=== PATIENT | female | born 1975 | race African-American/Black ===

== ENCOUNTER 2018-04-28 11:49 | Emergency (ER) | payer OTHER ==
[~2018-04-28] VITALS: Ht 172.7 cm; Wt 136.1 kg
--- OUTSIDE RECORDS SUMMARY | 2018-04-28 11:59 | XMS REPORT ---
Author Author Estuardo Waldrop [facility] eClinicalWorks Address Unknown Phone Unavailable Care Team Providers Care Head Automatic Sawyer Name Role Phone Estuardo Waldrop Unavailable Allergies No Known Allergies Problems Problem Type Condition ICD-9 Code Onset Dates Condition Status Problem Wheezing 786.07 Active Problem Hyperlipidemia NOS 272.4 Active Problem Diabetes mellitus 250.00 Active Problem Depression with anxiety 300.4 Active Medications Medication Code System Code Instructions Start Date End Date Status Dosage One Touch Test Strips NDC 0 test daily December 30, 2014 as directed OneTouch Glucometer NDC 0 for Diabetes test daily December 30, 2014 as directed Results No Known Results Summary Purpose eClinicalWorks Submission
--- OUTSIDE RECORDS SUMMARY | 2018-04-28 11:59 | XMS REPORT ---
Author Author Estuardo Waldrop [facility] eClinicalWorks Address Unknown Phone Unavailable Care Team Providers Care Cold Rolling Supervisor Name Role Phone Estuardo Waldrop Unavailable Allergies No Known Allergies Problems Problem Type Condition Code Onset Dates Condition Status Problem Depression with anxiety 300.4 Active Problem Wheezing 786.07 Active Problem Hyperlipidemia NOS 272.4 Active Problem Hyperlipidemia E78.5 Active Problem BMI 50.0-59.9, adult Z68.43 Active Problem Diabetes mellitus E11.9 Active Problem Osteoarthritis of both knees M17.0 Active Problem Diabetes mellitus 250.00 Active Problem Depression with anxiety F41.8 Active Problem Surgical menopause N95.8 Active Medications Medication Code System Code Instructions Start Date End Date Status Dosage [facility] 59246 325 mg-7.5 mg orally every 6 hours prn March 10, 2015 1 tab(s) Results No Known Results Summary Purpose eClinicalWorks Submission
--- OUTSIDE RECORDS SUMMARY | 2018-04-28 11:59 | XMS REPORT ---
Author Author Estuardo Waldrop [facility] Spec Address [address] [place] [address] Care Team Providers Care Computer Operations Manager Name Role Phone Estuardo Waldrop Unavailable PROBLEMS Type Condition ICD9-CM Code [id number] Code Onset Dates Condition Status SNOMED Code Problem Osteoarthritis of both knees M17.0 Active 432910195 Problem Depression with anxiety F41.8 Active 560984585 Problem Surgical menopause N95.8 Active 674204614 Problem Depression with anxiety 300.4 Active 548271826 Problem Hyperlipidemia NOS 272.4 Active 70617685 Problem Wheezing 786.07 Active 66079909 Problem Diabetes mellitus 250.00 Active 15601642 Problem Anxiety F41.9 Active 85618215 Problem Essential hypertension I10 Active 58349075 Problem Hyperlipidemia LDL goal <70 E78.5 Active 29993601 Problem BMI 50.0-59.9, adult Z68.43 Active 394542361 Problem Severe single current episode of major depressive disorder, without 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 Warner 09/18 Surgical History REGINALD/BSO--[place] 11/2001 Surgical History Bladder repair x 2 Surgical History Left knee meniscus repair Surgical History Laparoscopy Surgical History C/S x 3 Surgical History Ventral hernia repair
--- OUTSIDE RECORDS SUMMARY | 2018-04-28 11:59 | XMS REPORT | Referral Summary ---
Author Author [facility] Organization [facility] Address Unknown Phone Unavailable Care Team Providers Care Diesel Mechanic Apprentice Name Role Phone Estuardo Hope PCP Encounter VC Date(s): 02/14/18 - 02/15/18 [facility] [address] [place] [address]- Encounter Diagnosis Chest pain (Discharge Diagnosis) - 02/14/18 Diabetes (Discharge Diagnosis) - 02/14/18 Chest wall pain (Discharge Diagnosis) - 02/15/18 Hypertension (Discharge Diagnosis) - 02/15/18 Dyslipidemia (Discharge Diagnosis) - 02/15/18 Discharge Disposition: 01-Home or Self Care Attending Physician: Young Armendariz MD Admitting Physician: Logan Conde DO Vital Signs Most recent to 1 oldest [Reference Range]: Temperature Oral 36.7 degC [35.8-37.3 degC] (02/15/18 8:00 AM) Peripheral Pulse 67 bpm Rate [60-100 bpm] (02/14/18 9:29 PM) Heart Rate Monitored 77 bpm [60-100 bpm] (02/15/18 8:00 AM) Respiratory Rate 20 br/min [14-20 br/min] (02/15/18 8:00 AM) Blood Pressure 155/72 mmHg [90-140/60-90 mmHg] *HI* (02/15/18 8:00 AM) Mean Arterial 114 mmHg Pressure, Cuff (02/14/18 8:31 PM) SpO2 95 % (02/15/18 8:00 AM) Remote Telemetry Ongoing (02/15/18 8:00 AM) Problem List Condition Effective Dates Status Health Status Informant Acute Active pain(Confirmed) Cardiac Active disorder(Confirmed)1 Diabetes Active patient mellitus(Confirmed) No Chronic Problems Active 1Problem added automatically by system based on initiation of Cardiac Output/ Ineffective Cardiac Perfusion Plan of Care Allergies, Adverse Reactions, Alerts Substance Reaction Severity Status penicillin Adverse Reaction Active aspirin Adverse Reaction Active morphine Active nabumetone Adverse Reaction Active Compazine Active Reglan Active acetaminophen-HYDROcodone Adverse Reaction Active Medications atorvastatin 40 mg oral tablet 40 mg 1 tabs, Oral, Daily, # 30 tabs, 0 Refill(s) Start Date: 02/15/18 Status: Ordered Centrum Silver Ultra Women's 1 tabs, Oral, Bedtime (once a day), 0 Refill(s) Start Date: 02/14/18 Status: Ordered cyclobenzaprine 5 mg oral tablet 5 mg 1 tabs, Oral, TID, Muscle Spasm, X 5 days, # 10 tabs, 0 Refill(s) Start Date: 02/15/18 Stop Date: 02/20/18 Status: Ordered lisinopril 5 mg oral tablet 5 mg 1 tabs, Oral, Daily, # 30 tabs, 0 Refill(s) Start Date: 02/15/18 Stop Date: 03/17/18 Status: Ordered traZODone 50 mg oral tablet 50 mg 1 tabs, Oral, Daily, Anxiety, 0 Refill(s) Start Date: 02/14/18 Status: Ordered traZODone 50 mg oral tablet 100 mg 2 tabs, Oral, Bedtime (once a day), Sleep, 0 Refill(s) Start Date: 02/14/18 Status: Ordered Ventolin HFA 90 mcg/inh inhalation aerosol 2 puffs, Inhalation, QID, as needed for wheezing, 0 Refill(s) Start Date: 02/14/18 Status: Ordered Results Hematology Most recent to 1 oldest [Reference Range]: WBC [4.8-10.8 6.3 10*3/uL 10*3/uL] (02/15/18 4:28 AM) RBC [4.00-5.20] 4.11 (02/15/18 4:28 AM) Hgb [12.0-16.0 11.6 gm/dL gm/dL] *LOW* (02/15/18 4:28 AM) Hct [37.0-47.0 %] 37.2 % (02/15/18 4:28 AM) MCV [82.0-99.0 fL] 90.5 fL (02/15/18 4:28 AM) MCH [27.0-32.0 pg] 28.2 pg (02/15/18 4:28 AM) MCHC [32.0-36.0 31.2 gm/dL gm/dL] *LOW* (02/15/18 4:28 AM) RDW [11.5-14.5 %] 13.6 % (02/15/18 4:28 AM) Platelet [150-400 254 10*3/uL 10*3/uL] (02/15/18 4:28 AM) MPV [9.4-12.4 fL] 9.8 fL (02/15/18 4:28 AM) Immature 0.1 % Granulocytes (02/14/18 4:03 PM) [0.0-1.0 %] Neutrophils [51-75 56 % %] (02/14/18 4:03 PM) Lymphocytes [20-46 39 % %] (02/14/18 4:03 PM) Monocytes [4-11 %] 4 % (02/14/18 4:03 PM) Eosinophils [0-4 %] 1 % (02/14/18 4:03 PM) Basophils [0-2 %] 0 % (02/14/18 4:03 PM) Neutro Absolute 3.81 [1.90-7.00] (02/14/18 4:03 PM) Lymph Absolute 2.68 [0.80-3.30] (02/14/18 4:03 PM) [place] Absolute 0.27 [0.30-1.00] *LOW* (02/14/18 4:03 PM) Eos Absolute 0.08 [0.00-0.50] (02/14/18 4:03 PM) Baso Absolute 0.01 [0.00-0.20] (02/14/18 4:03 PM) Nucleated RBC 0.0 /100 WBC Automated [0 /100 (02/14/18 4:03 PM) WBC] Chemistry Most recent to 1 oldest [Reference Range]: Sodium Lvl [136-144 141 mEq/L mEq/L] (02/15/18 4:28 AM) Potassium Lvl 3.3 mEq/L [3.6-5.1 mEq/L] *LOW* (02/15/18 4:28 AM) Chloride [99-109 106 mEq/L mEq/L] (02/15/18 4:28 AM) CO2 [22-32 mEq/L] 27 mEq/L (02/15/18 4:28 AM) AGAP [3-20 mEq/L] 8 mEq/L (02/15/18 4:28 AM) BUN [4-20 mg/dL] 9 mg/dL (02/15/18 4:28 AM) Glucose Lvl [70-100 121 mg/dL mg/dL] *HI* (02/15/18 4:28 AM) Creatinine Lvl 0.68 mg/dL [0.44-1.03 mg/dL] (02/15/18 4:28 AM) eGFR [>60 mL/min] >60 mL/min 1 (02/15/18 4:28 AM) Calcium Lvl 9.0 mg/dL [8.6-10.0 mg/dL] (02/15/18 4:28 AM) Albumin Lvl [3.5-4.8 3.7 gm/dL gm/dL] (02/15/18 4:28 AM) Total Protein 7.6 gm/dL [6.1-7.9 gm/dL] (02/14/18 4:03 PM) Globulin [1.9-4.3 3.6 gm/dL gm/dL] (02/14/18 4:03 PM) ALT [14-54 U/L] 14 U/L (02/14/18 4:03 PM) AST [15-41 U/L] 16 U/L (02/14/18 4:03 PM) Alk Phos [26-104 83 U/L U/L] (02/14/18 4:03 PM) Bili Total [0.2-1.2 0.8 mg/dL 2 mg/dL] (02/14/18 4:03 PM) Phosphorus [2.4-4.7 5.5 mg/dL 3 mg/dL] *HI* (02/15/18 4:28 AM) Troponin [<0.06 <0.05 ng/mL ng/mL] (02/15/18 1:46 AM) Chol [0-199 mg/dL] 292 mg/dL *HI* (02/14/18 4:03 PM) Trig [0-149 mg/dL] 275 mg/dL *HI* (02/14/18 4:03 PM) HDL [40-84 mg/dL] 38 mg/dL *LOW* (02/14/18 4:03 PM) LDL [0-130 mg/dL] 199 mg/dL *HI* (02/14/18 4:03 PM) VLDL Cholesterol 55 mg/dL [0-28 mg/dL] *HI* (02/14/18 4:03 PM) Cardiac Risk 7.7 [0.0-5.0] *HI* (02/14/18 4:03 PM) TSH [0.35-5.50 1.30 mcIU/mL mcIU/mL] (02/14/18 4:03 PM) Hgb A1c [4.1-5.6 %] 6.6 % *HI* (02/14/18 4:03 PM) eAvg Glucose 142.7 mg/dL (02/14/18 4:03 PM) 1Result Comment: Multiply eGFR results by 1.21 for race. 2Result Comment: Naproxen, specifically the metabolite O-desmethylnaproxen, may cause spurious elevation in Total Bilirubin levels. 3Result Comment: High dosages of liposomal Amphotericin B (AmBisome) therapy or other drug preparations that use a liposomal envelope to facilitate drug delivery may cause falsely elevated results for phosphorus. Immunizations No data available for this section Procedures Procedure Date Related Diagnosis Body Site Status Hysterectomy Completed Social History Social History Type Response Smoking Status 10 or more cigarettes (1/2 pack or more)/day in last 30 days ; Type: Cigarettes; Tobacco use per day: 1/2 pack or more entered on: 02/14/18 Assessment and Plan No data available for this section
--- OUTSIDE RECORDS SUMMARY | 2018-04-28 11:59 | XMS REPORT ---
Author Author Estuardo Waldrop [facility] eClinicalWorks Address Unknown Phone Unavailable Care Team Providers Care School Cafeteria Cook Head Name Role Phone Estuardo Waldrop CP Unavailable Allergies No Known Allergies Problems Problem Type Condition Code Onset Dates Condition Status Problem Depression with anxiety 300.4 Active Problem Wheezing 786.07 Active Problem Hyperlipidemia NOS 272.4 Active Problem Hyperlipidemia LDL goal <70 E78.5 Active Problem BMI 50.0-59.9, adult Z68.43 Active Problem Type 2 diabetes mellitus without complications E11.9 Active Problem Osteoarthritis of both knees M17.0 Active Problem Diabetes mellitus 250.00 Active Problem Depression with anxiety F41.8 Active Problem Surgical menopause N95.8 Active Medications Medication Code System Code Instructions Start Date End Date Status Dosage [facility] 69697 325 mg-7.5 mg orally every 6 hours prn March 30, 2016 1 tab(s) Results No Known Results Summary Purpose eClinicalWorks Submission
--- OUTSIDE RECORDS SUMMARY | 2018-04-28 11:59 | XMS REPORT ---
Author Author Estuardo Waldrop [facility] eClinicalWorks Address Unknown Phone Unavailable Care Team Providers Care Coil Shaper Name Role Phone Estuardo Waldrop CP Unavailable [...] End Date Status Dosage [facility] 45352 325 mg-7.5 mg orally every 6 hours prn January 27, 2016 1 tab(s) Results No Known Results Summary Purpose eClinicalWorks Submission
--- OUTSIDE RECORDS SUMMARY | 2018-04-28 11:59 | XMS REPORT ---
Author Author Estuardo Waldrop Organization [facility] Spec Address [address] [place] [address] Care Team Providers Care Customer Care Associate Name Role Phone Estuardo Waldrop Unavailable PROBLEMS Type Condition ICD9-CM Code [id number] Code Onset Dates Condition Status SNOMED Code Problem Osteoarthritis of both knees M17.0 Active 261428503 Problem Depression with anxiety F41.8 Active 156944751 Problem Surgical menopause N95.8 Active 428377851 Problem Depression with anxiety 300.4 Active 278917580 Problem Hyperlipidemia NOS 272.4 Active 61900748 Problem Wheezing 786.07 Active 66824368 Problem Diabetes mellitus 250.00 Active 47306166 Problem Anxiety F41.9 Active 22076602 Problem Essential hypertension I10 Active 24664443 Problem Hyperlipidemia LDL goal <70 E78.5 Active 51662057 Problem BMI 50.0-59.9, adult Z68.43 Active 096686239 Problem Severe single current episode of major depressive disorder, 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
--- OUTSIDE RECORDS SUMMARY | 2018-04-28 11:59 | XMS REPORT ---
Author Author Estuardo Waldrop [facility] eClinicalWorks Address Unknown Phone Unavailable Care Team Providers Care Tanning Solution Maker Name Role Phone Estuardo Waldrop Unavailable Allergies No Known Allergies Problems Problem Type Condition ICD-9 Code Onset Dates Condition Status Problem Wheezing 786.07 Active Problem Hyperlipidemia NOS 272.4 Active Problem Diabetes mellitus 250.00 Active Problem Depression with anxiety 300.4 Active Medications No Known Medications Results No Known Results Summary Purpose eClinicalWorks Submission
--- OUTSIDE RECORDS SUMMARY | 2018-04-28 11:59 | XMS REPORT ---
Author Author Estuardo Waldrop Organization eClinicalWorks Address Unknown Phone Unavailable Care Team Providers Care Aquatic Physiotherapist Name Role Phone Estuardo Waldrop Unavailable Allergies No Known Allergies Problems Problem Type Condition ICD-9 Code Onset Dates Condition Status Problem Wheezing 786.07 Active Problem Hyperlipidemia NOS 272.4 Active Problem Diabetes mellitus 250.00 Active Problem Depression with anxiety 300.4 Active Medications Medication Code System Code Instructions Start Date End Date Status Dosage [facility] 85283 325 mg-7.5 mg orally every 6 hours December 23, 2014 1 tab(s) Results No Known Results Summary Purpose eClinicalWorks Submission
--- OUTSIDE RECORDS SUMMARY | 2018-04-28 11:59 | XMS REPORT | Referral Summary ---
Author Author [facility] Organization [facility] Address Unknown Phone Unavailable Care Team Providers Care Summer Associate Name Role Phone No PCP, Pt States PCP Encounter VC Date(s): 07/18/16 - 07/18/[address] [facility] [address] [place] [address]- Discharge Diagnosis: Muscle strain Discharge Disposition: 01-Home or Self Care Attending Physician: Wagner Bowen MD Admitting Physician: Wagner Bowen MD Vital Signs Most recent to 1 oldest [Reference Range]: Temperature Temporal 36 degC Artery [36.3-37.8 *LOW* degC] (07/18/16 3:37 PM) Peripheral Pulse 79 bpm Rate [60-100 bpm] (07/18/16 5:15 PM) Respiratory Rate 14 br/min [14-20 br/min] (07/18/16 5:15 PM) Blood Pressure 124/88 mmHg [90-140/60-90 mmHg] (07/18/16 5:15 PM) SpO2 100 % (07/18/16 5:15 PM) Problem List No Known Problems Allergies, Adverse Reactions, Alerts Substance Reaction Severity Status acetaminophen-HYDROcodone Adverse Reaction Active aspirin Adverse Reaction Active Compazine Active morphine Active nabumetone Adverse Reaction Active penicillin Adverse Reaction Active Reglan Active Medications atorvastatin Oral, Daily, 0 Refill(s) Start Date: 07/18/16 Status: Ordered cyclobenzaprine 10 mg oral tablet 10 mg 1 tabs, Oral, TID, as needed for spasm, X 5 days, # 15 tabs, 0 Refill(s) Start Date: 07/18/16 Stop Date: 07/23/16 Status: Ordered ibuprofen 800 mg oral tablet 800 mg 1 tabs, Oral, q8hr, as needed for pain, X 7 days, # 21 tabs, 0 Refill(s) Start Date: 07/18/16 Stop Date: 07/25/16 Status: Ordered [place] 5 mg-325 mg oral tablet 1 tabs, Oral, q6hr, as needed for pain, X 5 days, # 12 tabs, 0 Refill(s) Start Date: 07/18/16 Stop Date: 07/23/16 Status: Ordered Premarin Oral, Daily, 0 Refill(s) Start Date: 07/18/16 Status: Ordered Results No data available for this section Immunizations No data available for this section Procedures Procedure Date Related Diagnosis Body Site Hysterectomy Social History Social History Type Response Smoking Status Current every day smoker; Tobacco use per day: Between 1/4 pack and 1/2 pack Assessment and Plan No data available for this section
--- OUTSIDE RECORDS SUMMARY | 2018-04-28 11:59 | XMS REPORT ---
Author Author Estuardo Waldrop Organization [facility] Spec Address [address] [place] [address] Care Team Providers Care Broadloom Weaver Name Role Phone Estuardo Waldrop Unavailable PROBLEMS Type Condition ICD9-CM Code [id number] Code Onset Dates Condition Status SNOMED Code Problem Osteoarthritis of both knees M17.0 Active 125937385 Problem Depression with anxiety F41.8 Active 843699013 Problem Surgical menopause N95.8 Active 509589374 Problem Depression with anxiety 300.4 Active 723853725 Problem Hyperlipidemia NOS 272.4 Active 47366931 Problem Wheezing 786.07 Active 77015696 Problem Diabetes mellitus 250.00 Active 31592817 Problem Anxiety F41.9 Active 53557555 Problem Essential hypertension I10 Active 12830875 Problem Hyperlipidemia LDL goal <70 E78.5 Active 02128640 Problem BMI 50.0-59.9, adult Z68.43 Active 432965211 Problem Severe single current episode of major depressive disorder, 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 Non Drug Allergy Mar, Active ASA hives Non Drug Allergy Mar, Active Compazine anxiety Non Drug Allergy Mar, Active PCN hives Non Drug Allergy Mar, Active SOCIAL HISTORY No smoking Hx information available PLAN OF CARE Activity Details Follow Up prn, 4 Months Reason:null VITAL SIGNS Temperature 98.3 degrees Fahrenheit 2017-03-09 Weight 363.4 lbs 2017-03-09 Height 68 in 2017-03-09 BMI 55.25 kg/m2 2017-03-09 Oximetry 96 2017-03-09 Blood pressure systolic 132 mm Hg 2017-03-09 Blood pressure diastolic 90 mm Hg 2017-03-09 MEDICATIONS Medication Instructions Dosage Frequency Start Date End Date Duration Status Invokamet 150 mg-1000 mg orally 2 times a day (with meals) 1 tab(s) 09 Feb, 2017 Active Ventolin HFA CFC free 90 mcg/inh inhaled 4 times a day 2 puff(s) 6h Oct 30 day(s) Active BuPROPion Hydrochloride XL 150 mg/24 hours orally every 24 hours 1 tab(s) Nov, 30 day(s) Active One Touch Test Strips as directed February, Active atorvastatin 40 mg orally once a day (at bedtime) 1 tab(s) Nov, Active lisinopril/hctz 20 mg/12.5 orally once a day 1 tab(s) 24h Dec, Active OneTouch Glucometer for Diabetes as directed Dec, Active one touch lancets as directed 12h February, Active RESULTS No Results PROCEDURES Procedure Date Ordered Related Diagnosis Body Site Urine Culture/[place] Count March 09, 2017 Prev Visit, Est - Age 40-64 March 09, 2017 Comprehensive Metabolic Panel March 09, 2017 Glycated Hemoglobin Test March 09, 2017 Boostrix March 09, 2017 Urinalysis, Auto, w/o Scope March 09, 2017 VENIPUNCT, ROUTINE* March 09, 2017 Automated Hemogram-CBC w/Diff March 09, 2017 Lipid Panel March 09, 2017 Microalbumin, Quantitative March 09, 2017 Assay of Creatinine Urine March 09, 2017 IMMUNIZATIONS Vaccine Route Administration Date Status Boostrix IM Intramuscular March 09, 2017 Administered
--- OUTSIDE RECORDS SUMMARY | 2018-04-28 11:59 | XMS REPORT ---
Author Author Estuardo Waldrop [facility] eClinicalWorks Address Unknown Phone Unavailable Care Team Providers Care Leather Roller Name Role Phone Estuardo Waldrop Unavailable Allergies [...] Start Date End Date Status Dosage [facility] 11193 325 mg-7.5 mg orally every 6 hours prn March 10, 2015 1 tab(s) Results No Known Results Summary Purpose eClinicalWorks Submission
--- OUTSIDE RECORDS SUMMARY | 2018-04-28 12:00 | XMS REPORT ---
Author Author Estuardo Waldrop [facility] eClinicalWorks Address Unknown Phone Unavailable Care Team Providers Care Credit Risk Review Officer Name Role Phone Estuardo Waldrop Unavailable Allergies [...] Instructions Start Date End Date Status Dosage [facility] [address] 325 mg-7.5 mg orally every 6 hours prn March 10, 2015 1 tab(s) Results No Known Results Summary Purpose eClinicalWorks Submission
--- OUTSIDE RECORDS SUMMARY | 2018-04-28 12:00 | XMS REPORT ---
Author Author Estuardo Waldrop [facility] eClinicalWorks Address Unknown Phone Unavailable Care Team Providers Care Dry Chain Offbearer Name Role Phone Estuardo Waldrop CP Unavailable [...] Instructions Start Date End Date Status Dosage Acetaminophen-Hydrocodone Bitartrate [facility] 677 325 mg-7.5 mg orally every 6 hours Jun 09, 2016 1 tab(s) Results No Known Results Summary Purpose eClinicalWorks Submission
--- OUTSIDE RECORDS SUMMARY | 2018-04-28 12:00 | XMS REPORT ---
Author Author Estuardo Waldrop Organization eClinicalWorks Address Unknown Phone Unavailable Care Team Providers Care Washer Machine Name Role Phone Estuardo Waldrop Unavailable Allergies No Known Allergies Problems Problem Type Condition Code Onset Dates Condition Status Problem Wheezing 786.07 Active Problem Hyperlipidemia NOS 272.4 Active Problem Diabetes mellitus 250.00 Active Problem Depression with anxiety 300.4 Active Medications Medication Code System Code Instructions Start Date End Date Status Dosage [facility] 29894 325 mg-7.5 mg orally every 6 hours March 10, 2015 1 tab(s) Results No Known Results Summary Purpose eClinicalWorks Submission
--- OUTSIDE RECORDS SUMMARY | 2018-04-28 12:00 | XMS REPORT ---
Author Author Estuardo Waldrop [facility] eClinicalWorks Address Unknown Phone Unavailable Care Team Providers Care Home Health Care Physician Name Role Phone Estuardo Waldrop Unavailable Allergies [...] F41.8 Active Problem Surgical menopause N95.8 Active Assessment Encounter for long-term current use of medication Z79.899 Active Assessment Diabetes mellitus E11.9 Active Assessment Hyperlipidemia E78.5 Active Medications Medication Code System Code Instructions Start Date End Date Status Dosage atorvastatin NDC 42117 40 mg orally once a day (at bedtime) Aug 10, 2015 1 tab(s) estradiol NDC 94087 0.5 mg orally once a day Aug 11, 2015 1 tab(s) Results No Known Results Summary Purpose eClinicalWorks Submission
--- OUTSIDE RECORDS SUMMARY | 2018-04-28 12:00 | XMS REPORT ---
Author Author Estuardo Waldrop [facility] eClinicalWorks Address Unknown Phone Unavailable Care Team Providers Care Test Lead Application Testing Name Role Phone Estuardo Waldrop CP Unavailable [...] Date End Date Status Dosage Acetaminophen-Hydrocodone Bitartrate [facility] 677 325 mg-7.5 mg orally every 6 hours Jun 09, 2016 1 tab(s) Results No Known Results Summary Purpose eClinicalWorks Submission
--- OUTSIDE RECORDS SUMMARY | 2018-04-28 12:00 | XMS REPORT ---
Author Author Estuardo Waldrop Organization [facility] Spec Address [address] [place] [address] Care Team Providers Care Cellophane Wrapping Examiner Name Role Phone Estuardo Waldrop Unavailable PROBLEMS Type Condition ICD9-CM Code [id number] Code Onset Dates Condition Status SNOMED Code Problem Osteoarthritis of both knees M17.0 Active 096186783 Problem Depression with anxiety F41.8 Active 050224284 Problem Surgical menopause N95.8 Active 243978027 Problem Anxiety F41.9 Active 91548144 Problem Essential hypertension I10 Active 34294733 Problem Hyperlipidemia LDL goal <70 E78.5 Active 92950525 Problem BMI 50.0-59.9, adult Z68.43 Active 827802554 Problem Severe single current episode of major depressive disorder, 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 Non Drug Allergy Nov, Active ASA hives Non Drug Allergy Nov, Active Compazine anxiety Non Drug Allergy Nov, Active PCN hives Non Drug Allergy Nov, Active SOCIAL HISTORY No smoking Hx information available PLAN OF CARE VITAL SIGNS Temperature 98.9 degrees Fahrenheit 2016-11-17 Weight 374.8 lbs 2016-11-17 Height 68 in 2016-11-17 BMI 56.98 kg/m2 2016-11-17 Oximetry 98 2016-11-17 Blood pressure systolic 142 mm Hg 2016-11-17 Blood pressure diastolic 90 mm Hg 2016-11-17 MEDICATIONS Medication Instructions Dosage Frequency Start Date End Date Duration Status one touch lancets as directed 12h February, Active lisinopril/hctz 20 mg/12.5 orally once a day 1 tab(s) 24h Dec, 30 days Active atorvastatin 40 mg orally once a day (at bedtime) 1 tab(s) Nov, 30 day(s) Active One Touch Test Strips as directed February, Active BuPROPion Hydrochloride XL 150 mg/24 hours orally every 24 hours 1 tab(s) Nov, 30 day(s) Active Invokamet 150 mg-1000 mg orally 2 times a day (with meals) 1 tab(s) Nov, 0 Active OneTouch Glucometer for Diabetes as directed Dec, Active Ventolin HFA CFC free 90 mcg/inh inhaled 4 times a day 2 puff(s) 6h Oct 30 day(s) Active RESULTS Name Result Date Reference Range Hemoglobin A1c 2016-11-17 HBA1C 7.7 4.5-6.2 Lipid Panel 2016-11-17 CHOLESTEROL 275 0-200 TRIGLYCERIDES 176 30-150 HDL CHOLESTEROL 41 32-96 LDL (CALCULATED) 199 0-99 HDL RISK FACTOR 6.7 0.0-4.0 BMP - Basic Metabolic Panel (8) 2016-11-17 SODIUM 142 136-145 POTASSIUM 4.4 3.5-5.1 CHLORIDE 104 98-107 CARBON DIOXIDE 32 21-32 GLUCOSE 132 74-108 BUN 8 7-18 CREATININE 0.62 0.60-1.30 BUN/CREAT RATIO 12.9 12.0-20.0 CALCIUM 8.6 8.5-10.1 PROCEDURES Procedure Date Ordered Related Diagnosis Body Site Glycated Hemoglobin Test Nov 17, 2016 Lipid Panel Nov 17, 2016 HYSTERECTOMY/BLADDER REPAIR Nov 17, 2016 Basic Metabolic Panel Nov 17, 2016 Office/Outpatient Visit-Est Nov 17, 2016 VENIPUNCT, ROUTINE* Nov 17, 2016 IMMUNIZATIONS No Known Immunizations
--- OUTSIDE RECORDS SUMMARY | 2018-04-28 12:00 | XMS REPORT ---
Author Author Estuardo Waldrop [facility] eClinicalWorks Address Unknown Phone Unavailable Care Team Providers Care Stockholder Name Role Phone Estuardo Waldrop Unavailable Allergies No Known Allergies Problems Problem Type Condition Code Onset Dates Condition Status Problem Wheezing 786.07 Active Problem Hyperlipidemia NOS 272.4 Active Problem Diabetes mellitus 250.00 Active Problem Depression with anxiety 300.4 Active Medications Medication Code System Code Instructions Start Date End Date Status Dosage [facility] 11235 325 mg-7.5 mg orally every 6 hours January 19, 2015 1 tab(s) Results No Known Results Summary Purpose eClinicalWorks Submission
--- OUTSIDE RECORDS SUMMARY | 2018-04-28 12:00 | XMS REPORT ---
Author Author Estuardo Waldrop Organization eClinicalWorks Address Unknown Phone Unavailable Care Team Providers Care Pharmacy Customer Care Specialist Name Role Phone Estuardo Waldrop Unavailable Allergies No Known Allergies Problems Problem Type Condition Code Onset Dates Condition Status Problem Wheezing 786.07 Active Problem Hyperlipidemia NOS 272.4 Active Problem Diabetes mellitus 250.00 Active Problem Depression with anxiety 300.4 Active Medications Medication Code System Code Instructions Start Date End Date Status Dosage alprazolam NDC 62260 1 mg orally 3 times a day February 09, 2015 1/2 to 1 tab(s) [place] NDC 19644 325 mg-7.5 mg orally every 6 hours February 09, 2015 1 tab(s) one touch lancets NDC 0 BID February 09, 2015 as directed One Touch Test Strips NDC 0 test daily February 09, 2015 as directed Results No Known Results Summary Purpose eClinicalWorks Submission
--- OUTSIDE RECORDS SUMMARY | 2018-04-28 12:00 | XMS REPORT ---
Author Author Estuardo Waldrop [facility] eClinicalWorks Address Unknown Phone Unavailable Care Team Providers Care Drive Tester Name Role Phone Estuardo Waldrop Unavailable Allergies [...] Instructions Start Date End Date Status Dosage [facility] 92875 325 mg-7.5 mg orally every 6 hours prn March 10, 2015 1 tab(s) Results No Known Results Summary Purpose eClinicalWorks Submission
--- OUTSIDE RECORDS SUMMARY | 2018-04-28 12:00 | XMS REPORT ---
Author Author Estuardo Waldrop eClinicalWorks Address Unknown Phone Unavailable Care Team Providers Care Mathematical Statistician Name Role Phone Estuardo Waldrop CP Unavailable Allergies, Adverse Reactions, Alerts Substance Reaction Event Type Metformin diarrhea. Non Drug Allergy ASA hives Non Drug Allergy Compazine anxiety Non Drug Allergy PCN hives Non Drug Allergy Problems Problem Type Condition Code Onset Dates [...] Active Problem Surgical menopause N95.8 Active Assessment Pedal edema R60.0 Active Assessment Essential (primary) hypertension I10 Active Assessment Type 2 diabetes mellitus without complications E11.9 Active Assessment BMI 50.0-59.9, adult Z68.43 Active Assessment Depression with anxiety F41.8 Active Assessment Bilateral primary osteoarthritis of knee M17.0 Active Assessment Hyperlipidemia LDL goal <70 E78.5 Active Assessment Chronic, continuous use of opioids F11.90 Active Medications Medication Code System Code Instructions Start Date End Date Status Dosage lisinopril/hctz NDC 07503 20 mg/12.5 orally once a day December 29, 2015 1 tab(s) atorvastatin NDC 96916 40 mg orally once a day (at bedtime) Aug 10, 2015 1 tab(s) Ventolin HFA NDC 37478 CFC free 90 mcg/inh inhaled 4 times a day Oct 23, 2013 2 puff(s) one touch lancets NDC 0 BID February 09, 2015 as directed [place] NDC 04555 325 mg-7.5 mg orally every 6 hours prn March 10, 2015 1 tab(s) lorazepam NDC 39935 1 mg orally 3 times a day 1 tab(s) glyburide NDC 05534 5 mg orally twice daily December 29, 2014 1 tab(s) OneTouch Glucometer NDC 0 for Diabetes test daily December 30, 2014 as directed One Touch Test Strips NDC 0 test daily February 09, 2015 as directed Procedures Procedure Coding System Code Date Office/Outpatient Visit-Est CPT-4 85630 December 29, 2015 Vital Signs Date/Time: December 29, 2015 Temperature 98.4 F Blood Pressure Diastolic 80 mm Hg Blood Pressure Systolic 130 mm Hg BMI 58.50 Index Height 68 in Weight 384.8 lbs Pulse 94 /min Results No Known Results Summary Purpose eClinicalWorks Submission
--- OUTSIDE RECORDS SUMMARY | 2018-04-28 12:00 | XMS REPORT ---
Author Author Estuardo Waldrop [facility] eClinicalWorks Address Unknown Phone Unavailable Care Team Providers Care Forest Pathology Teacher Name Role Phone Estuardo Waldrop Unavailable Allergies No Known Allergies Problems Problem Type Condition ICD-9 Code Onset Dates Condition Status Problem Wheezing 786.07 Active Problem Hyperlipidemia NOS 272.4 Active Problem Diabetes mellitus 250.00 Active Problem Depression with anxiety 300.4 Active Medications Medication Code System Code Instructions Start Date End Date Status Dosage [facility] 09900 325 mg-7.5 mg orally every 6 hours March 10, 2015 1 tab(s) Results No Known Results Summary Purpose eClinicalWorks Submission
--- OUTSIDE RECORDS SUMMARY | 2018-04-28 12:00 | XMS REPORT ---
Author Author Estuardo Waldrop [facility] eClinicalWorks Address Unknown Phone Unavailable Care Team Providers Care Security Sme Name Role Phone Estuardo Waldrop CP Unavailable [...] Date End Date Status Dosage Acetaminophen-Hydrocodone Bitartrate [facility] 677 325 mg-7.5 mg orally every 6 hours May 03, 2016 1 tab(s) Results No Known Results Summary Purpose eClinicalWorks Submission
--- OUTSIDE RECORDS SUMMARY | 2018-04-28 12:00 | XMS REPORT ---
Author Author Estuardo Waldrop [facility] eClinicalWorks Address Unknown Phone Unavailable Care Team Providers Care Basin Cleaner Name Role Phone Estuardo Waldrop Unavailable Allergies No Known Allergies Problems Problem Type Condition ICD-9 Code Onset Dates Condition Status Problem Wheezing 786.07 Active Problem Hyperlipidemia NOS 272.4 Active Problem Diabetes mellitus 250.00 Active Assessment Hyperlipidemia NOS 272.4 Active Problem Depression with anxiety 300.4 Active Assessment Diabetes mellitus 250.00 Active Medications Medication Code System Code Instructions Start Date End Date Status Dosage glyburide [facility] 83047 5 mg orally once a day December 29, 2014 1 tab(s) Results No Known Results Summary Purpose eClinicalWorks Submission
--- OUTSIDE RECORDS SUMMARY | 2018-04-28 12:00 | XMS REPORT ---
Author Author Estuardo Waldrop Organization eClinicalWorks Address Unknown Phone Unavailable Care Team Providers Care Carpet Installer Name Role Phone Estuardo Waldrop Unavailable Allergies No Known Allergies Problems Problem Type Condition ICD-9 Code Onset Dates Condition Status Problem Wheezing 786.07 Active Problem Hyperlipidemia NOS 272.4 Active Problem Diabetes mellitus 250.00 Active Problem Depression with anxiety 300.4 Active Medications Medication Code System Code Instructions Start Date End Date Status Dosage glyburide NDC 63028 5 mg orally once a day December 29, 2014 1 tab(s) [place] NDC 01887 325 mg-7.5 mg orally every 6 hours March 10, 2015 1 tab(s) Results No Known Results Summary Purpose eClinicalWorks Submission
--- OUTSIDE RECORDS SUMMARY | 2018-04-28 12:01 | XMS REPORT ---
Author Author Estuardo Waldrop [facility] eClinicalWorks Address Unknown Phone Unavailable Care Team Providers Care Paint And Table Edger Name Role Phone Estuardo Waldrop Unavailable Allergies [...] Start Date End Date Status Dosage [facility] 66291 325 mg-7.5 mg orally every 6 hours prn March 10, 2015 1 tab(s) Results No Known Results Summary Purpose eClinicalWorks Submission
--- OUTSIDE RECORDS SUMMARY | 2018-04-28 12:01 | XMS REPORT ---
Author Author Estuardo Waldrop [facility] eClinicalWorks Address Unknown Phone Unavailable Care Team Providers Care Manager Employee Benefits Name Role Phone Estuardo Waldrop CP Unavailable [...] Active Problem Surgical menopause N95.8 Active Assessment Depression with anxiety F41.8 Active Assessment BMI 50.0-59.9, adult Z68.43 Active Assessment Hyperlipidemia E78.5 Active Assessment Osteoarthritis of both knees M17.0 Active Assessment Diabetes mellitus E11.9 Active Medications Medication Code System Code Instructions Start Date End Date Status Dosage one touch lancets NDC 0 BID February 09, 2015 as directed [place] NDC 16104 325 mg-7.5 mg orally every 6 hours prn March 10, 2015 1 tab(s) glyburide NDC 34088 5 mg orally once a day December 29, 2014 1 tab(s) Ventolin HFA NDC 26968 CFC free 90 mcg/inh inhaled 4 times a day Oct 23, 2013 2 puff(s) OneTouch Glucometer NDC 0 for Diabetes test daily December 30, 2014 as directed One Touch Test Strips NDC 0 test daily February 09, 2015 as directed Procedures Procedure Coding System Code Date Basic Metabolic Panel CPT-4 69471 Jul 15, 2015 Lipid Panel CPT-4 88222 Jul 15, 2015 Glycated Hemoglobin Test CPT-4 44611 Jul 15, 2015 Office/Outpatient Visit-Est CPT-4 77843 Jul 15, 2015 VENIPUNCT, ROUTINE* CPT-4 99450 Jul 15, 2015 Vital Signs Date/Time: Jul 15, 2015 Temperature 98.9 F Blood Pressure Diastolic 80 mm Hg Blood Pressure Systolic 120 mm Hg BMI 57.68 Index Height 68 in Weight 379.4 lbs Pulse 96 /min Results Name Result Date Reference Range Unit Abnormality Flag Hemoglobin A1c Summary Purpose eClinicalWorks Submission
--- OUTSIDE RECORDS SUMMARY | 2018-04-28 12:01 | XMS REPORT ---
Author Author Estuardo Waldrop [facility] eClinicalWorks Address Unknown Phone Unavailable Care Team Providers Care Dry Pan Feeder Name Role Phone Estuardo Waldrop Unavailable Allergies [...] Start Date End Date Status Dosage [facility] 98522 325 mg-7.5 mg orally every 6 hours prn March 10, 2015 1 tab(s) Results No Known Results Summary Purpose eClinicalWorks Submission
--- OUTSIDE RECORDS SUMMARY | 2018-04-28 12:01 | XMS REPORT ---
Author Author Estuardo Waldrop [facility] eClinicalWorks Address Unknown Phone Unavailable Care Team Providers Care Sewing Machine Operator Semiautomatic Name Role Phone Estuardo Waldrop Unavailable Allergies No Known Allergies Problems Problem Type Condition ICD-9 Code Onset Dates Condition Status Problem Wheezing 786.07 Active Problem Hyperlipidemia NOS 272.4 Active Problem Diabetes mellitus 250.00 Active Problem Depression with anxiety 300.4 Active Assessment Wheezing 786.07 Active Medications Medication Code System Code Instructions Start Date End Date Status Dosage [place] NDC 10520 325 mg-7.5 mg orally every 6 hours March 10, 2015 1 tab(s) Ventolin HFA NDC 70689 CFC free 90 mcg/inh inhaled 4 times a day Oct 23, 2013 2 puff(s) Results No Known Results Summary Purpose eClinicalWorks Submission
--- OUTSIDE RECORDS SUMMARY | 2018-04-28 12:02 | XMS REPORT ---
Author Author Estuardo Waldrop [facility] eClinicalWorks Address Unknown Phone Unavailable Care Team Providers Care Environmental Maintenance Worker Name Role Phone Estuardo Waldrop CP Unavailable Allergies, Adverse Reactions, Alerts Substance Reaction Event Type Metformin diarrhea. Non Drug Allergy ASA hives Non Drug Allergy Compazine anxiety Non Drug Allergy PCN hives Non Drug Allergy Problems Problem Type Condition ICD-9 Code Onset Dates Condition Status Problem Wheezing 786.07 Active Problem Hyperlipidemia NOS 272.4 Active Problem Diabetes mellitus 250.00 Active Assessment Diarrhea 787.91 Active Problem Depression with anxiety 300.4 Active Assessment Abdominal pain, acute, right lower quadrant 789.03 Active Medications Medication Code System Code Instructions Start Date End Date Status Dosage Januvia MULTUM 51915 100 mg orally once a day Oct 23, 2013 Active 1 tab(s) [place] MULTUM 38703 325 mg-5 mg orally every 6 hours January 24, 2014 Active 1 tab(s) Ventolin HFA MULTUM 21504 CFC free 90 mcg/inh inhaled 4 times a day Oct Active 2 puff(s) Cymbalta MULTUM 17577 30 mg orally 2 times a day Oct 23, 2013 Active 1 cap(s) Diflucan MULTUM 3884 150 mg orally once January 24, 2014 Active 1 tab(s) Cipro MULTUM 112 500 mg orally every 12 hours January 24, 2014 Active 1 tab(s) Procedures Procedure Coding System Code Date Office/Outpatient Visit-Est CPT-4 18703 January 24, 2014 Vital Signs Date/Time: January 24, 2014 Temperature 98.1 F Blood Pressure Diastolic 86 mm Hg Blood Pressure Systolic 140 mm Hg Height 68 in Weight 376 lbs Results No Known Results Summary Purpose eClinicalWorks Submission
--- OUTSIDE RECORDS SUMMARY | 2018-04-28 12:02 | XMS REPORT ---
Author Author Estuardo Waldrop [facility] eClinicalWorks Address Unknown Phone Unavailable Care Team Providers Care Client Delivery Specialist Name Role Phone Estuardo Waldrop Unavailable Allergies No Known Allergies Problems Problem Type Condition Code Onset Dates Condition Status Problem Wheezing 786.07 Active Problem Hyperlipidemia NOS 272.4 Active Problem Diabetes mellitus 250.00 Active Problem Depression with anxiety 300.4 Active Medications Medication Code System Code Instructions Start Date End Date Status Dosage [facility] 37043 325 mg-7.5 mg orally every 6 hours prn March 10, 2015 1 tab(s) Results No Known Results Summary Purpose eClinicalWorks Submission
--- OUTSIDE RECORDS SUMMARY | 2018-04-28 12:02 | XMS REPORT ---
Author Author Estuardo Waldrop Organization [facility] Spec Address [address] [place] [address] Care Team Providers Care Cnp Name Role Phone Estuardo Waldrop Unavailable PROBLEMS Type Condition ICD9-CM Code [id number] Code Onset Dates Condition Status SNOMED Code Problem Osteoarthritis of both knees M17.0 Active 555842904 Problem Depression with anxiety F41.8 Active 009915616 Problem Surgical menopause N95.8 Active 071509980 Problem Depression with anxiety 300.4 Active 711070046 Problem Hyperlipidemia NOS 272.4 Active 69798556 Problem Wheezing 786.07 Active 26258406 Problem Diabetes mellitus 250.00 Active 54645755 Problem Anxiety F41.9 Active 37735369 Problem Essential hypertension I10 Active 35541295 Problem Hyperlipidemia LDL goal <70 E78.5 Active 41984964 Problem BMI 50.0-59.9, adult Z68.43 Active 484834734 Problem Severe single current episode of major depressive disorder, 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
--- OUTSIDE RECORDS SUMMARY | 2018-04-28 12:02 | XMS REPORT ---
Author Author Estuardo Waldrop Organization eClinicalWorks Address Unknown Phone Unavailable Care Team Providers Care Math Coach Name Role Phone Estuardo Waldrop CP Unavailable Allergies, Adverse Reactions, Alerts Substance Reaction Event Type Metformin diarrhea. Non Drug Allergy ASA hives Non Drug Allergy Compazine anxiety Non Drug Allergy PCN hives Non Drug Allergy Problems Problem Type Condition ICD-9 Code Onset Dates Condition Status Problem Wheezing 786.07 Active Problem Hyperlipidemia NOS 272.4 Active Problem Diabetes mellitus 250.00 Active Assessment Parotid swelling 784.2 Active Assessment Discomfort of parotid gland 527.9 Active Problem Depression with anxiety 300.4 Active Assessment Pharyngitis 462 Active Medications Medication Code System Code Instructions Start Date End Date Status Dosage Tamsulosin Hydrochloride NDC 867016 0.4 mg orally once a day Jun 13, 2014 Active 1 cap(s) [place] NDC 36724 325 mg-7.5 mg orally every 6 hours January 24, 2014 Active 1 tab(s) Ventolin HFA NDC 05118 CFC free 90 mcg/inh inhaled 4 times a day Oct 23, 2013 Active 2 puff(s) Keflex NDC 1271 500 mg orally 4 times a day Aug 03, 2014 Active 1 cap( s) Procedures Procedure Coding System Code Date Office/Outpatient Visit-Est CPT-4 99438 Jul 11, 2014 Vital Signs Date/Time: Jul 11, 2014 Temperature 98.1 F Blood Pressure Diastolic 80 mm Hg Blood Pressure Systolic 134 mm Hg BMI 57.73 Index Height 68 in Weight 379.7 lbs Pulse 84 /min Results No Known Results Summary Purpose eClinicalWorks Submission
--- OUTSIDE RECORDS SUMMARY | 2018-04-28 12:02 | XMS REPORT ---
Author Author Estuardo Waldrop Organization eClinicalWorks Address Unknown Phone Unavailable Care Team Providers Care Neon Glass Bender Name Role Phone Estuardo Waldrop CP Unavailable Allergies, Adverse Reactions, Alerts Substance Reaction Event Type Meforin diarrhea. Non Drug Allergy ASA hives Non Drug Allergy Compazine anxiety Non Drug Allergy PCN hives Non Drug Allergy Problems Problem Type Condition ICD-9 Code Onset Dates Condition Status Assessment Wheezing 786.07 Active Assessment Hyperlipidemia NOS 272.4 Active Assessment Depression with anxiety 300.4 Active Problem Diabetes mellitus 250.00 Active Problem Wheezing 786.07 Active Assessment Exam, General Adult Medical V70.0 Active Assessment Diabetes mellitus 250.00 Active Problem Hyperlipidemia NOS 272.4 Active Problem Depression with anxiety 300.4 Active Medications Medication Code System Code Instructions Start Date End Date Status Dosage Ventolin HFA MULTUM 13623 CFC free 90 mcg/inh inhaled 4 times a day Oct Active 2 puff(s) Januvia MULTUM 08746 100 mg orally once a day Oct 23, 2013 Active 1 tab(s) Cymbalta MULTUM 24768 30 mg orally 2 times a day Oct 23, 2013 Active 1 cap(s) Procedures Procedure Coding System Code Date Office/Outpatient Visit-New CPT-4 11154 Oct 23, 2013 Glycated Hemoglobin Test CPT-4 37917 Oct 23, 2013 Prev Visit, New - Age 18-39 CPT-4 46973 Oct 23, 2013 Automated Hemogram-CBC w/Diff CPT-4 72659 Oct 23, 2013 Comprehensive Metabolic Panel CPT-4 01233 Oct 23, 2013 Drawing Blood CPT-4 76795 Oct 23, 2013 Urinalysis, Auto, w/o Scope CPT-4 03060 Oct 23, 2013 Vital Signs Date/Time: Oct 23, 2013 Temperature 98.3 F Blood Pressure Diastolic 90 mm Hg Blood Pressure Systolic 132 mm Hg Height 68 inches Weight 371.9 lbs Cardiac Monitoring Heart Rate 88 Beats per Minute Results No Known Results Summary Purpose eClinicalWorks Submission
--- OUTSIDE RECORDS SUMMARY | 2018-04-28 12:02 | XMS REPORT ---
Author Author Estuardo Waldrop [facility] eClinicalWorks Address Unknown Phone Unavailable Care Team Providers Care Agriculture Scientist Name Role Phone Estaurdo Waldrop Unavailable Allergies No Known Allergies Problems Problem Type Condition ICD-9 Code Onset Dates Condition Status Problem Wheezing 786.07 Active Problem Hyperlipidemia NOS 272.4 Active Problem Diabetes mellitus 250.00 Active Problem Depression with anxiety 300.4 Active Medications No Known Medications Results No Known Results Summary Purpose eClinicalWorks Submission
--- OUTSIDE RECORDS SUMMARY | 2018-04-28 12:02 | XMS REPORT ---
Author Author Estuardo Waldrop [facility] Spec Address [address] [place] [address] Care Team Providers Care Cargo Supervisor Name Role Phone Estuardo Waldrop Unavailable PROBLEMS Type Condition ICD9-CM Code [id number] Code Onset Dates Condition Status SNOMED Code Problem Osteoarthritis of both knees M17.0 Active 190712585 Problem Depression with anxiety F41.8 Active 463951715 Problem Surgical menopause N95.8 Active 767153725 Problem Depression with anxiety 300.4 Active 295965083 Problem Hyperlipidemia NOS 272.4 Active 88431018 Problem Wheezing 786.07 Active 95433237 Problem Diabetes mellitus 250.00 Active 36149551 Problem Anxiety F41.9 Active 93175887 Problem Essential hypertension I10 Active 30439872 Problem Hyperlipidemia LDL goal <70 E78.5 Active 28395837 Problem BMI 50.0-59.9, adult Z68.43 Active 787504637 Problem Severe single current episode of major depressive disorder, 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
--- OUTSIDE RECORDS SUMMARY | 2018-04-28 12:02 | XMS REPORT ---
Author Author Estuardo Waldrop [facility] Spec Address [address] [place] [address] Care Team Providers Care Chief Operating Engineer Name Role Phone Estuardo Waldrop Unavailable PROBLEMS Type Condition ICD9-CM Code [id number] Code Onset Dates Condition Status SNOMED Code Problem Osteoarthritis of both knees M17.0 Active 813295028 Problem Depression with anxiety F41.8 Active 237699195 Problem Surgical menopause N95.8 Active 099428851 Problem Depression with anxiety 300.4 Active 512849297 Problem Hyperlipidemia NOS 272.4 Active 41783879 Problem Wheezing 786.07 Active 89112748 Problem Diabetes mellitus 250.00 Active 22760662 Problem Anxiety F41.9 Active 96393924 Problem Essential hypertension I10 Active 74054374 Problem Hyperlipidemia LDL goal <70 E78.5 Active 98807924 Problem BMI 50.0-59.9, adult Z68.43 Active 398642889 Problem Severe single current episode of major depressive disorder, without psychotic features F32.2 Active 54351260 Problem Type 2 diabetes mellitus without complications E11.9 Active 20132014 ALLERGIES No Information SOCIAL HISTORY Never Assessed [...]
--- OUTSIDE RECORDS SUMMARY | 2018-04-28 12:02 | XMS REPORT ---
Author Author Estuardo Waldrop Organization [facility] Spec Address [address] [place] [address] Care Team Providers Care Bottom Pounder [employer] Name Role Phone Estuardo Waldrop Unavailable PROBLEMS Type Condition ICD9-CM Code ATU81-UY Code Onset Dates Condition Status SNOMED Code Problem Osteoarthritis of both knees M17.0 Active 968041057 Problem Depression with anxiety F41.8 Active 709249969 Problem Surgical menopause N95.8 Active 576153334 Problem Depression with anxiety 300.4 Active 331862321 Problem Hyperlipidemia NOS 272.4 Active 44132848 Problem Wheezing 786.07 Active 74053972 Problem Diabetes mellitus 250.00 Active 28787872 Problem Anxiety F41.9 Active 53464404 Problem Essential hypertension I10 Active 20216287 Problem Hyperlipidemia LDL goal <70 E78.5 Active 97862091 Problem BMI 50.0-59.9, adult Z68.43 Active 363301799 Problem Severe single current episode of major depressive disorder, 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
--- OUTSIDE RECORDS SUMMARY | 2018-04-28 12:03 | XMS REPORT | Continuity of Care Document ---
Author Author [facility] Organization [facility] Address Unknown Phone Unavailable Allergies Active Description Code Type Severity Reaction Onset Reported/Identified Relationship to Patient Clinical Status Yes aspirin aspirin Drug Allergy Unknown SOB HIVES 09/04/2010 Yes morphine morphine Drug Allergy Unknown SOB, HIVES 09/04/2010 Yes Penicillins Penicillins Drug Allergy Unknown N/A 09/04/2010 Yes aspirin aspirin Drug Allergy Unknown SOB HIVES 09/04/2010 Yes morphine morphine Drug Allergy Unknown SOB, HIVES 09/04/2010 Yes Penicillins Penicillins Drug Allergy Unknown N/A 09/04/2010 Yes Aspirin Drug Allergy N/A Adverse Reaction 02/24/2011 Yes Compazine Drug Allergy N/A Adverse Reaction 02/24/2011 Yes Lortab Drug Allergy N/A Adverse Reaction 02/24/2011 Yes Penicillins Drug Allergy N/A Adverse Reaction 02/24/2011 Yes prochlorperazine edisylate prochlorperazine edisylate Drug Allergy Unknown ANXIOUS 09/09/2012 Yes prochlorperazine maleate prochlorperazine maleate Drug Allergy Unknown ANXIOUS 09/09/2012 Yes prochlorperazine edisylate prochlorperazine edisylate Drug Allergy Unknown ANXIOUS 09/09/2012 Yes prochlorperazine maleate prochlorperazine maleate Drug Allergy Unknown ANXIOUS 09/09/2012 Yes acetaminophen-HYDROcodone NKMA N/A Adverse Reaction 02/05/2014 Yes aspirin NKMA N/A Adverse Reaction 02/05/2014 Yes nabumetone NKMA N/A Adverse Reaction 02/05/2014 Yes penicillin NKMA N/A Adverse Reaction 02/05/2014 Yes Compazine NKMA N/A N/A 07/18/2016 Yes morphine NKMA N/A N/A 07/18/2016 Yes Reglan NKMA N/A N/ A 07/18/2016 Medications Medication Packaging Start Date Stop Date Route Dosage Sig HYDROcodone-acetaminophen([place] 5 mg-325 mg oral tablet) 1 tabs 07/18/2016 07/23/2016 Oral 1 tabs, Oral, q6hr, for 5 days, PRN: as needed for pain, 12 tabs, 0 Refill(s) cyclobenzaprine(cyclobenzaprine 10 mg oral tablet) 1 tabs 07/18/2016 07/23/2016 Oral 10 mg 10 mg=1 tabs, Oral, TID, for 5 days, PRN: as needed for spasm, 15 tabs, 0 Refill(s) ibuprofen(ibuprofen 800 mg oral tablet) 1 tabs 07/18/2016 07/25/2016 Oral 800 mg 800 mg=1 tabs, Oral, q8hr, for 7 days, PRN: as needed for pain, 21 tabs, 0 Refill(s) ketorolac(Toradol) 1 mL 02/14/2018 02/14/2018 IV Push 30 mg 30 mg=1 mL, IV Push, Once HYDROmorphone(Dilaudid) 1 mL 201702/14/2018 IV Push 1 mg 1 mg=1 mL, IV Push, Once albuterol(Ventolin HFA 90 mcg/inh inhalation aerosol) 2 puffs 02/14/2018 Inhalation 2 puffs, Inhalation, QID, PRN: as needed for wheezing, 0 Refill(s) traZODone(traZODone 50 mg oral tablet) 1 tabs 02/14/2018 Oral 50 mg 50 mg=1 tabs, Oral, Daily, PRN: Anxiety, 0 Refill(s) ondansetron(Zofran) 2 mL 201702/15/2018 IV Push 4 mg 4 mg=2 mL, IV Push, q6hr, PRN: Nausea Al hydroxide/Mg hydroxide/simethicone(Maalox Advanced Maximum Strength oral suspension) 30 mL 02/14/2018 02/15/2018 Oral 30 mL, Oral, q6hr, PRN: GERD/Heartburn calcium carbonate(Tums) 1 tabs 06/201802/15/2018 Oral 500 mg 500 mg=1 tabs, Oral, q4hr, PRN: GERD/Heartburn nicotine(Habitrol 14 mg/24 hr transdermal film, extended release) 1 patches 02/14/2018 02/15/2018 TransDermal 1 patches, TransDermal, Daily diphenhydrAMINE(Benadryl) 1 tabs 02/15/2018 Oral 25 mg 25 mg=1 tabs, Oral, q6hr, PRN: Pruritus/Itching acetaminophen(acetaminophen) 2 tabs 02/14/2018 02/15/2018 Oral 650 mg 650 mg=2 tabs, Oral, q4hr, PRN: Other (See Comment) nitroglycerin(nitroglycerin) 1 tabs 02/14/2018 02/15/2018 SubLingual 0.4 mg 0.4 mg=1 tabs, SubLingual, q5min, PRN: Angina/Chest Pain cyclobenzaprine(cyclobenzaprine) 1 tabs 02/14/2018 02/15/2018 Oral 5 mg 5 mg=1 tabs, Oral, TID acetaminophen(acetaminophen) 2 tabs 02/14/2018 02/15/2018 Oral 1,000 mg 1,000 mg=2 tabs, Oral, q6hr, PRN: Pain Mild (1-3) lisinopril(lisinopril) 1 tabs 02/1402/15/2018 Oral 5 mg 5 mg=1 tabs, Oral, Daily potassium chloride(potassium chloride 20 mEq oral tablet, extended release) 2 tabs 02/15/20182017 Oral 40 mEq 40 mEq=2 tabs, Oral, Once cyclobenzaprine(cyclobenzaprine 5 mg oral tablet) 1 tabs 02/15/2018 02/20/2018 Oral 5 mg 5 mg=1 tabs, Oral, TID, for 5 days, PRN: Muscle Spasm, 10 tabs, 0 Refill(s) lisinopril(lisinopril 5 mg oral tablet) 1 tabs 02/15/2018 03/17/2018 Oral 5 mg 5 mg=1 tabs, Oral, Daily, for 30 days, 30 tabs, 0 Refill(s) atorvastatin(atorvastatin 40 mg oral tablet) 1 tabs 02/15/2018 Oral 40 mg 40 mg=1 tabs, Oral, Daily, 30 tabs, 0 Refill(s) Problems Date Dx Coded Attending Type Code Diagnosis Diagnosed By 02/16/2013 Angela SAEED, Duran Final 250.00 DM2/NOS UNCOMP NSU 02/16/2013 Duran Miller MD Final 278.00 OBESITY NOS 02/16/2013 Duran Miller MD Final 305.1 TOBACCO USE DISORDER 02/16/2013 Duran Miller MD Final 518.89 OTHER LUNG DISEASE NEC 02/16/2013 Duran Miller MD 780.79 MALAISE FATIGUE NEC 02/16/2013 Duran Miller MD Admitting 786.05 SHORTNESS OF BREATH 02/16/2013 Duran Miller MD Final 786.09 RESP ABNORMALITY NEC 06/04/2013 Duran Miller MD Final 719.46 JOINT PAIN-LOWER LEG 06/04/2013 Duran Miller MD Admitting 959.7 LOWER LEG INJURY NEC 06/04/2013 Duran Miller MD External E888.8 FALL NEC 06/04/2013 Duran Miller MD Final V43.65 KNEE REPLACEMENT STATUS 07/20/2016 Wagner Bowen Final F17.200 Nicotine dependence, unspecified, uncomplicated 07/20/2016 Wagner Bowen Reason M54.5 Low back pain 07/20/2016 Wagner Bowen Final S39.012A Strain of muscle, fascia and tendon of lower back, initial encounter 07/20/2016 Wagner Bowen Final W01.190A Fall on same level from slipping, tripping and stumbling with subsequent st 07/20/2016 Wagner Bowen Final Y92.[address] in unspecified non-institutional (private) residence as t 04/29/2017 W E11.9 Type 2 diabetes mellitus without complications 04/29/2017 W H52.13 Myopia, bilateral 04/29/2017 W H52.223 Regular astigmatism, bilateral 04/29/2017 W H52.4 Presbyopia 05/08/2017 W E11.9 Type 2 diabetes mellitus without complications 05/08/2017 W H52.13 Myopia, bilateral 05/08/2017 W H52.223 Regular astigmatism, bilateral 05/08/2017 W H52.4 Presbyopia 05/09/2017 W E11.9 Type 2 diabetes mellitus without complications 05/09/2017 W H52.13 Myopia, bilateral 05/09/2017 W H52.223 Regular astigmatism, bilateral 05/09/2017 W H52.4 Presbyopia 02/20/2018 Young Armendariz Final E11.9 Type 2 diabetes mellitus without complications 02/20/2018 Young Armendariz Adrien Final E78.5 Hyperlipidemia, unspecified 02/20/2018 Young Armendariz Adrien Final E87.6 Hypokalemia 02/20/2018 Armendariz Young Jurado Final I10 Essential (primary) hypertension 02/20/2018 Young Armendariz Adrien Final R07.89 Other chest pain 02/20/2018 Young Armendariz Adrien Final Z87.891 Personal history of nicotine dependence Procedures Code Description Performed By Performed On Void Charge Void 04/29/2017 89726 EYE EXAM, NEW PATIENT 04/29/2017 06021 REFRACTION 04/29/2017 V2020 Vision svcs frames purchases 04/29/2017 V2100 Lens spher single plano 4.00 04/29/2017 V2103 Spherocylindr 4.00d/12- 2.00d 04/29/2017 V2750 Anti-reflective coating 04/29/2017 V2782 Lens, 1.54-1.65 p/1.60- 1.79g 04/29/2017 V0025 Protection Plan Level 2 03/15/2018 V2020 Vision svcs frames purchases 03/15/2018 V2100 Lens spher single plano 4.00 03/15/2018 V2103 Spherocylindr 4.00d/12- 2.00d 03/15/2018 V2782 Lens, 1.54-1.65 p/1.60- 1.79g 03/15/2018 <section xmlns="urn:hl7-org:v3" xmlns:xsi= "http://www.3.org/2001/XMLSchema-instance"> <templateId root= "[id number]" /> <templateId root= "[id number]" /> <code codeSystemName="LOINC" codeSystem= "[id number]" code="42195-5" displayName="Results" /> <title>Results< /title> <text> <table> <thead> <tr> <th>Test</th> <th>Result</th> <th>Range</th> </tr> </thead> < tbody> <tr> <th colspan="10">STREP THROAT SCREEN (GROUP A) - STREP THROAT CULTURE (GROUP A) - 09/09/12 15:55</th> </tr> <tr> <td>Uncategorized</td> <td> </td> <td /> </tr> <tr> <th colspan="10">TROPONIN I BEDSIDE - 05/25/13 02:55</th> </tr> <tr> <td>METHOD</td> <td>Bedside </td> <td /> </tr> <tr> <td>TROPONIN I</td> < td>< 0.04 ng/mL</td> <td>< 0.11</td> </tr> <tr> <th colspan="10">D-DIMER QUANT - 11/08/15 20:25</th> </tr> <tr> <td>D-DIMER QUANT</td> <td>< 150 ng/mL</td> < td>0-229</td> </tr> <tr> <th colspan="10">CBC W/DIFF - 20:25</th> </tr> <tr> <td>BASOPHIL #</td> <td>0.0 k/cumm</td> <td>0.0-0.2</td> </tr> <tr> <td>BASOPHIL %</td> <td>1 %</td> <td>0-1</td> </tr> <tr> <td>EOSINOPHIL #</td> <td>0.1 k/cumm</td > <td>0.1-0.5</td> </tr> <tr> <td>EOSINOPHIL &# 37;</td> <td>1 %</td> <td>2-4</td> </tr> <tr > <td>GRANULOCYTE #</td> <td>3.8 k/cumm</td> <td>2.0- 9.0</td> </tr> <tr> <td>GRANULOCYTE %</td> < td>50 %</td> <td>50-75</td> </tr> <tr> <td> LYMPHOCYTE #</td> <td>3.2 k/cumm</td> <td>1.0-4.0</td> </tr> <tr> <td>LYMPHOCYTE %</td> <td>43 %</td> <td>20-30</td> </tr> <tr> <td>MEAN CELL HGB</td > <td>28.3 pg</td> <td>27.0-33.0</td> </tr> <tr > <td>MEAN CELL HGB CONCENTRATION</td> <td>31.4 g/dL</td> <td>32.0-37.0</td> </tr> <tr> <td>MEAN CELL VOLUME< /td> <td>90.0 fl</td> <td>80.0-100.0</td> </tr> <tr> <td>MONOCYTE #</td> <td>0.4 k/cumm</td> <td>0.1- 1.0</td> </tr> <tr> <td>MONOCYTE %</td> <td> 5 %</td> <td>4-6</td> </tr> <tr> <td>RED BLOOD CELL</td> <td>4.42 m/cumm</td> <td>4.00-6.00</td> </tr> <tr> <td>RED CELL DISTRIBUTION WIDTH</td> <td> 13.1 %</td> <td>11.0-15.6</td> </tr> <tr> < td>WHITE BLOOD CELL</td> <td>7.6 k/cumm</td> <td>5.0-10.0</td > </tr> <tr> <td>HEMOGLOBIN</td> <td>12.5 gm/dL< /td> <td>12.0-16.0</td> </tr> <tr> <td> HEMATOCRIT</td> <td>39.8 %</td> <td>37.0-47.0</td> </tr> <tr> <td>PLATELET COUNT</td> <td>285 k/cumm</td> <td>150-450</td> </tr> <tr> <th colspan="10"> TROPONIN I BEDSIDE - 11/08/15 20:30</th> </tr> <tr> <td> METHOD</td> <td>Bedside </td> <td /> </tr> <tr> <td>TROPONIN I</td> <td>< 0.04 ng/mL</td> <td>&lt ; 0.11</td> </tr> <tr> <th colspan="10">CHEM/HEM PROFILE- BEDSIDE - 11/08/15 20:33</th> </tr> <tr> <td>POTASSIUM</ td> <td>3.7 mmol/L</td> <td>3.5-5.3</td> </tr> < tr> <td>METHOD</td> <td>Bedside </td> <td /> < /tr> <tr> <td>ANION GAP</td> <td>19 mmol/L</td> <td>10-20</td> </tr> <tr> <td>METHOD</td> <td >Bedside </td> <td /> </tr> <tr> <td>GLUCOSE</td > <td>204 mg/dL</td> <td>70-99</td> </tr> <tr> <td>BLOOD UREA NITROGEN</td> <td>9 mg/dL</td> <td>7- 20</td> </tr> <tr> <td>CREATININE</td> <td>0.7 mg/dL</td> <td>0.6-1.0</td> </tr> <tr> <td> HEMOGLOBIN</td> <td>13.6 gm/dL</td> <td>12.0-16.0</td> </tr> <tr> <td>HEMATOCRIT</td> <td>40.0 %</td> <td>37.0-47.0</td> </tr> <tr> <td>SODIUM</td> <td>142 mmol/L</td> <td>135-148</td> </tr> <tr> <td>CHLORIDE</td> <td>100 mmol/L</td> <td>98-110</td> </tr> <tr> <td>CARBON DIOXIDE</td> <td>28 mmol/L< /td> <td>21-32</td> </tr> <tr> <td>CALCIUM IONIZED</td> <td>4.7 mg/dL</td> <td>4.5-5.3</td> </tr> <tr> <th colspan="10">TROPONIN I BEDSIDE - 11/08/15 22:17</th> </tr> <tr> <td>METHOD</td> <td>Bedside </td> <td /> </tr> <tr> <td>TROPONIN I</td> < td>< 0.04 ng/mL</td> <td>< 0.11</td> </tr> <tr> <th colspan="10">STREP THROAT SCREEN (GROUP A) - STREP THROAT CULTURE ( GROUP A) - 09/09/17 16:55</th> </tr> <tr> <td> Microbiology</td> <td> </td> <td /> </tr> <tr> <th colspan="10">CBC With Platelet and Differential - 02/14/18 16:03</ th> </tr> <tr> <td>Absolute Basophils</td> <td> 0.01 10*3/uL</td> <td>0.00-0.20</td> </tr> <tr> <td>Absolute Eosinophils</td> <td>0.08 10*3/uL</td> <td>0.00- 0.50</td> </tr> <tr> <td>Absolute Lymphocytes</td> <td>2.68 10*3/uL</td> <td>0.80-3.30</td> </tr> <tr> <td>Absolute Monocytes</td> <td>0.27 10*3/uL</td> <td >0.30-1.00</td> </tr> <tr> <td>Absolute Neutrophils</td> <td>3.81 10*3/uL</td> <td>1.90-7.00</td> </tr> <tr> <td>Basophils</td> <td>0 %</td> <td>0-2</td > </tr> <tr> <td>Eosinophils</td> <td>1 %</ td> <td>0-4</td> </tr> <tr> <td>HCT</td> <td>38.3 %</td> <td>37.0-47.0</td> </tr> <tr> <td>HGB</td> <td>12.3 g/dL</td> <td>12.0-16.0</td> </tr> <tr> <td>Immature Granulocytes</td> <td>0.1 &# 37;</td> <td>0.0-1.0</td> </tr> <tr> <td> Lymphocytes</td> <td>39 %</td> <td>20-46</td> </tr > <tr> <td>MCH</td> <td>28.4 pg</td> <td>27.0- 32.0</td> </tr> <tr> <td>MCHC</td> <td>32.1 g/dL </td> <td>32.0-36.0</td> </tr> <tr> <td>MCV</td > <td>88.5 fL</td> <td>82.0-99.0</td> </tr> <tr > <td>Monocytes</td> <td>4 %</td> <td>4-11</td> </tr> <tr> <td>MPV</td> <td>9.7 fL</td> <td>9.4-12.4</td> </tr> <tr> <td>Neutrophils</td> <td>56 %</td> <td>51-75</td> </tr> <tr> <td>Nucleated RBC Automated</td> <td>0.0 /100 WBC</td> <td / > </tr> <tr> <td>Platelet Count</td> <td>272 K/ uL</td> <td>150-400</td> </tr> <tr> <td>RBC</td > <td>4.33 10*6/uL</td> <td>4.00-5.20</td> </tr> <tr> <td>RDW</td> <td>13.3 %</td> <td>11.5-14.5 </td> </tr> <tr> <td>WBC</td> <td>6.9 K/uL</td> <td>4.8-10.8</td> </tr> <tr> <th colspan="10"> Troponin - 02/14/18 16:03</th> </tr> <tr> <td>Troponin</ td> <td><0.05 ng/mL</td> <td><0.06</td> </tr> <tr> <th colspan="10">Comprehensive Metabolic Panel (CMP) - 16:03</th> </tr> <tr> <td>Albumin</td> <td> 4.0 g/dL</td> <td>3.5-4.8</td> </tr> <tr> <td> Alkaline Phosphatase</td> <td>83 U/L</td> <td>26-104</td> </tr> <tr> <td>ALT (SGPT)</td> <td>14 U/L</td> <td>14-54</td> </tr> <tr> <td>Anion Gap</td> <td>9 mEq/L</td> <td>3-20</td> </tr> <tr> < td>AST (SGOT)</td> <td>16 U/L</td> <td>15-41</td> </tr > <tr> <td>Bilirubin Total</td> <td>0.8 mg/dL</td> <td>0.2-1.2</td> </tr> <tr> <td>BUN</td> < td>5 mg/dL</td> <td>4-20</td> </tr> <tr> <td> Calcium</td> <td>9.3 mg/dL</td> <td>8.6-10.0</td> </tr > <tr> <td>Chloride</td> <td>103 mEq/L</td> < td>99-109</td> </tr> <tr> <td>CO2</td> <td>25 mEq/L</td> <td>22-32</td> </tr> <tr> <td> Creatinine</td> <td>0.54 mg/dL</td> <td>0.44-1.03</td> </tr> <tr> <td>Globulin</td> <td>3.6 g/dL</td> <td>1.9-4.3</td> </tr> <tr> <td>Glucose</td> < td>99 mg/dL</td> <td>70-100</td> </tr> <tr> <td> Potassium</td> <td>3.3 mEq/L</td> <td>3.6-5.1</td> </tr > <tr> <td>Protein</td> <td>7.6 g/dL</td> <td> 6.1-7.9</td> </tr> <tr> <td>Sodium</td> <td>137 mEq/L</td> <td>136-144</td> </tr> <tr> <th colspan="10">eGFR - 02/14/18 16:03</th> </tr> <tr> <td> eGFR</td> <td>>60 mL/min</td> <td>>60</td> </tr> <tr> <th colspan="10">TSH - 02/14/18 16:03</th> </tr> <tr> <td>TSH</td> <td>1.30 uIU/mL</td> <td>0.35 -5.50</td> </tr> <tr> <th colspan="10">Lipid Panel - 06/26 16:03</th> </tr> <tr> <td>Cardiac Risk</td> <td>7.7 </td> <td>0.0-5.0</td> </tr> <tr> <td >Cholesterol</td> <td>292 mg/dL</td> <td>0-199</td> </ tr> <tr> <td>HDL Cholesterol</td> <td>38 mg/dL</td> <td>40-84</td> </tr> <tr> <td>LDL Cholesterol</td > <td>199 mg/dL</td> <td>0-130</td> </tr> <tr> <td>Triglycerides</td> <td>275 mg/dL</td> <td>0-149</ td> </tr> <tr> <td>VLDL Cholesterol</td> <td>55 mg/dL</td> <td>0-28</td> </tr> <tr> <th colspan= "10">Hemoglobin A1C - 02/14/18 16:03</th> </tr> <tr> <td> Hemoglobin A1C</td> <td>6.6 %</td> <td>4.1-5.6</td> </tr> <tr> <th colspan="10">Estimated Average Glucose - 16:03</th> </tr> <tr> <td>Estimated Average Glucose</ td> <td>142.7 mg/dL</td> <td /> </tr> <tr> <th colspan="10">Troponin - 02/14/18 23:10</th> </tr> <tr> <td>Troponin</td> <td><0.05 ng/mL</td> <td><0.06 </td> </tr> <tr> <th colspan="10">Troponin - 02/15/18 01: 46</th> </tr> <tr> <td>Troponin</td> <td>< 0.05 ng/mL</td> <td><0.06</td> </tr> <tr> < th colspan="10">CBC With Platelet No Differential - 02/15/18 04:28</th> < /tr> <tr> <td>HCT</td> <td>37.2 %</td> <td >37.0-47.0</td> </tr> <tr> <td>HGB</td> <td> 11.6 g/dL</td> <td>12.0-16.0</td> </tr> <tr> <td >MCH</td> <td>28.2 pg</td> <td>27.0-32.0</td> </tr> <tr> <td>MCHC</td> <td>31.2 g/dL</td> <td>32.0- 36.0</td> </tr> <tr> <td>MCV</td> <td>90.5 fL</ td> <td>82.0-99.0</td> </tr> <tr> <td>MPV</td> <td>9.8 fL</td> <td>9.4-12.4</td> </tr> <tr> <td>Platelet Count</td> <td>254 K/uL</td> <td>150-400</ td> </tr> <tr> <td>RBC</td> <td>4.11 10*6/uL</td > <td>4.00-5.20</td> </tr> <tr> <td>RDW</td> <td>13.6 %</td> <td>11.5-14.5</td> </tr> <tr> <td>WBC</td> <td>6.3 K/uL</td> <td>4.8-10.8</td> </tr> <tr> < colspan="10">Renal Function Panel - 04:28</th> </tr> <tr> <td>Albumin</td> <td> 3.7 g/dL</td> <td>3.5-4.8</td> </tr> <tr> <td> Anion Gap</td> <td>8 mEq/L</td> <td>3-20</td> </tr> <tr> <td>BUN</td> <td>9 mg/dL</td> <td>4-20</td > </tr> <tr> <td>Calcium</td> <td>9.0 mg/dL</td > <td>8.6-10.0</td> </tr> <tr> <td>Chloride</td > <td>106 mEq/L</td> <td>99-109</td> </tr> <tr> <td>CO2</td> <td>27 mEq/L</td> <td>22-32</td> </tr> <tr> <td>Creatinine</td> <td>0.68 mg/dL</td> <td>0.44-1.03</td> </tr> <tr> <td>Glucose</td> <td>121 mg/dL</td> <td>70-100</td> </tr> <tr> <td>Phosphorus</td> <td>5.5 mg/dL</td> <td>2.4-4.7</td > </tr> <tr> <td>Potassium</td> <td>3.3 mEq/L</ td> <td>3.6-5.1</td> </tr> <tr> <td>Sodium</td> <td>141 mEq/L</td> <td>136-144</td> </tr> <tr> <th colspan="10">eGFR - 02/15/18 04:28</th> </tr> <tr> <td>eGFR</td> <td>>60 mL/min</td> <td>>60</td> </tr> </tbody> </table> </text> <entry> <organizer moodCode ="EVN" classCode="BATTERY"> <templateId root= "[id number]...4.1" /> <id nullFlavor="NA" /> <code codeSystem="local" code="STREPA" displayName="STREP THROAT SCREEN (GROUP A) - STREP THROAT CULTURE (GROUP A)" /> <statusCode code="completed" /> < component> <observation moodCode="EVN" classCode="OBS"> < templateId root="[id number]..22.4.2" /> <id nullFlavor="NA " /> <code codeSystem="local" code="UNC" displayName="Uncategorized" / > <statusCode code="completed" /> <effectiveTime value= "[id number]" /> <value xsi:type="ST" value="<pre><b>STREP THROAT SCREEN (GROUP A) - STREP THROAT CULTURE (GROUP A)</b> See BelowSTREP THROAT SCREEN (GROUP A)(F) Vero Date/Time: 09/09/2012 15:55 Cj Date/Time: 09/11/2012 13:10SOURCE: THROATSPEC DESC: [facility] [id number] [address] [address] BelowSTREP THROAT CULTURE (GROUP A)(F) Vero Date/Time: 09/09/2012 15: 55 Cj Date/Time: 09/11/2012 13:10SOURCE: THROATSPEC DESC: NO GROUP A STREPTOCOCCUS ISOLATEDOrganism #1 STREP AGALACTIAE ( GROUP B)QUANTITATION .[facility] - [phone] [place] [address]</pre>" /> <referenceRange> < observationRange> <text /> </observationRange> </referenceRange> </observation> </component> </organizer> </ entry> <entry> <organizer moodCode="EVN" classCode="BATTERY"> < templateId root="[id number]..22.4.1" /> <id nullFlavor="NA" /> <code codeSystem="local" code="iTROPI" displayName="TROPONIN I BEDSIDE" / > <statusCode code="completed" /> <component> <observation moodCode="EVN" classCode="OBS"> <templateId root= "[id number]..22.4.2" /> <id nullFlavor="NA" /> < code codeSystem="local" code="CMETHOD" displayName="METHOD" /> < statusCode code="completed" /> <effectiveTime value="[id number]" /> <value unit="" xsi:type="PQ" value="Bedside" /> < referenceRange> <observationRange> <text /> < /observationRange> </referenceRange> </observation> </ component> <component> <observation moodCode="EVN" classCode="OBS"> <templateId root="[id number].2" /> <id nullFlavor="NA" /> <code codeSystem="local" code="TROPI" displayName= "TROPONIN I" /> <statusCode code="completed" /> < effectiveTime value="[id number]" /> <value unit="ng/mL" xsi:type="PQ " value="< 0.04" /> <referenceRange> <observationRange> <text>< 0.11</text> </observationRange> </ referenceRange> </observation> </component> </organizer> </entry > <entry> <organizer moodCode="EVN" classCode="BATTERY"> <templateId root="16.840.1.593415.10..22.4.1" /> <id nullFlavor="NA" /> <code codeSystem="local" code="DIMER" displayName="D-DIMER QUANT" /> <statusCode code="completed" /> <component> <observation moodCode="EVN" classCode="OBS"> <templateId root="16.840.1.044987.10.20.22.4.2" /> <id nullFlavor="NA" /> <code codeSystem="local" code="DIMER" displayName="D-DIMER QUANT" /> <statusCode code="completed" /> <effectiveTime value="538383830515" /> <value unit="ng/mL" xsi:type= "PQ" value="< 150" /> <referenceRange> <observationRange > <text>0-229</text> </observationRange> </ referenceRange> </observation> </component> </organizer> </entry > <entry> <organizer moodCode="EVN" classCode="BATTERY"> <templateId root="216.840.1.580054.10...4.1" /> <id nullFlavor="NA" /> <code codeSystem="local" code="CBCD" displayName="CBC W/DIFF" /> <statusCode code ="completed" /> <component> <observation moodCode="EVN" classCode= "OBS"> <templateId root="2.16.840.1.105294...4.2" /> < id nullFlavor="NA" /> <code codeSystem="local" code="BA#" displayName= "BASOPHIL #" /> <statusCode code="completed" /> < effectiveTime value="[id number]" /> <value unit="k/cumm" xsi:type="PQ " value="0.0" /> <referenceRange> <observationRange> <text>0.0-0.2</text> </observationRange> </ referenceRange> </observation> </component> <component> <observation moodCode="EVN" classCode="OBS"> <templateId root= "216.840.1.110836...4.2" /> <id nullFlavor="NA" /> < code codeSystem="local" code="BA%" displayName="BASOPHIL %" /> <statusCode code="completed" /> <effectiveTime value="007567241439" /> <value unit="%" xsi:type="PQ" value="1" /> < referenceRange> <observationRange> <text>0-1</text> </observationRange> </referenceRange> </observation> </component> <component> <observation moodCode="EVN" classCode= "OBS"> <templateId root="11.24.840.1.023298.07.28.22.4.2" /> < id nullFlavor="NA" /> <code codeSystem="local" code="EO#" displayName= "EOSINOPHIL #" /> <statusCode code="completed" /> < effectiveTime value="426059015943" /> <value unit="k/cumm" xsi:type="PQ " value="0.1" /> <referenceRange> <observationRange> <text>0.1-0.5</text> </observationRange> </ referenceRange> </observation> </component> <component> <observation moodCode="EVN" classCode="OBS"> <templateId root= "11.24.840.1.879908.07.28.22.4.2" /> <id nullFlavor="NA" /> < code codeSystem="local" code="EO%" displayName="EOSINOPHIL %" /> <statusCode code="completed" /> <effectiveTime value="473420833065" /> <value unit="%" xsi:type="PQ" value="1" /> < interpretationCode codeSystem="local" code="*" /> <referenceRange> <observationRange> <text>2-4</text> </ observationRange> </referenceRange> </observation> </ component> <component> <observation moodCode="EVN" classCode="OBS"> <templateId root="11.24.840.1.714444.07.28.22.4.2" /> <id nullFlavor="NA" /> <code codeSystem="local" code="GR#" displayName= "GRANULOCYTE #" /> <statusCode code="completed" /> < effectiveTime value="487772194600" /> <value unit="k/cumm" xsi:type="PQ " value="3.8" /> <referenceRange> <observationRange> <text>2.0-9.0</text> </observationRange> </ referenceRange> </observation> </component> <component> <observation moodCode="EVN" classCode="OBS"> <templateId root= "216.840.1.484631.10..22.4.2" /> <id nullFlavor="NA" /> < code codeSystem="local" code="GR%" displayName="GRANULOCYTE %" /> <statusCode code="completed" /> <effectiveTime value="[id number] " /> <value unit="%" xsi:type="PQ" value="50" /> < referenceRange> <observationRange> <text>50-75</text> </observationRange> </referenceRange> </observation> </component> <component> <observation moodCode="EVN" classCode= "OBS"> <templateId root="11.24.840.1.848642.10...4.2" /> < id nullFlavor="NA" /> <code codeSystem="local" code="LY#" displayName= "LYMPHOCYTE #" /> <statusCode code="completed" /> < effectiveTime value="858650020004" /> <value unit="k/cumm" xsi:type="PQ " value="3.2" /> <referenceRange> <observationRange> <text>1.0-4.0</text> </observationRange> </ referenceRange> </observation> </component> <component> <observation moodCode="EVN" classCode="OBS"> <templateId root= "16.840.1.643657.10.20.22.4.2" /> <id nullFlavor="NA" /> < code codeSystem="local" code="LY%" displayName="LYMPHOCYTE %" /> <statusCode code="completed" /> <effectiveTime value="523110227858" /> <value unit="%" xsi:type="PQ" value="43" /> < interpretationCode codeSystem="local" code="*" /> <referenceRange> <observationRange> <text>20-30</text> </ observationRange> </referenceRange> </observation> </ component> <component> <observation moodCode="EVN" classCode="OBS"> <templateId root="2.16.840.1.628576.10..4.2" /> <id nullFlavor="NA" /> <code codeSystem="local" code="MCH" displayName= "MEAN CELL HGB" /> <statusCode code="completed" /> < effectiveTime value="[id number]" /> <value unit="pg" xsi:type="PQ" value="28.3" /> <referenceRange> <observationRange> <text>27.0-33.0</text> </observationRange> </ referenceRange> </observation> </component> <component> <observation moodCode="EVN" classCode="OBS"> <templateId root= "2.16.840.1.469311.07.28.22.4.2" /> <id nullFlavor="NA" /> < code codeSystem="local" code="MCHC" displayName="MEAN CELL HGB CONCENTRATION" / > <statusCode code="completed" /> <effectiveTime value= "399094240166" /> <value unit="g/dL" xsi:type="PQ" value="31.4" /> <interpretationCode codeSystem="local" code="*" /> < referenceRange> <observationRange> <text>32.0-37.0</text > </observationRange> </referenceRange> </observation > </component> <component> <observation moodCode="EVN" classCode="OBS"> <templateId root="216.840.1.616584.07.28.22.4.2" /> <id nullFlavor="NA" /> <code codeSystem="local" code="MCV" displayName="MEAN CELL VOLUME" /> <statusCode code="completed" /> <effectiveTime value="087549865267" /> <value unit="fl" xsi:type= "PQ" value="90.0" /> <referenceRange> <observationRange> <text>80.0-100.0</text> </observationRange> </ referenceRange> </observation> </component> <component> <observation moodCode="EVN" classCode="OBS"> <templateId root= "11.24.840.1.452698.07.28.22.4.2" /> <id nullFlavor="NA" /> < code codeSystem="local" code="MO#" displayName="MONOCYTE #" /> < statusCode code="completed" /> <effectiveTime value="503058385047" /> <value unit="k/cumm" xsi:type="PQ" value="0.4" /> < referenceRange> <observationRange> <text>0.1-1.0</text> </observationRange> </referenceRange> </observation > </component> <component> <observation moodCode="EVN" classCode="OBS"> <templateId root="11.24.840.1.478828.07.28.22.4.2" /> <id nullFlavor="NA" /> <code codeSystem="local" code="MO% " displayName="MONOCYTE %" /> <statusCode code="completed" /> <effectiveTime value="547624270665" /> <value unit="%" xsi: type="PQ" value="5" /> <referenceRange> <observationRange> <text>4-6</text> </observationRange> </ referenceRange> </observation> </component> <component> <observation moodCode="EVN" classCode="OBS"> <templateId root= "2.16.840.1.767508.10..22.4.2" /> <id nullFlavor="NA" /> < code codeSystem="local" code="RBC" displayName="RED BLOOD CELL" /> < statusCode code="completed" /> <effectiveTime value="200904761029" /> <value unit="m/cumm" xsi:type="PQ" value="4.42" /> < referenceRange> <observationRange> <text>4.00-6.00</text > </observationRange> </referenceRange> </observation > </component> <component> <observation moodCode="EVN" classCode="OBS"> <templateId root="216.840.1.647495.10...4.2" /> <id nullFlavor="NA" /> <code codeSystem="local" code="RDW" displayName="RED CELL DISTRIBUTION WIDTH" /> <statusCode code= "completed" /> <effectiveTime value="781896652422" /> <value unit="%" xsi:type="PQ" value="13.1" /> <referenceRange> <observationRange> <text>11.0-15.6</text> </ observationRange> </referenceRange> </observation> </ component> <component> <observation moodCode="EVN" classCode="OBS"> <templateId root="216.840.1.192544.10..22.4.2" /> <id nullFlavor="NA" /> <code codeSystem="local" code="WBC" displayName= "WHITE BLOOD CELL" /> <statusCode code="completed" /> < effectiveTime value="101006527645" /> <value unit="k/cumm" xsi:type="PQ " value="7.6" /> <referenceRange> <observationRange> <text>5.0-10.0</text> </observationRange> </ referenceRange> </observation> </component> <component> <observation moodCode="EVN" classCode="OBS"> <templateId root= "216.840.1.026777.10.20.22.4.2" /> <id nullFlavor="NA" /> < code codeSystem="local" code="HGBT" displayName="HEMOGLOBIN" /> < statusCode code="completed" /> <effectiveTime value="823734611711" /> <value unit="gm/dL" xsi:type="PQ" value="12.5" /> < referenceRange> <observationRange> <text>12.0-16.0</text > </observationRange> </referenceRange> </observation > </component> <component> <observation moodCode="EVN" classCode="OBS"> <templateId root="2.16.840.1.034797.10.20.22.4.2" /> <id nullFlavor="NA" /> <code codeSystem="local" code="HCTT" displayName="HEMATOCRIT" /> <statusCode code="completed" /> < effectiveTime value="694071065339" /> <value unit="%" xsi:type="PQ " value="39.8" /> <referenceRange> <observationRange> <text>37.0-47.0</text> </observationRange> </ referenceRange> </observation> </component> <component> <observation moodCode="EVN" classCode="OBS"> <templateId root= "16.840.1.120617.10...4.2" /> <id nullFlavor="NA" /> < code codeSystem="local" code="PLT" displayName="PLATELET COUNT" /> < statusCode code="completed" /> <effectiveTime value="878627990796" /> <value unit="k/cumm" xsi:type="PQ" value="285" /> < referenceRange> <observationRange> <text>150-450</text> </observationRange> </referenceRange> </observation > </component> </organizer> </entry> <entry> <organizer moodCode= "EVN" classCode="BATTERY"> <templateId root="16.840.1.135226.10..22.4.1 " /> <id nullFlavor="NA" /> <code codeSystem="local" code="iTROPI" displayName="TROPONIN I BEDSIDE" /> <statusCode code="completed" /> < component> <observation moodCode="EVN" classCode="OBS"> < templateId root="11.24.840.1.875955...4.2" /> <id nullFlavor="NA " /> <code codeSystem="local" code="CMETHOD" displayName="METHOD" /> <statusCode code="completed" /> <effectiveTime value= "399172903942" /> <value unit="" xsi:type="PQ" value="Bedside" /> <referenceRange> <observationRange> <text /> </observationRange> </referenceRange> </observation> </component> <component> <observation moodCode="EVN" classCode="OBS "> <templateId root="11.24.840.1.832316.10..22.4.2" /> <id nullFlavor="NA" /> <code codeSystem="local" code="TROPI" displayName= "TROPONIN I" /> <statusCode code="completed" /> < effectiveTime value="265042310376" /> <value unit="ng/mL" xsi:type="PQ " value="< 0.04" /> <referenceRange> <observationRange> <text>< 0.11</text> </observationRange> </ referenceRange> </observation> </component> </organizer> </entry > <entry> <organizer moodCode="EVN" classCode="BATTERY"> <templateId root="216.840.1.446373.10..22.4.1" /> <id nullFlavor="NA" /> <code codeSystem="local" code="iCHEM8" displayName="CHEM/HEM PROFILE-BEDSIDE" /> <statusCode code="completed" /> <component> <observation moodCode= "EVN" classCode="OBS"> <templateId root="216.840.1.736748.10..22.4.2 " /> <id nullFlavor="NA" /> <code codeSystem="local" code="K" displayName="POTASSIUM" /> <statusCode code="completed" /> < effectiveTime value="226023104617" /> <value unit="mmol/L" xsi:type="PQ " value="3.7" /> <referenceRange> <observationRange> <text>3.5-5.3</text> </observationRange> </ referenceRange> </observation> </component> <component> <observation moodCode="EVN" classCode="OBS"> <templateId root= "16.840.1.793589.10..22.4.2" /> <id nullFlavor="NA" /> < code codeSystem="local" code="CMETHOD" displayName="METHOD" /> < statusCode code="completed" /> <effectiveTime value="" /> <value unit="" xsi:type="PQ" value="Bedside" /> < referenceRange> <observationRange> <text /> < /observationRange> </referenceRange> </observation> </ component> <component> <observation moodCode="EVN" classCode="OBS"> <templateId root="16.840.1.923952.07.28.22.4.2" /> <id nullFlavor="NA" /> <code codeSystem="local" code="GAP" displayName= "ANION GAP" /> <statusCode code="completed" /> <effectiveTime value="" /> <value unit="mmol/L" xsi:type="PQ" value="19" / > <referenceRange> <observationRange> <text>10- 20</text> </observationRange> </referenceRange> </ observation> </component> <component> <observation moodCode= "EVN" classCode="OBS"> <templateId root="11.24.840.1.217180.07.28.22.4.2 " /> <id nullFlavor="NA" /> <code codeSystem="local" code= "HMETHOD" displayName="METHOD" /> <statusCode code="completed" /> <effectiveTime value="" /> <value unit="" xsi:type="PQ " value="Bedside" /> <referenceRange> <observationRange> <text /> </observationRange> </referenceRange> </observation> </component> <component> <observation moodCode="EVN" classCode="OBS"> <templateId root= "11.24.840.1.774737.22.4.2" /> <id nullFlavor="NA" /> < code codeSystem="local" code="GLU" displayName="GLUCOSE" /> < statusCode code="completed" /> <effectiveTime value="" /> <value unit="mg/dL" xsi:type="PQ" value="204" /> < interpretationCode codeSystem="local" code="*" /> <referenceRange> <observationRange> <text>70-99</text> </ observationRange> </referenceRange> </observation> </ component> <component> <observation moodCode="EVN" classCode="OBS"> <templateId root="216.840.1.633668.10..22.4.2" /> <id nullFlavor="NA" /> <code codeSystem="local" code="BUN" displayName= "BLOOD UREA NITROGEN" /> <statusCode code="completed" /> < effectiveTime value="922326352113" /> <value unit="mg/dL" xsi:type="PQ " value="9" /> <referenceRange> <observationRange> <text>7-20</text> </observationRange> </referenceRange > </observation> </component> <component> <observation moodCode="EVN" classCode="OBS"> <templateId root= "216.840.1.981815.10.20.22.4.2" /> <id nullFlavor="NA" /> < code codeSystem="local" code="CREAT" displayName="CREATININE" /> < statusCode code="completed" /> <effectiveTime value="626349556268" /> <value unit="mg/dL" xsi:type="PQ" value="0.7" /> < referenceRange> <observationRange> <text>0.6-1.0</text> </observationRange> </referenceRange> </observation > </component> <component> <observation moodCode="EVN" classCode="OBS"> <templateId root="216.840.1.584459.22.4.2" /> <id nullFlavor="NA" /> <code codeSystem="local" code="HGBT" displayName="HEMOGLOBIN" /> <statusCode code="completed" /> < effectiveTime value="545243531776" /> <value unit="gm/dL" xsi:type="PQ " value="13.6" /> <referenceRange> <observationRange> <text>12.0-16.0</text> </observationRange> </ referenceRange> </observation> </component> <component> <observation moodCode="EVN" classCode="OBS"> <templateId root= "2.16.840.1.828134.07.28.22.4.2" /> <id nullFlavor="NA" /> < code codeSystem="local" code="HCTT" displayName="HEMATOCRIT" /> < statusCode code="completed" /> <effectiveTime value="" /> <value unit="%" xsi:type="PQ" value="40.0" /> < referenceRange> <observationRange> <text>37.0-47.0</text > </observationRange> </referenceRange> </observation > </component> <component> <observation moodCode="EVN" classCode="OBS"> <templateId root="216.840.1.179743..22.4.2" /> <id nullFlavor="NA" /> <code codeSystem="local" code="NA" displayName="SODIUM" /> <statusCode code="completed" /> < effectiveTime value="233821614461" /> <value unit="mmol/L" xsi:type="PQ " value="142" /> <referenceRange> <observationRange> <text>135-148</text> </observationRange> </ referenceRange> </observation> </component> <component> <observation moodCode="EVN" classCode="OBS"> <templateId root= "216.840.1.729748.10..22.4.2" /> <id nullFlavor="NA" /> < code codeSystem="local" code="CL" displayName="CHLORIDE" /> < statusCode code="completed" /> <effectiveTime value="" /> <value unit="mmol/L" xsi:type="PQ" value="100" /> < referenceRange> <observationRange> <text>98-110</text> </observationRange> </referenceRange> </observation> </component> <component> <observation moodCode="EVN" classCode ="OBS"> <templateId root="16.840.1.211493.10...4.2" /> < id nullFlavor="NA" /> <code codeSystem="local" code="CO2" displayName= "CARBON DIOXIDE" /> <statusCode code="completed" /> < effectiveTime value="" /> <value unit="mmol/L" xsi:type="PQ " value="28" /> <referenceRange> <observationRange> <text>21-32</text> </observationRange> </ referenceRange> </observation> </component> <component> <observation moodCode="EVN" classCode="OBS"> <templateId root= "16.840.1.041219.10..22.4.2" /> <id nullFlavor="NA" /> < code codeSystem="local" code="CAION" displayName="CALCIUM IONIZED" /> < statusCode code="completed" /> <effectiveTime value="" /> <value unit="mg/dL" xsi:type="PQ" value="4.7" /> < referenceRange> <observationRange> <text>4.5-5.3</text> </observationRange> </referenceRange> </observation > </component> </organizer> </entry> <entry> <organizer moodCode= "EVN" classCode="BATTERY"> <templateId root="2.16.840.1.525535.10..22.4.1 " /> <id nullFlavor="NA" /> <code codeSystem="local" code="iTROPI" displayName="TROPONIN I BEDSIDE" /> <statusCode code="completed" /> < component> <observation moodCode="EVN" classCode="OBS"> < templateId root="2.16.840.1.310486.10...4.2" /> <id nullFlavor="NA " /> <code codeSystem="local" code="CMETHOD" displayName="METHOD" /> <statusCode code="completed" /> <effectiveTime value= "348564012119" /> <value unit="" xsi:type="PQ" value="Bedside" /> <referenceRange> <observationRange> <text /> </observationRange> </referenceRange> </observation> </component> <component> <observation moodCode="EVN" classCode="OBS "> <templateId root="2.16.840.1.697128.10..22.4.2" /> <id nullFlavor="NA" /> <code codeSystem="local" code="TROPI" displayName= "TROPONIN I" /> <statusCode code="completed" /> < effectiveTime value="633496910983" /> <value unit="ng/mL" xsi:type="PQ " value="< 0.04" /> <referenceRange> <observationRange> <text>< 0.11</text> </observationRange> </ referenceRange> </observation> </component> </organizer> </entry > <entry> <organizer moodCode="EVN" classCode="BATTERY"> <templateId root="2.16.840.1.152405.10..22.4.1" /> <id nullFlavor="NA" /> <code codeSystem="local" code="STREPA" displayName="STREP THROAT SCREEN (GROUP A) - STREP THROAT CULTURE (GROUP A)" /> <statusCode code="completed" /> < component> <observation moodCode="EVN" classCode="OBS"> < templateId root="2.16.840.1.243413.10..22.4.2" /> <id nullFlavor="NA " /> <code codeSystem="local" code="MB" displayName="Microbiology" /> <statusCode code="completed" /> <effectiveTime value= "569405459397" /> <value xsi:type="ST" value="<pre><b>STREP THROAT SCREEN (GROUP A) - STREP THROAT CULTURE (GROUP A)</b> See BelowSTREP THROAT SCREEN (GROUP A)(F) Vero Date/Time: 09/09/2017 16:55 Cj Date/Time: 09/12/2017 12:00SOURCE: THROATSPEC DESC: GROUP [facility]PNEGATIVEOR[facility] [place], [place] [address]See BelowSTREP THROAT CULTURE (GROUP A)(F) Vero Date/Time: 09/09/2017 16: 55 Cj Date/Time: 09/12/2017 12:00SOURCE: THROATSPEC DESC: NNO GROUP A STREPTOCOCCUS ISOLATEDTOWNER [facility] [place] [id number]</pre>" /> <referenceRange> < observationRange> <text /> </observationRange> </referenceRange> </observation> </component> </organizer> </ entry> <entry> <organizer moodCode="EVN" classCode="BATTERY"> < templateId root="2.16.840.1.382670...22.4.1" /> <id nullFlavor="NA" /> <code codeSystem="local" code="CBCWD" displayName="CBC With Platelet and Differential" /> <statusCode code="completed" /> <component> < observation moodCode="EVN" classCode="OBS"> <templateId root= "11.24.840.1.485955...4.2" /> <id nullFlavor="NA" /> < code codeSystem="local" code="ABASR" displayName="Absolute Basophils" /> <statusCode code="completed" /> <effectiveTime value="" /> <value unit="10*3/uL" xsi:type="PQ" value="0.01" /> < referenceRange> <observationRange> <text>0.00-0.20</text > </observationRange> </referenceRange> </observation > </component> <component> <observation moodCode="EVN" classCode="OBS"> <templateId root="840.1.648699.07.28.22.4.2" /> <id nullFlavor="NA" /> <code codeSystem="local" code="AEOSR" displayName="Absolute Eosinophils" /> <statusCode code="completed" /> <effectiveTime value="" /> <value unit="10*3/uL" xsi:type="PQ" value="0.08" /> <referenceRange> < observationRange> <text>0.00-0.50</text> </ observationRange> </referenceRange> </observation> </ component> <component> <observation moodCode="EVN" classCode="OBS"> <templateId root="11.24.840.1.578742...4.2" /> <id nullFlavor="NA" /> <code codeSystem="local" code="ALYMR" displayName= "Absolute Lymphocytes" /> <statusCode code="completed" /> < effectiveTime value="" /> <value unit="10*3/uL" xsi:type= "PQ" value="2.68" /> <referenceRange> <observationRange> <text>0.80-3.30</text> </observationRange> </ referenceRange> </observation> </component> <component> <observation moodCode="EVN" classCode="OBS"> <templateId root= "216.840.1.624920.10..22.4.2" /> <id nullFlavor="NA" /> < code codeSystem="local" code="AMONR" displayName="Absolute Monocytes" /> <statusCode code="completed" /> <effectiveTime value="" /> <value unit="10*3/uL" xsi:type="PQ" value="0.27" /> < interpretationCode codeSystem="local" code="*" /> <referenceRange> <observationRange> <text>0.30-1.00</text> </ observationRange> </referenceRange> </observation> </ component> <component> <observation moodCode="EVN" classCode="OBS"> <templateId root="16.840.1.246147.10.22.4.2" /> <id nullFlavor="NA" /> <code codeSystem="local" code="ASEGR" displayName= "Absolute Neutrophils" /> <statusCode code="completed" /> < effectiveTime value="" /> <value unit="10*3/uL" xsi:type= "PQ" value="3.81" /> <referenceRange> <observationRange> <text>1.90-7.00</text> </observationRange> </ referenceRange> </observation> </component> <component> <observation moodCode="EVN" classCode="OBS"> <templateId root= "216.840.1.275857.10.20.22.4.2" /> <id nullFlavor="NA" /> < code codeSystem="local" code="BASOR" displayName="Basophils" /> < statusCode code="completed" /> <effectiveTime value="" /> <value unit="%" xsi:type="PQ" value="0" /> <referenceRange > <observationRange> <text>0-2</text> </ observationRange> </referenceRange> </observation> </ component> <component> <observation moodCode="EVN" classCode="OBS"> <templateId root="216.840.1.571942.10.22.4.2" /> <id nullFlavor="NA" /> <code codeSystem="local" code="EOSR" displayName= "Eosinophils" /> <statusCode code="completed" /> < effectiveTime value="" /> <value unit="%" xsi:type="PQ " value="1" /> <referenceRange> <observationRange> <text>0-4</text> </observationRange> </referenceRange> </observation> </component> <component> <observation moodCode="EVN" classCode="OBS"> <templateId root= "16.840.1.281411.10.2022.4.2" /> <id nullFlavor="NA" /> < code codeSystem="local" code="HCT" displayName="HCT" /> <statusCode code="completed" /> <effectiveTime value="" /> < value unit="%" xsi:type="PQ" value="38.3" /> <referenceRange> <observationRange> <text>37.0-47.0</text> </ observationRange> </referenceRange> </observation> </ component> <component> <observation moodCode="EVN" classCode="OBS"> <templateId root="216.840.1.979871.10..4.2" /> <id nullFlavor="NA" /> <code codeSystem="local" code="HGB" displayName="HGB " /> <statusCode code="completed" /> <effectiveTime value= "051808521303" /> <value unit="g/dL" xsi:type="PQ" value="12.3" /> <referenceRange> <observationRange> <text>12.0- 16.0</text> </observationRange> </referenceRange> </ observation> </component> <component> <observation moodCode= "EVN" classCode="OBS"> <templateId root="11.24.840.1.465331.07.28.224.2 " /> <id nullFlavor="NA" /> <code codeSystem="local" code= "IMGA" displayName="Immature Granulocytes" /> <statusCode code= "completed" /> <effectiveTime value="062229557087" /> <value unit="%" xsi:type="PQ" value="0.1" /> <referenceRange> < observationRange> <text>0.0-1.0</text> </ observationRange> </referenceRange> </observation> </ component> <component> <observation moodCode="EVN" classCode="OBS"> <templateId root="11.24.840.1.820420...4.2" /> <id nullFlavor="NA" /> <code codeSystem="local" code="LYMPR" displayName= "Lymphocytes" /> <statusCode code="completed" /> < effectiveTime value="" /> <value unit="%" xsi:type="PQ " value="39" /> <referenceRange> <observationRange> <text>20-46</text> </observationRange> </ referenceRange> </observation> </component> <component> <observation moodCode="EVN" classCode="OBS"> <templateId root= "216.840.1.604846.10..22.4.2" /> <id nullFlavor="NA" /> < code codeSystem="local" code="MCH" displayName="MCH" /> <statusCode code="completed" /> <effectiveTime value="" /> < value unit="pg" xsi:type="PQ" value="28.4" /> <referenceRange> <observationRange> <text>27.0-32.0</text> </ observationRange> </referenceRange> </observation> </ component> <component> <observation moodCode="EVN" classCode="OBS"> <templateId root="216.840.1.347475...4.2" /> <id nullFlavor="NA" /> <code codeSystem="local" code="MCHC" displayName= "MCHC" /> <statusCode code="completed" /> <effectiveTime value ="" /> <value unit="g/dL" xsi:type="PQ" value="32.1" /> <referenceRange> <observationRange> <text>32.0- 36.0</text> </observationRange> </referenceRange> </ observation> </component> <component> <observation moodCode= "EVN" classCode="OBS"> <templateId root="216.840.1.815049.10.20.22.4.2 " /> <id nullFlavor="NA" /> <code codeSystem="local" code="MCV " displayName="MCV" /> <statusCode code="completed" /> < effectiveTime value="" /> <value unit="fL" xsi:type="PQ" value="88.5" /> <referenceRange> <observationRange> <text>82.0-99.0</text> </observationRange> </ referenceRange> </observation> </component> <component> <observation moodCode="EVN" classCode="OBS"> <templateId root= "11.24.840.1.761986.10.20.22.4.2" /> <id nullFlavor="NA" /> < code codeSystem="local" code="MONOR" displayName="Monocytes" /> < statusCode code="completed" /> <effectiveTime value="" /> <value unit="%" xsi:type="PQ" value="4" /> <referenceRange > <observationRange> <text>4-11</text> </ observationRange> </referenceRange> </observation> </ component> <component> <observation moodCode="EVN" classCode="OBS"> <templateId root="11.24.840.1.691926.10.20.22.4.2" /> <id nullFlavor="NA" /> <code codeSystem="local" code="MPV" displayName="MPV " /> <statusCode code="completed" /> <effectiveTime value= "626127384316" /> <value unit="fL" xsi:type="PQ" value="9.7" /> <referenceRange> <observationRange> <text>9.4-12.4</ text> </observationRange> </referenceRange> </ observation> </component> <component> <observation moodCode= "EVN" classCode="OBS"> <templateId root="11.24.840.1.980273.07.28.22.4.2 " /> <id nullFlavor="NA" /> <code codeSystem="local" code= "SEGR" displayName="Neutrophils" /> <statusCode code="completed" /> <effectiveTime value="" /> <value unit="%" xsi: type="PQ" value="56" /> <referenceRange> <observationRange> <text>51-75</text> </observationRange> </ referenceRange> </observation> </component> <component> <observation moodCode="EVN" classCode="OBS"> <templateId root= "216.840.1.471714.07.28.22.4.2" /> <id nullFlavor="NA" /> < code codeSystem="local" code="NRBCA" displayName="Nucleated RBC Automated" /> <statusCode code="completed" /> <effectiveTime value= "" /> <value unit="/100WBC" xsi:type="PQ" value="0.0" /> <referenceRange> <observationRange> <text /> </observationRange> </referenceRange> </observation> </component> <component> <observation moodCode="EVN" classCode= "OBS"> <templateId root="216.840.1.155155.07.28.22.4.2" /> < id nullFlavor="NA" /> <code codeSystem="local" code="PLT" displayName= "Platelet Count" /> <statusCode code="completed" /> < effectiveTime value="" /> <value unit="K/uL" xsi:type="PQ" value="272" /> <referenceRange> <observationRange> <text>150-400</text> </observationRange> </ referenceRange> </observation> </component> <component> <observation moodCode="EVN" classCode="OBS"> <templateId root= "16.840.1.580252.10..22.4.2" /> <id nullFlavor="NA" /> < code codeSystem="local" code="RBC" displayName="RBC" /> <statusCode code="completed" /> <effectiveTime value="" /> < value unit="10*6/uL" xsi:type="PQ" value="4.33" /> <referenceRange> <observationRange> <text>4.00-5.20</text> </ observationRange> </referenceRange> </observation> </ component> <component> <observation moodCode="EVN" classCode="OBS"> <templateId root="11.24.840.1.577971...22.4.2" /> <id nullFlavor="NA" /> <code codeSystem="local" code="RDW" displayName="RDW " /> <statusCode code="completed" /> <effectiveTime value= "" /> <value unit="%" xsi:type="PQ" value="13.3" /> <referenceRange> <observationRange> <text>11.5- 14.5</text> </observationRange> </referenceRange> </ observation> </component> <component> <observation moodCode= "EVN" classCode="OBS"> <templateId root="11.24.840.1.108514.10.20.22.4.2 " /> <id nullFlavor="NA" /> <code codeSystem="local" code= "WBCIR" displayName="WBC" /> <statusCode code="completed" /> < effectiveTime value="" /> <value unit="K/uL" xsi:type="PQ" value="6.9" /> <referenceRange> <observationRange> <text>4.8-10.8</text> </observationRange> </ referenceRange> </observation> </component> </organizer> </entry > <entry> <organizer moodCode="EVN" classCode="BATTERY"> <templateId root="11.24.840.1.668913.10..22.4.1" /> <id nullFlavor="NA" /> <code codeSystem="local" code="TROP" displayName="Troponin" /> <statusCode code= "completed" /> <component> <observation moodCode="EVN" classCode= "OBS"> <templateId root="840.1.474213.07.28.22.4.2" /> < id nullFlavor="NA" /> <code codeSystem="local" code="TROP" displayName= "Troponin" /> <statusCode code="completed" /> <effectiveTime value="867518085837" /> <value unit="ng/mL" xsi:type="PQ" value="< 0.05" /> <referenceRange> <observationRange> < text><0.06</text> </observationRange> </referenceRange> </observation> </component> </organizer> </entry> <entry> < organizer moodCode="EVN" classCode="BATTERY"> <templateId root= "11.24.840.1.052129.22.4.1" /> <id nullFlavor="NA" /> <code codeSystem="local" code="CMP" displayName="Comprehensive Metabolic Panel (CMP)" /> <statusCode code="completed" /> <component> <observation moodCode="EVN" classCode="OBS"> <templateId root= "11.24.840.1.721470.10..22.4.2" /> <id nullFlavor="NA" /> < code codeSystem="local" code="ALB" displayName="Albumin" /> < statusCode code="completed" /> <effectiveTime value="651214506342" /> <value unit="g/dL" xsi:type="PQ" value="4.0" /> < referenceRange> <observationRange> <text>3.5-4.8</text> </observationRange> </referenceRange> </observation > </component> <component> <observation moodCode="EVN" classCode="OBS"> <templateId root="11.24.840.1.676393.10.20.22.4.2" /> <id nullFlavor="NA" /> <code codeSystem="local" code="ALP" displayName="Alkaline Phosphatase" /> <statusCode code="completed" /> <effectiveTime value="872237022041" /> <value unit="U/L" xsi: type="PQ" value="83" /> <referenceRange> <observationRange> <text>26-104</text> </observationRange> </ referenceRange> </observation> </component> <component> <observation moodCode="EVN" classCode="OBS"> <templateId root= "11.24.840.1.089376.10.20.22.4.2" /> <id nullFlavor="NA" /> < code codeSystem="local" code="ALT" displayName="ALT (SGPT)" /> < statusCode code="completed" /> <effectiveTime value="288735056630" /> <value unit="U/L" xsi:type="PQ" value="14" /> <referenceRange > <observationRange> <text>14-54</text> </ observationRange> </referenceRange> </observation> </ component> <component> <observation moodCode="EVN" classCode="OBS"> <templateId root="840.1.060528.10.22.4.2" /> <id nullFlavor="NA" /> <code codeSystem="local" code="AGAP" displayName= "Anion Gap" /> <statusCode code="completed" /> <effectiveTime value="143795529368" /> <value unit="mEq/L" xsi:type="PQ" value="9" /> <referenceRange> <observationRange> <text>3-20 </text> </observationRange> </referenceRange> </ observation> </component> <component> <observation moodCode= "EVN" classCode="OBS"> <templateId root="216.840.1.356270.07.28.22.4.2 " /> <id nullFlavor="NA" /> <code codeSystem="local" code="AST " displayName="AST (SGOT)" /> <statusCode code="completed" /> <effectiveTime value="467132269428" /> <value unit="U/L" xsi:type="PQ" value="16" /> <referenceRange> <observationRange> <text>15-41</text> </observationRange> </referenceRange > </observation> </component> <component> <observation moodCode="EVN" classCode="OBS"> <templateId root= "216.840.1.431326.22.4.2" /> <id nullFlavor="NA" /> < code codeSystem="local" code="BILIT" displayName="Bilirubin Total" /> < statusCode code="completed" /> <effectiveTime value="401750213974" /> <value unit="mg/dL" xsi:type="PQ" value="0.8" /> < referenceRange> <observationRange> <text>0.2-1.2</text> </observationRange> </referenceRange> </observation > </component> <component> <observation moodCode="EVN" classCode="OBS"> <templateId root="216.840.1.566522..22.4.2" /> <id nullFlavor="NA" /> <code codeSystem="local" code="BUN" displayName="BUN" /> <statusCode code="completed" /> < effectiveTime value="339394904630" /> <value unit="mg/dL" xsi:type="PQ " value="5" /> <referenceRange> <observationRange> <text>4-20</text> </observationRange> </referenceRange > </observation> </component> <component> <observation moodCode="EVN" classCode="OBS"> <templateId root= "16.840.1.774556.07.28.22.4.2" /> <id nullFlavor="NA" /> < code codeSystem="local" code="CA" displayName="Calcium" /> <statusCode code="completed" /> <effectiveTime value="959708170622" /> < value unit="mg/dL" xsi:type="PQ" value="9.3" /> <referenceRange> <observationRange> <text>8.6-10.0</text> </ observationRange> </referenceRange> </observation> </ component> <component> <observation moodCode="EVN" classCode="OBS"> <templateId root="11.24.840.1.181622.10.22.4.2" /> <id nullFlavor="NA" /> <code codeSystem="local" code="CL" displayName= "Chloride" /> <statusCode code="completed" /> <effectiveTime value="239189965117" /> <value unit="mEq/L" xsi:type="PQ" value="103" / > <referenceRange> <observationRange> <text>99- 109</text> </observationRange> </referenceRange> </ observation> </component> <component> <observation moodCode= "EVN" classCode="OBS"> <templateId root="16.840.1.330750.10.4.2 " /> <id nullFlavor="NA" /> <code codeSystem="local" code="CO2 " displayName="CO2" /> <statusCode code="completed" /> < effectiveTime value="335353291578" /> <value unit="mEq/L" xsi:type="PQ " value="25" /> <referenceRange> <observationRange> <text>22-32</text> </observationRange> </ referenceRange> </observation> </component> <component> <observation moodCode="EVN" classCode="OBS"> <templateId root= "11.24.840.1.285183.07.28.22.4.2" /> <id nullFlavor="NA" /> < code codeSystem="local" code="CREAT" displayName="Creatinine" /> < statusCode code="completed" /> <effectiveTime value="289689064830" /> <value unit="mg/dL" xsi:type="PQ" value="0.54" /> < referenceRange> <observationRange> <text>0.44-1.03</text > </observationRange> </referenceRange> </observation > </component> <component> <observation moodCode="EVN" classCode="OBS"> <templateId root="11.24.840.1.618115...4.2" /> <id nullFlavor="NA" /> <code codeSystem="local" code="GLOB" displayName="Globulin" /> <statusCode code="completed" /> < effectiveTime value="553477616500" /> <value unit="g/dL" xsi:type="PQ" value="3.6" /> <referenceRange> <observationRange> <text>1.9-4.3</text> </observationRange> </ referenceRange> </observation> </component> <component> <observation moodCode="EVN" classCode="OBS"> <templateId root= "11.24.840.1.877994.10..22.4.2" /> <id nullFlavor="NA" /> < code codeSystem="local" code="GLU" displayName="Glucose" /> < statusCode code="completed" /> <effectiveTime value="768347183027" /> <value unit="mg/dL" xsi:type="PQ" value="99" /> < referenceRange> <observationRange> <text>70-100</text> </observationRange> </referenceRange> </observation> </component> <component> <observation moodCode="EVN" classCode ="OBS"> <templateId root="11.24.840.1.812737.10...4.2" /> < id nullFlavor="NA" /> <code codeSystem="local" code="K" displayName= "Potassium" /> <statusCode code="completed" /> <effectiveTime value="077254082358" /> <value unit="mEq/L" xsi:type="PQ" value="3.3" / > <interpretationCode codeSystem="local" code="*" /> < referenceRange> <observationRange> <text>3.6-5.1</text> </observationRange> </referenceRange> </observation > </component> <component> <observation moodCode="EVN" classCode="OBS"> <templateId root="11.24.840.1.291184.10..22.4.2" /> <id nullFlavor="NA" /> <code codeSystem="local" code="TP" displayName="Protein" /> <statusCode code="completed" /> < effectiveTime value="068868903036" /> <value unit="g/dL" xsi:type="PQ" value="7.6" /> <referenceRange> <observationRange> <text>6.1-7.9</text> </observationRange> </ referenceRange> </observation> </component> <component> <observation moodCode="EVN" classCode="OBS"> <templateId root= "11.24.840.1.926933.07.28.224.2" /> <id nullFlavor="NA" /> < code codeSystem="local" code="NA" displayName="Sodium" /> <statusCode code="completed" /> <effectiveTime value="478627760244" /> < value unit="mEq/L" xsi:type="PQ" value="137" /> <referenceRange> <observationRange> <text>136-144</text> </ observationRange> </referenceRange> </observation> </ component> </organizer> </entry> <entry> <organizer moodCode="EVN" classCode="BATTERY"> <templateId root="11.24.840.1.033243.07.28.22.4.1" /> <id nullFlavor="NA" /> <code codeSystem="local" code="GFR" displayName ="eGFR" /> <statusCode code="completed" /> <component> < observation moodCode="EVN" classCode="OBS"> <templateId root= "11.24.840.1.826324.07.28.22.4.2" /> <id nullFlavor="NA" /> < code codeSystem="local" code="GFR" displayName="eGFR" /> <statusCode code="completed" /> <effectiveTime value="043498734659" /> < value unit="mL/min" xsi:type="PQ" value=">60" /> <referenceRange> <observationRange> <text>>60</text> </ observationRange> </referenceRange> </observation> </ component> </organizer> </entry> <entry> <organizer moodCode="EVN" classCode="BATTERY"> <templateId root="11.24.840.1.956579.10.4.1" /> <id nullFlavor="NA" /> <code codeSystem="local" code="TSH" displayName ="TSH" /> <statusCode code="completed" /> <component> < observation moodCode="EVN" classCode="OBS"> <templateId root= "11.24.840.1.374558.10...4.2" /> <id nullFlavor="NA" /> < code codeSystem="local" code="TSH" displayName="TSH" /> <statusCode code="completed" /> <effectiveTime value="096883892478" /> < value unit="uIU/mL" xsi:type="PQ" value="1.30" /> <referenceRange> <observationRange> <text>0.35-5.50</text> </ observationRange> </referenceRange> </observation> </ component> </organizer> </entry> <entry> <organizer moodCode="EVN" classCode="BATTERY"> <templateId root="11.24.840.1.196561.10..4.1" /> <id nullFlavor="NA" /> <code codeSystem="local" code="LIPID" displayName="Lipid Panel" /> <statusCode code="completed" /> < component> <observation moodCode="EVN" classCode="OBS"> < templateId root="840.1.421402.10.20.22.4.2" /> <id nullFlavor="NA " /> <code codeSystem="local" code="CHR" displayName="Cardiac Risk" /> <statusCode code="completed" /> <effectiveTime value= "189822844177" /> <value unit="" xsi:type="PQ" value="7.7" /> <interpretationCode codeSystem="local" code="*" /> <referenceRange> <observationRange> <text>0.0-5.0</text> </ observationRange> </referenceRange> </observation> </ component> <component> <observation moodCode="EVN" classCode="OBS"> <templateId root="11.24.840.1.666484.10..22.4.2" /> <id nullFlavor="NA" /> <code codeSystem="local" code="CHOL" displayName= "Cholesterol" /> <statusCode code="completed" /> < effectiveTime value="664353376820" /> <value unit="mg/dL" xsi:type="PQ " value="292" /> <interpretationCode codeSystem="local" code="*" /> <referenceRange> <observationRange> <text>0-199</ text> </observationRange> </referenceRange> </ observation> </component> <component> <observation moodCode= "EVN" classCode="OBS"> <templateId root="11.24.840.1.456081.10..22.4.2 " /> <id nullFlavor="NA" /> <code codeSystem="local" code="HDL " displayName="HDL Cholesterol" /> <statusCode code="completed" /> <effectiveTime value="857188408243" /> <value unit="mg/dL" xsi: type="PQ" value="38" /> <interpretationCode codeSystem="local" code="* " /> <referenceRange> <observationRange> <text> 40-84</text> </observationRange> </referenceRange> </ observation> </component> <component> <observation moodCode= "EVN" classCode="OBS"> <templateId root="11.24.840.1.195930.10.20.22.4.2 " /> <id nullFlavor="NA" /> <code codeSystem="local" code="LDL " displayName="LDL Cholesterol" /> <statusCode code="completed" /> <effectiveTime value="540356236243" /> <value unit="mg/dL" xsi: type="PQ" value="199" /> <interpretationCode codeSystem="local" code="* " /> <referenceRange> <observationRange> <text> 0-130</text> </observationRange> </referenceRange> </ observation> </component> <component> <observation moodCode= "EVN" classCode="OBS"> <templateId root="11.24.840.1.703852.10..4.2 " /> <id nullFlavor="NA" /> <code codeSystem="local" code= "TRIG" displayName="Triglycerides" /> <statusCode code="completed" /> <effectiveTime value="656444775654" /> <value unit="mg/dL" xsi :type="PQ" value="275" /> <interpretationCode codeSystem="local" code= "*" /> <referenceRange> <observationRange> < text>0-149</text> </observationRange> </referenceRange> </observation> </component> <component> <observation moodCode="EVN" classCode="OBS"> <templateId root= "11.24.840.1.125771.10.20.22.4.2" /> <id nullFlavor="NA" /> < code codeSystem="local" code="VLDL" displayName="VLDL Cholesterol" /> < statusCode code="completed" /> <effectiveTime value="678061519292" /> <value unit="mg/dL" xsi:type="PQ" value="55" /> < interpretationCode codeSystem="local" code="*" /> <referenceRange> <observationRange> <text>0-28</text> </ observationRange> </referenceRange> </observation> </ component> </organizer> </entry> <entry> <organizer moodCode="EVN" classCode="BATTERY"> <templateId root="16.840.1.867478.10.22.4.1" /> <id nullFlavor="NA" /> <code codeSystem="local" code="HA1C" displayName="Hemoglobin A1C" /> <statusCode code="completed" /> < component> <observation moodCode="EVN" classCode="OBS"> < templateId root="16.840.1.561706.10..22.4.2" /> <id nullFlavor="NA " /> <code codeSystem="local" code="HA1C" displayName="Hemoglobin A1C" /> <statusCode code="completed" /> <effectiveTime value= "994944182960" /> <value unit="%" xsi:type="PQ" value="6.6" /> <interpretationCode codeSystem="local" code="*" /> < referenceRange> <observationRange> <text>4.1-5.6</text> </observationRange> </referenceRange> </observation > </component> </organizer> </entry> <entry> <organizer moodCode= "EVN" classCode="BATTERY"> <templateId root="16.840.1.832535..2022.4.1 " /> <id nullFlavor="NA" /> <code codeSystem="local" code="EAG" displayName="Estimated Average Glucose" /> <statusCode code="completed" /> <component> <observation moodCode="EVN" classCode="OBS"> < templateId root="2.16.840.1.185589.10..22.4.2" /> <id nullFlavor="NA " /> <code codeSystem="local" code="EAG" displayName="Estimated Average Glucose" /> <statusCode code="completed" /> < effectiveTime value="466828094222" /> <value unit="mg/dL" xsi:type="PQ " value="142.7" /> <referenceRange> <observationRange> <text /> </observationRange> </referenceRange> </observation> </component> </organizer> </entry> <entry> < organizer moodCode="EVN" classCode="BATTERY"> <templateId root= "216.840.1.901362.10..22.4.1" /> <id nullFlavor="NA" /> <code codeSystem="local" code="TROP" displayName="Troponin" /> <statusCode code= "completed" /> <component> <observation moodCode="EVN" classCode= "OBS"> <templateId root="216.840.1.251596.10..22.4.2" /> < id nullFlavor="NA" /> <code codeSystem="local" code="TROP" displayName= "Troponin" /> <statusCode code="completed" /> <effectiveTime value="069485567849" /> <value unit="ng/mL" xsi:type="PQ" value="< 0.05" /> <referenceRange> <observationRange> < text><0.06</text> </observationRange> </referenceRange> </observation> </component> </organizer> </entry> <entry> < organizer moodCode="EVN" classCode="BATTERY"> <templateId root= "840.1.827436.07.28.22.4.1" /> <id nullFlavor="NA" /> <code codeSystem="local" code="TROP" displayName="Troponin" /> <statusCode code= "completed" /> <component> <observation moodCode="EVN" classCode= "OBS"> <templateId root="840.1.761810.07.28.224.2" /> < id nullFlavor="NA" /> <code codeSystem="local" code="TROP" displayName= "Troponin" /> <statusCode code="completed" /> <effectiveTime value="358604573065" /> <value unit="ng/mL" xsi:type="PQ" value="< 0.05" /> <referenceRange> <observationRange> < text><0.06</text> </observationRange> </referenceRange> </observation> </component> </organizer> </entry> <entry> < organizer moodCode="EVN" classCode="BATTERY"> <templateId root= "840.1.109634.07.28.22.4.1" /> <id nullFlavor="NA" /> <code codeSystem="local" code="CBCND" displayName="CBC With Platelet No Differential" /> <statusCode code="completed" /> <component> <observation moodCode="EVN" classCode="OBS"> <templateId root= "840.1.907333.07.28.22.4.2" /> <id nullFlavor="NA" /> < code codeSystem="local" code="HCT" displayName="HCT" /> <statusCode code="completed" /> <effectiveTime value="" /> < value unit="%" xsi:type="PQ" value="37.2" /> <referenceRange> <observationRange> <text>37.0-47.0</text> </ observationRange> </referenceRange> </observation> </ component> <component> <observation moodCode="EVN" classCode="OBS"> <templateId root="11.24.840.1.269980.10.22.4.2" /> <id nullFlavor="NA" /> <code codeSystem="local" code="HGB" displayName="HGB " /> <statusCode code="completed" /> <effectiveTime value= "" /> <value unit="g/dL" xsi:type="PQ" value="11.6" /> <interpretationCode codeSystem="local" code="*" /> < referenceRange> <observationRange> <text>12.0-16.0</text > </observationRange> </referenceRange> </observation > </component> <component> <observation moodCode="EVN" classCode="OBS"> <templateId root="11.24.840.1.891139.07.28.22.4.2" /> <id nullFlavor="NA" /> <code codeSystem="local" code="MCH" displayName="MCH" /> <statusCode code="completed" /> < effectiveTime value="" /> <value unit="pg" xsi:type="PQ" value="28.2" /> <referenceRange> <observationRange> <text>27.0-32.0</text> </observationRange> </ referenceRange> </observation> </component> <component> <observation moodCode="EVN" classCode="OBS"> <templateId root= "11.24.840.1.636071.07.28.22.4.2" /> <id nullFlavor="NA" /> < code codeSystem="local" code="MCHC" displayName="MCHC" /> <statusCode code="completed" /> <effectiveTime value="" /> < value unit="g/dL" xsi:type="PQ" value="31.2" /> <interpretationCode codeSystem="local" code="*" /> <referenceRange> < observationRange> <text>32.0-36.0</text> </ observationRange> </referenceRange> </observation> </ component> <component> <observation moodCode="EVN" classCode="OBS"> <templateId root="216.840.1.495425.07.28.224.2" /> <id nullFlavor="NA" /> <code codeSystem="local" code="MCV" displayName="MCV " /> <statusCode code="completed" /> <effectiveTime value= "" /> <value unit="fL" xsi:type="PQ" value="90.5" /> <referenceRange> <observationRange> <text>82.0-99.0< /text> </observationRange> </referenceRange> </ observation> </component> <component> <observation moodCode= "EVN" classCode="OBS"> <templateId root="216.840.1.423706.10.4.2 " /> <id nullFlavor="NA" /> <code codeSystem="local" code="MPV " displayName="MPV" /> <statusCode code="completed" /> < effectiveTime value="" /> <value unit="fL" xsi:type="PQ" value="9.8" /> <referenceRange> <observationRange> <text>9.4-12.4</text> </observationRange> </ referenceRange> </observation> </component> <component> <observation moodCode="EVN" classCode="OBS"> <templateId root= "11.24.840.1.259488.10.2022.4.2" /> <id nullFlavor="NA" /> < code codeSystem="local" code="PLT" displayName="Platelet Count" /> < statusCode code="completed" /> <effectiveTime value="" /> <value unit="K/uL" xsi:type="PQ" value="254" /> < referenceRange> <observationRange> <text>150-400</text> </observationRange> </referenceRange> </observation > </component> <component> <observation moodCode="EVN" classCode="OBS"> <templateId root="16.840.1.819114.22.4.2" /> <id nullFlavor="NA" /> <code codeSystem="local" code="RBC" displayName="RBC" /> <statusCode code="completed" /> < effectiveTime value="" /> <value unit="10*6/uL" xsi:type= "PQ" value="4.11" /> <referenceRange> <observationRange> <text>4.00-5.20</text> </observationRange> </ referenceRange> </observation> </component> <component> <observation moodCode="EVN" classCode="OBS"> <templateId root= "11.24.840.1.808908.10.20.22.4.2" /> <id nullFlavor="NA" /> < code codeSystem="local" code="RDW" displayName="RDW" /> <statusCode code="completed" /> <effectiveTime value="" /> < value unit="%" xsi:type="PQ" value="13.6" /> <referenceRange> <observationRange> <text>11.5-14.5</text> </ observationRange> </referenceRange> </observation> </ component> <component> <observation moodCode="EVN" classCode="OBS"> <templateId root="11.24.840.1.031225.10.20.22.4.2" /> <id nullFlavor="NA" /> <code codeSystem="local" code="WBCIR" displayName= "WBC" /> <statusCode code="completed" /> <effectiveTime value= "011702402868" /> <value unit="K/uL" xsi:type="PQ" value="6.3" /> <referenceRange> <observationRange> <text>4.8-10.8< /text> </observationRange> </referenceRange> </ observation> </component> </organizer> </entry> <entry> <organizer moodCode="EVN" classCode="BATTERY"> <templateId root= "11.24.840.1.184314.10..22.4.1" /> <id nullFlavor="NA" /> <code codeSystem="local" code="RENAL" displayName="Renal Function Panel" /> < statusCode code="completed" /> <component> <observation moodCode= "EVN" classCode="OBS"> <templateId root="11.24.840.1.983411.10.20.22.4.2 " /> <id nullFlavor="NA" /> <code codeSystem="local" code="ALB " displayName="Albumin" /> <statusCode code="completed" /> < effectiveTime value="632451505438" /> <value unit="g/dL" xsi:type="PQ" value="3.7" /> <referenceRange> <observationRange> <text>3.5-4.8</text> </observationRange> </ referenceRange> </observation> </component> <component> <observation moodCode="EVN" classCode="OBS"> <templateId root= "11.24.840.1.178151.22.4.2" /> <id nullFlavor="NA" /> < code codeSystem="local" code="AGAP" displayName="Anion Gap" /> < statusCode code="completed" /> <effectiveTime value="" /> <value unit="mEq/L" xsi:type="PQ" value="8" /> <referenceRange > <observationRange> <text>3-20</text> </ observationRange> </referenceRange> </observation> </ component> <component> <observation moodCode="EVN" classCode="OBS"> <templateId root="11.24.840.1.853376.07.28.22.4.2" /> <id nullFlavor="NA" /> <code codeSystem="local" code="BUN" displayName="BUN " /> <statusCode code="completed" /> <effectiveTime value= "" /> <value unit="mg/dL" xsi:type="PQ" value="9" /> <referenceRange> <observationRange> <text>4-20</text > </observationRange> </referenceRange> </observation > </component> <component> <observation moodCode="EVN" classCode="OBS"> <templateId root="11.24.840.1.909196.1022.4.2" /> <id nullFlavor="NA" /> <code codeSystem="local" code="CA" displayName="Calcium" /> <statusCode code="completed" /> < effectiveTime value="" /> <value unit="mg/dL" xsi:type="PQ " value="9.0" /> <referenceRange> <observationRange> <text>8.6-10.0</text> </observationRange> </ referenceRange> </observation> </component> <component> <observation moodCode="EVN" classCode="OBS"> <templateId root= "216.840.1.535618.10..4.2" /> <id nullFlavor="NA" /> < code codeSystem="local" code="CL" displayName="Chloride" /> < statusCode code="completed" /> <effectiveTime value="" /> <value unit="mEq/L" xsi:type="PQ" value="106" /> < referenceRange> <observationRange> <text>99-109</text> </observationRange> </referenceRange> </observation> </component> <component> <observation moodCode="EVN" classCode ="OBS"> <templateId root="11.24.840.1.833972.10.4.2" /> < id nullFlavor="NA" /> <code codeSystem="local" code="CO2" displayName= "CO2" /> <statusCode code="completed" /> <effectiveTime value= "" /> <value unit="mEq/L" xsi:type="PQ" value="27" /> <referenceRange> <observationRange> <text>22-32</ text> </observationRange> </referenceRange> </ observation> </component> <component> <observation moodCode= "EVN" classCode="OBS"> <templateId root="11.24.840.1.218827.10..4.2 " /> <id nullFlavor="NA" /> <code codeSystem="local" code= "CREAT" displayName="Creatinine" /> <statusCode code="completed" /> <effectiveTime value="" /> <value unit="mg/dL" xsi: type="PQ" value="0.68" /> <referenceRange> <observationRange > <text>0.44-1.03</text> </observationRange> </ referenceRange> </observation> </component> <component> <observation moodCode="EVN" classCode="OBS"> <templateId root= "16.840.1.378189.22.4.2" /> <id nullFlavor="NA" /> < code codeSystem="local" code="GLU" displayName="Glucose" /> < statusCode code="completed" /> <effectiveTime value="" /> <value unit="mg/dL" xsi:type="PQ" value="121" /> < interpretationCode codeSystem="local" code="*" /> <referenceRange> <observationRange> <text>70-100</text> </ observationRange> </referenceRange> </observation> </ component> <component> <observation moodCode="EVN" classCode="OBS"> <templateId root="16.840.1.839150.07.28.22.4.2" /> <id nullFlavor="NA" /> <code codeSystem="local" code="PHOS" displayName= "Phosphorus" /> <statusCode code="completed" /> < effectiveTime value="" /> <value unit="mg/dL" xsi:type="PQ " value="5.5" /> <interpretationCode codeSystem="local" code="*" /> <referenceRange> <observationRange> <text>2.4-4.7 </text> </observationRange> </referenceRange> </ observation> </component> <component> <observation moodCode= "EVN" classCode="OBS"> <templateId root="[id number] " /> <id nullFlavor="NA" /> <code codeSystem="local" code="K" displayName="Potassium" /> <statusCode code="completed" /> < effectiveTime value="[id number]" /> <value unit="mEq/L" xsi:type="PQ " value="3.3" /> <interpretationCode codeSystem="local" code="*" /> <referenceRange> <observationRange> <text>3.6-5.1 </text> </observationRange> </referenceRange> </ observation> </component> <component> <observation moodCode= "EVN" classCode="OBS"> <templateId root="[id number] " /> <id nullFlavor="NA" /> <code codeSystem="local" code="NA " displayName="Sodium" /> <statusCode code="completed" /> < effectiveTime value="" /> <value unit="mEq/L" xsi:type="PQ " value="141" /> <referenceRange> <observationRange> <text>136-144</text> </observationRange> </ referenceRange> </observation> </component> </organizer> </entry > <entry> <organizer moodCode="EVN" classCode="BATTERY"> <templateId root="[id number]" /> <id nullFlavor="NA" /> <code codeSystem="local" code="GFR" displayName="eGFR" /> <statusCode code= "completed" /> <component> <observation moodCode="EVN" classCode= "OBS"> <templateId root="840.1.145343.22.4.2" /> < id nullFlavor="NA" /> <code codeSystem="local" code="GFR" displayName= "eGFR" /> <statusCode code="completed" /> <effectiveTime value ="[id number]" /> <value unit="mL/min" xsi:type="PQ" value=">60" / > <referenceRange> <observationRange> <text>&gt ;60</text> </observationRange> </referenceRange> </ observation> </component> </organizer> </entry></section> Encounters ACCT No. Visit Date/Time Discharge Status Pt. Type Provider Facility Loc./Unit Complaint [id number] 06/04/2013 12:29:00 06/04/2013 13:48:00 DIS Emergency Angela SAEED, [facility] [id number] 02/16/2013 08:50:00 02/16/2013 12:38:00 DIS Emergency Angela SAEED, [facility] [id number] 02/14/2018 14:47:00 02/15/2018 13:29:00 DIS Outpatient Young Armendariz [facility] on [facility] J5E CHest Pain/SOB/DM [id number] 07/18/2016 15:34:00 07/18/2016 17:15:00 DIS Emergency Wagner Bowen [facility] ED Back Pain [id number] 02/16/2018 05:18:02 Document Registration [id number] 02/15/2018 05:18:27 Document Registration [id number] 02/15/2018 05:18:26 Document Registration [id number] 07/19/2016 05:18:47 Document Registration [id number] 09/09/2017 16:20:00 09/09/2017 17:27:00 DIS Emergency Kvng Tavares DO [facility] W.EDW [id number] 08/24/2013 20:39:00 08/24/2013 22:02:00 DIS Emergency Ortega SAEED, Andi Rivas [facility] W.EDW [id number] 05/25/2013 02:29:00 05/25/2013 03:37:00 DIS Emergency Fabian SAEED, [facility] W.EDW [id number] 09/09/2012 14:57:00 09/09/2012 17:05:00 DIS Emergency [facility] [id number] 05/23/2012 11:27:00 05/23/2012 13:44:00 DIS Emergency [facility] [id number] 03/15/2018 00:00:00 Document Registration [id number] 04/29/2017 08:45:00 Document Registration [id number] 04/29/2017 08:45:00 Document Registration [id number] 04/29/2017 00:00:00 Document Registration [id number] 11/08/2015 20:11:00 11/08/2015 22:35:00 DIS Emergency Ethan SAEED, [facility] E.ED
[2018-04-28] MEDS ORDERED: METF500T5 PO (12:22)
--- NOTE | 2018-04-28 13:19 | ED Upper Extremity ---
General Chief Complaint: Upper Extremity Stated Complaint: L ARM PAIN/SWELLING Nursing Triage Note: ARRIVED VIA AMB TO ROOM 10. COMPLAINS OF LEFT ARM PAIN AND SWELLING STARTING YESTERDAY. DENIES INJURY. STATES SHE HAS BEEN USING ICY HOT WHICH HAS NOT HELPED. Nursing Sepsis Screen: No Definite Risk History of Present Illness Date Seen by Provider: Apr 28, 2018 Time Seen by Provider: 13:14 Initial Comments The patient is a 43-year-old black female who presents with a chief complaint of left elbow pain. There is no injury. She has had no past history of difficulties with the elbow. Her work requires typing which she did yesterday. She does not rest her elbows on the desk. She had thought this might be bursitis. Onset: yesterday Pain/Injury Location: left elbow Method of Injury: unknown Allergies and Home Medications Allergies Coded Allergies: Penicillins (Verified Allergy, Unknown, 04/28/18) aspirin (Verified Allergy, Unknown, 04/28/18) Home Medications Metformin HCl 500 Mg Tablet, 500 MG PO DAILY, (Reported) Patient Home Medication List Home Medication List Reviewed: Yes Constitutional: see HPI EENTM: no symptoms reported Respiratory: no symptoms reported Cardiovascular: no symptoms reported Gastrointestinal: no symptoms reported Genitourinary: no symptoms reported Musculoskeletal: see HPI, joint pain, joint swelling Skin: no symptoms reported Psychiatric/Neurological: No Symptoms Reported Past Gmyqcan-Eyizap-Vjogjy Hx Patient Social History Alcohol Use: Denies Use Recreational Drug Use: No Smoking Status: Current Everyday Smoker Recent Foreign Travel: No Contact w/Someone Who Travel: No Recent Infectious Disease Expo: No Recent Hopitalizations: No Past Medical History Surgeries: Yes Section, Hysterectomy, Orthopedic Respiratory: No Cardiac: Yes High Cholesterol Neurological: No Genitourinary: No Gastrointestinal: No Musculoskeletal: No Endocrine: Yes Diabetes, Non-Insulin dep Cancer: No Physical Exam Vital Signs Vital Signs - First Documented 04/28/18 12:11 Temp 98.0 Pulse 78 Resp 16 B/P (MAP) 134/72 (92) Pulse Ox 97 O2 Delivery Room Air Capillary Refill : Less Than 3 Seconds Height, Weight, BMI Height: 5'8.00" Weight: 300lbs. oz. 136.464113ph; BMI Method:Estimated General Appearance: mild distress HEENT: normal ENT inspection Neck: non-tender, full range of motion, supple, normal inspection Cardiovascular: normal peripheral pulses, regular rate, rhythm, no edema, no gallop, no JVD, no murmur Respiratory: chest non-tender There is no warmth to palpation of the elbow. There is no fluid in the olecranon bursa. There is pain to palpation and rotation in the epicondylar region. Progress/Results/Core Measures Results/Orders My Orders Orders - SETH MEYER MD Elbow, Left, 3 Views (04/28/18 13:12) Vital Signs/I&O 04/28/18 12:11 Temp 98.0 Pulse 78 Resp 16 B/P (MAP) 134/72 (92) Pulse Ox 97 O2 Delivery Room Air Blood Pressure Mean: 92 Departure Impression Primary Impression: Epicondylitis, lateral Disposition: 01 HOME, SELF-CARE Condition: Stable/Unchanged Departure-Patient Inst. Decision time for Depature: 13:58 Referrals: NO,LOCAL PHYSICIAN (PCP) Primary Care Physician Patient Instructions: How to Use a Shoulder Sling Add. Discharge Instructions: All discharge instructions reviewed with patient and/or family. Voiced understanding. Use the sling while up and about. Use ibuprofen 600 mg 3 times daily or naproxen 440 mg twice daily SETH MEYER MD Apr 28, 2018 13:19
--- NOTE | 2018-04-28 13:53 | Diagnostic Imaging Report ---
Left elbow. INDICATION: Elbow pain. 3 views were obtained. FINDINGS: The is no fracture, dislocation or acute bony abnormality evident. The posterior fat-pad is not elevated either. There are faint calcific densities in the soft tissues adjacent to both the medial and lateral upper epicondyle of the distal humerus. These may be a sequela of prior trauma. There is also a small bony excrescence along the posterior aspect of the olecranon process near the expected insertion of the triceps tendon. This too may be related to previous injury to the triceps tendon. The soft tissues are otherwise unremarkable. IMPRESSION: 1. There is no acute bony abnormality identified. 2. If there is clinical concern regarding a ligamentous or tendonous injury, then MRI would be recommended for additional study. Dictated by: Dictated on workstation # [id number]
[2018-04-28] MEDS ORDERED: IBUPROFEN 600 MG (MOTRIN) TAB PO ONE (14:15)
[2018-04-28 14:20] VITALS: BP 132/78
[2018-04-29] MEDS ORDERED: VENL-48 (03:53)
== END 2018-04-28 14:20 | disposition home or self-care (01) ==
LOC: ER 11:55
DX: M77.12 Lateral epicondylitis, left elbow (principal); F17.200 Nicotine dependence, unspecified, uncomplicated; E78.00 Pure hypercholesterolemia, unspecified; E11.9 Type 2 diabetes mellitus without complications; Z88.0 Allergy status to penicillin; Z88.6 Allergy status to analgesic agent; Z79.84 Long term (current) use of oral hypoglycemic drugs; Z90.710 Acquired absence of both cervix and uterus
CPT/HCPCS: 73080

== ENCOUNTER 2018-04-29 03:40 | Emergency (ER) | payer OTHER ==
[~2018-04-29] VITALS: Ht 172.7 cm; Wt 154.2 kg
[~2018-04-29 03:40] MED LIST: METF500T5 PO
--- OUTSIDE RECORDS SUMMARY | 2018-04-29 03:49 | XMS REPORT | Continuity of Care Document ---
Author Author [facility] Organization [facility] Address Unknown Phone Unavailable Allergies Active [...] Start Date Stop Date Route Dosage Sig HYDROcodone-acetaminophen([place] 5 mg-325 mg oral tablet) 1 tabs [...] By Performed On Void Charge Void 04/29/2017 19072 EYE EXAM, NEW PATIENT 04/29/2017 48832 REFRACTION 04/29/2017 V2020 Vision svcs frames purchases [...] 03/15/2018 <section xmlns="urn:hl7-org:v3" xmlns:xsi= "http://www.3.org/2001/XMLSchema-instance"> <templateId root= "2.16.840.1.961904.10.20.22.2.3" /> <templateId root= "2.16.840.1.505719.10.20.22.2.3.1" /> <code codeSystemName="LOINC" codeSystem= "2.16.840.1.017185.6.1" code="51207-6" displayName="Results" /> <title>Results< /title> <text> <table> <thead> [...] <entry> <organizer moodCode ="EVN" classCode="BATTERY"> <templateId root= "216.840.1.175263.10...4.1" /> <id nullFlavor="NA" /> <code codeSystem="local" code="STREPA" displayName="STREP THROAT SCREEN (GROUP A) - STREP THROAT CULTURE (GROUP A)" /> <statusCode code="completed" /> < component> <observation moodCode="EVN" classCode="OBS"> < templateId root="216.840.1.383181.10..22.4.2" /> <id nullFlavor="NA " /> <code codeSystem="local" code="UNC" displayName="Uncategorized" / > <statusCode code="completed" /> <effectiveTime value= "369364442468" /> <value xsi:type="ST" value="<pre><b>STREP THROAT SCREEN (GROUP A) - STREP THROAT CULTURE (GROUP A)</b> See BelowSTREP THROAT SCREEN (GROUP A)(F) Vero Date/Time: 09/09/2012 15:55 Cj Date/Time: 09/11/2012 13:10SOURCE: THROATSPEC DESC: [facility]IVEL[facility] - [id number] [address] [address]Mem BelowSTREP THROAT CULTURE (GROUP A)(F) Vero Date/Time: 09/09/2012 15: 55 Cj Date/Time: 09/11/2012 13:10SOURCE: THROATSPEC DESC: NO GROUP A STREPTOCOCCUS ISOLATEDOrganism #1 STREP AGALACTIAE ( GROUP B)QUANTITATION .[facility] - [id number] [place] [address]</pre>" /> <referenceRange> < observationRange> <text /> </observationRange> </referenceRange> </observation> </component> </organizer> </ entry> <entry> <organizer moodCode="EVN" classCode="BATTERY"> < templateId root="2.16.840.1.870909.10..22.4.1" /> <id nullFlavor="NA" /> <code codeSystem="local" code="iTROPI" displayName="TROPONIN I BEDSIDE" / > <statusCode code="completed" /> <component> <observation moodCode="EVN" classCode="OBS"> <templateId root= "2.16.840.1.313053.10..22.4.2" /> <id nullFlavor="NA" /> < code codeSystem="local" code="CMETHOD" displayName="METHOD" /> < statusCode code="completed" /> <effectiveTime value="218383600404" /> <value unit="" xsi:type="PQ" value="Bedside" /> < referenceRange> <observationRange> <text /> < /observationRange> </referenceRange> </observation> </ component> <component> <observation moodCode="EVN" classCode="OBS"> <templateId root="216.840.1.117311.10.20.22.4.2" /> <id nullFlavor="NA" /> <code codeSystem="local" code="TROPI" displayName= "TROPONIN I" /> <statusCode code="completed" /> < effectiveTime value="461456206402" /> <value unit="ng/mL" xsi:type="PQ " value="< 0.04" /> <referenceRange> <observationRange> <text>< 0.11</text> </observationRange> </ referenceRange> </observation> </component> </organizer> </entry > <entry> <organizer moodCode="EVN" classCode="BATTERY"> <templateId root="16.840.1.189694.10..22.4.1" /> <id nullFlavor="NA" /> <code codeSystem="local" code="DIMER" displayName="D-DIMER QUANT" /> <statusCode code="completed" /> <component> <observation moodCode="EVN" classCode="OBS"> <templateId root="16.840.1.919957.10.20.22.4.2" /> <id nullFlavor="NA" /> <code codeSystem="local" code="DIMER" displayName="D-DIMER QUANT" /> <statusCode code="completed" /> <effectiveTime value="690824098906" /> <value unit="ng/mL" xsi:type= "PQ" value="< 150" /> <referenceRange> <observationRange > <text>0-229</text> </observationRange> </ referenceRange> </observation> </component> </organizer> </entry > <entry> <organizer moodCode="EVN" classCode="BATTERY"> <templateId root="216.840.1.516726.10...4.1" /> <id nullFlavor="NA" /> <code codeSystem="local" code="CBCD" displayName="CBC W/DIFF" /> <statusCode code ="completed" /> <component> <observation moodCode="EVN" classCode= "OBS"> <templateId root="2.16.840.1.307615...4.2" /> < id nullFlavor="NA" /> <code codeSystem="local" code="BA#" displayName= "BASOPHIL #" /> <statusCode code="completed" /> < effectiveTime value="414931905924" /> <value unit="k/cumm" xsi:type="PQ " value="0.0" /> <referenceRange> <observationRange> <text>0.0-0.2</text> </observationRange> </ referenceRange> </observation> </component> <component> <observation moodCode="EVN" classCode="OBS"> <templateId root= "216.840.1.761270...4.2" /> <id nullFlavor="NA" /> < code codeSystem="local" code="BA%" displayName="BASOPHIL %" /> <statusCode code="completed" /> <effectiveTime value="874620935936" /> <value unit="%" xsi:type="PQ" value="1" /> < referenceRange> <observationRange> <text>0-1</text> </observationRange> </referenceRange> </observation> </component> <component> <observation moodCode="EVN" classCode= "OBS"> <templateId root="11.24.840.1.189961.07.28.22.4.2" /> < id nullFlavor="NA" /> <code codeSystem="local" code="EO#" displayName= "EOSINOPHIL #" /> <statusCode code="completed" /> < effectiveTime value="913144072084" /> <value unit="k/cumm" xsi:type="PQ " value="0.1" /> <referenceRange> <observationRange> <text>0.1-0.5</text> </observationRange> </ referenceRange> </observation> </component> <component> <observation moodCode="EVN" classCode="OBS"> <templateId root= "11.24.840.1.363203.07.28.22.4.2" /> <id nullFlavor="NA" /> < code codeSystem="local" code="EO%" displayName="EOSINOPHIL %" /> <statusCode code="completed" /> <effectiveTime value="188386815375" /> <value unit="%" xsi:type="PQ" value="1" /> < interpretationCode codeSystem="local" code="*" /> <referenceRange> <observationRange> <text>2-4</text> </ observationRange> </referenceRange> </observation> </ component> <component> <observation moodCode="EVN" classCode="OBS"> <templateId root="11.24.840.1.151868.07.28.22.4.2" /> <id nullFlavor="NA" /> <code codeSystem="local" code="GR#" displayName= "GRANULOCYTE #" /> <statusCode code="completed" /> < effectiveTime value="834867025102" /> <value unit="k/cumm" xsi:type="PQ " value="3.8" /> <referenceRange> <observationRange> <text>2.0-9.0</text> </observationRange> </ referenceRange> </observation> </component> <component> <observation moodCode="EVN" classCode="OBS"> <templateId root= "216.840.1.393686.10..22.4.2" /> <id nullFlavor="NA" /> < code codeSystem="local" code="GR%" displayName="GRANULOCYTE %" /> <statusCode code="completed" /> <effectiveTime value="219421175886 " /> <value unit="%" xsi:type="PQ" value="50" /> < referenceRange> <observationRange> <text>50-75</text> </observationRange> </referenceRange> </observation> </component> <component> <observation moodCode="EVN" classCode= "OBS"> <templateId root="11.24.840.1.026876.10...4.2" /> < id nullFlavor="NA" /> <code codeSystem="local" code="LY#" displayName= "LYMPHOCYTE #" /> <statusCode code="completed" /> < effectiveTime value="088587622131" /> <value unit="k/cumm" xsi:type="PQ " value="3.2" /> <referenceRange> <observationRange> <text>1.0-4.0</text> </observationRange> </ referenceRange> </observation> </component> <component> <observation moodCode="EVN" classCode="OBS"> <templateId root= "16.840.1.848874.10.20.22.4.2" /> <id nullFlavor="NA" /> < code codeSystem="local" code="LY%" displayName="LYMPHOCYTE %" /> <statusCode code="completed" /> <effectiveTime value="588983410427" /> <value unit="%" xsi:type="PQ" value="43" /> < interpretationCode codeSystem="local" code="*" /> <referenceRange> <observationRange> <text>20-30</text> </ observationRange> </referenceRange> </observation> </ component> <component> <observation moodCode="EVN" classCode="OBS"> <templateId root="2.16.840.1.615717.10..4.2" /> <id nullFlavor="NA" /> <code codeSystem="local" code="MCH" displayName= "MEAN CELL HGB" /> <statusCode code="completed" /> < effectiveTime value="356340550576" /> <value unit="pg" xsi:type="PQ" value="28.3" /> <referenceRange> <observationRange> <text>27.0-33.0</text> </observationRange> </ referenceRange> </observation> </component> <component> <observation moodCode="EVN" classCode="OBS"> <templateId root= "2.16.840.1.217405.07.28.22.4.2" /> <id nullFlavor="NA" /> < code codeSystem="local" code="MCHC" displayName="MEAN CELL HGB CONCENTRATION" / > <statusCode code="completed" /> <effectiveTime value= "460712674028" /> <value unit="g/dL" xsi:type="PQ" value="31.4" /> <interpretationCode codeSystem="local" code="*" /> < referenceRange> <observationRange> <text>32.0-37.0</text > </observationRange> </referenceRange> </observation > </component> <component> <observation moodCode="EVN" classCode="OBS"> <templateId root="216.840.1.086400.07.28.22.4.2" /> <id nullFlavor="NA" /> <code codeSystem="local" code="MCV" displayName="MEAN CELL VOLUME" /> <statusCode code="completed" /> <effectiveTime value="896884652452" /> <value unit="fl" xsi:type= "PQ" value="90.0" /> <referenceRange> <observationRange> <text>80.0-100.0</text> </observationRange> </ referenceRange> </observation> </component> <component> <observation moodCode="EVN" classCode="OBS"> <templateId root= "11.24.840.1.167192.07.28.22.4.2" /> <id nullFlavor="NA" /> < code codeSystem="local" code="MO#" displayName="MONOCYTE #" /> < statusCode code="completed" /> <effectiveTime value="963125265486" /> <value unit="k/cumm" xsi:type="PQ" value="0.4" /> < referenceRange> <observationRange> <text>0.1-1.0</text> </observationRange> </referenceRange> </observation > </component> <component> <observation moodCode="EVN" classCode="OBS"> <templateId root="11.24.840.1.191276.07.28.22.4.2" /> <id nullFlavor="NA" /> <code codeSystem="local" code="MO% " displayName="MONOCYTE %" /> <statusCode code="completed" /> <effectiveTime value="393567821703" /> <value unit="%" xsi: type="PQ" value="5" /> <referenceRange> <observationRange> <text>4-6</text> </observationRange> </ referenceRange> </observation> </component> <component> <observation moodCode="EVN" classCode="OBS"> <templateId root= "2.16.840.1.884346.10..22.4.2" /> <id nullFlavor="NA" /> < code codeSystem="local" code="RBC" displayName="RED BLOOD CELL" /> < statusCode code="completed" /> <effectiveTime value="745734793305" /> <value unit="m/cumm" xsi:type="PQ" value="4.42" /> < referenceRange> <observationRange> <text>4.00-6.00</text > </observationRange> </referenceRange> </observation > </component> <component> <observation moodCode="EVN" classCode="OBS"> <templateId root="216.840.1.273563.10...4.2" /> <id nullFlavor="NA" /> <code codeSystem="local" code="RDW" displayName="RED CELL DISTRIBUTION WIDTH" /> <statusCode code= "completed" /> <effectiveTime value="222125820782" /> <value unit="%" xsi:type="PQ" value="13.1" /> <referenceRange> <observationRange> <text>11.0-15.6</text> </ observationRange> </referenceRange> </observation> </ component> <component> <observation moodCode="EVN" classCode="OBS"> <templateId root="216.840.1.332499.10..22.4.2" /> <id nullFlavor="NA" /> <code codeSystem="local" code="WBC" displayName= "WHITE BLOOD CELL" /> <statusCode code="completed" /> < effectiveTime value="219972602495" /> <value unit="k/cumm" xsi:type="PQ " value="7.6" /> <referenceRange> <observationRange> <text>5.0-10.0</text> </observationRange> </ referenceRange> </observation> </component> <component> <observation moodCode="EVN" classCode="OBS"> <templateId root= "216.840.1.909518.10.20.22.4.2" /> <id nullFlavor="NA" /> < code codeSystem="local" code="HGBT" displayName="HEMOGLOBIN" /> < statusCode code="completed" /> <effectiveTime value="568675779414" /> <value unit="gm/dL" xsi:type="PQ" value="12.5" /> < referenceRange> <observationRange> <text>12.0-16.0</text > </observationRange> </referenceRange> </observation > </component> <component> <observation moodCode="EVN" classCode="OBS"> <templateId root="2.16.840.1.019907.10.20.22.4.2" /> <id nullFlavor="NA" /> <code codeSystem="local" code="HCTT" displayName="HEMATOCRIT" /> <statusCode code="completed" /> < effectiveTime value="321821670339" /> <value unit="%" xsi:type="PQ " value="39.8" /> <referenceRange> <observationRange> <text>37.0-47.0</text> </observationRange> </ referenceRange> </observation> </component> <component> <observation moodCode="EVN" classCode="OBS"> <templateId root= "16.840.1.594068.10...4.2" /> <id nullFlavor="NA" /> < code codeSystem="local" code="PLT" displayName="PLATELET COUNT" /> < statusCode code="completed" /> <effectiveTime value="137459466565" /> <value unit="k/cumm" xsi:type="PQ" value="285" /> < referenceRange> <observationRange> <text>150-450</text> </observationRange> </referenceRange> </observation > </component> </organizer> </entry> <entry> <organizer moodCode= "EVN" classCode="BATTERY"> <templateId root="16.840.1.447455.10..22.4.1 " /> <id nullFlavor="NA" /> <code codeSystem="local" code="iTROPI" displayName="TROPONIN I BEDSIDE" /> <statusCode code="completed" /> < component> <observation moodCode="EVN" classCode="OBS"> < templateId root="11.24.840.1.180682...4.2" /> <id nullFlavor="NA " /> <code codeSystem="local" code="CMETHOD" displayName="METHOD" /> <statusCode code="completed" /> <effectiveTime value= "295014821837" /> <value unit="" xsi:type="PQ" value="Bedside" /> <referenceRange> <observationRange> <text /> </observationRange> </referenceRange> </observation> </component> <component> <observation moodCode="EVN" classCode="OBS "> <templateId root="11.24.840.1.246436.10..22.4.2" /> <id nullFlavor="NA" /> <code codeSystem="local" code="TROPI" displayName= "TROPONIN I" /> <statusCode code="completed" /> < effectiveTime value="471975062963" /> <value unit="ng/mL" xsi:type="PQ " value="< 0.04" /> <referenceRange> <observationRange> <text>< 0.11</text> </observationRange> </ referenceRange> </observation> </component> </organizer> </entry > <entry> <organizer moodCode="EVN" classCode="BATTERY"> <templateId root="216.840.1.160137.10..22.4.1" /> <id nullFlavor="NA" /> <code codeSystem="local" code="iCHEM8" displayName="CHEM/HEM PROFILE-BEDSIDE" /> <statusCode code="completed" /> <component> <observation moodCode= "EVN" classCode="OBS"> <templateId root="216.840.1.647505.10..22.4.2 " /> <id nullFlavor="NA" /> <code codeSystem="local" code="K" displayName="POTASSIUM" /> <statusCode code="completed" /> < effectiveTime value="773765771370" /> <value unit="mmol/L" xsi:type="PQ " value="3.7" /> <referenceRange> <observationRange> <text>3.5-5.3</text> </observationRange> </ referenceRange> </observation> </component> <component> <observation moodCode="EVN" classCode="OBS"> <templateId root= "16.840.1.324495.10..22.4.2" /> <id nullFlavor="NA" /> < code codeSystem="local" code="CMETHOD" displayName="METHOD" /> < statusCode code="completed" /> <effectiveTime value="" /> <value unit="" xsi:type="PQ" value="Bedside" /> < referenceRange> <observationRange> <text /> < /observationRange> </referenceRange> </observation> </ component> <component> <observation moodCode="EVN" classCode="OBS"> <templateId root="16.840.1.054139.07.28.22.4.2" /> <id nullFlavor="NA" /> <code codeSystem="local" code="GAP" displayName= "ANION GAP" /> <statusCode code="completed" /> <effectiveTime value="" /> <value unit="mmol/L" xsi:type="PQ" value="19" / > <referenceRange> <observationRange> <text>10- 20</text> </observationRange> </referenceRange> </ observation> </component> <component> <observation moodCode= "EVN" classCode="OBS"> <templateId root="11.24.840.1.178194.07.28.22.4.2 " /> <id nullFlavor="NA" /> <code codeSystem="local" code= "HMETHOD" displayName="METHOD" /> <statusCode code="completed" /> <effectiveTime value="" /> <value unit="" xsi:type="PQ " value="Bedside" /> <referenceRange> <observationRange> <text /> </observationRange> </referenceRange> </observation> </component> <component> <observation moodCode="EVN" classCode="OBS"> <templateId root= "11.24.840.1.078653.22.4.2" /> <id nullFlavor="NA" /> < code codeSystem="local" code="GLU" displayName="GLUCOSE" /> < statusCode code="completed" /> <effectiveTime value="" /> <value unit="mg/dL" xsi:type="PQ" value="204" /> < interpretationCode codeSystem="local" code="*" /> <referenceRange> <observationRange> <text>70-99</text> </ observationRange> </referenceRange> </observation> </ component> <component> <observation moodCode="EVN" classCode="OBS"> <templateId root="216.840.1.862785.10..22.4.2" /> <id nullFlavor="NA" /> <code codeSystem="local" code="BUN" displayName= "BLOOD UREA NITROGEN" /> <statusCode code="completed" /> < effectiveTime value="244997716997" /> <value unit="mg/dL" xsi:type="PQ " value="9" /> <referenceRange> <observationRange> <text>7-20</text> </observationRange> </referenceRange > </observation> </component> <component> <observation moodCode="EVN" classCode="OBS"> <templateId root= "216.840.1.714605.10.20.22.4.2" /> <id nullFlavor="NA" /> < code codeSystem="local" code="CREAT" displayName="CREATININE" /> < statusCode code="completed" /> <effectiveTime value="675984729367" /> <value unit="mg/dL" xsi:type="PQ" value="0.7" /> < referenceRange> <observationRange> <text>0.6-1.0</text> </observationRange> </referenceRange> </observation > </component> <component> <observation moodCode="EVN" classCode="OBS"> <templateId root="216.840.1.684070.22.4.2" /> <id nullFlavor="NA" /> <code codeSystem="local" code="HGBT" displayName="HEMOGLOBIN" /> <statusCode code="completed" /> < effectiveTime value="615051923350" /> <value unit="gm/dL" xsi:type="PQ " value="13.6" /> <referenceRange> <observationRange> <text>12.0-16.0</text> </observationRange> </ referenceRange> </observation> </component> <component> <observation moodCode="EVN" classCode="OBS"> <templateId root= "2.16.840.1.297863.07.28.22.4.2" /> <id nullFlavor="NA" /> < code codeSystem="local" code="HCTT" displayName="HEMATOCRIT" /> < statusCode code="completed" /> <effectiveTime value="" /> <value unit="%" xsi:type="PQ" value="40.0" /> < referenceRange> <observationRange> <text>37.0-47.0</text > </observationRange> </referenceRange> </observation > </component> <component> <observation moodCode="EVN" classCode="OBS"> <templateId root="216.840.1.117534..22.4.2" /> <id nullFlavor="NA" /> <code codeSystem="local" code="NA" displayName="SODIUM" /> <statusCode code="completed" /> < effectiveTime value="539223041765" /> <value unit="mmol/L" xsi:type="PQ " value="142" /> <referenceRange> <observationRange> <text>135-148</text> </observationRange> </ referenceRange> </observation> </component> <component> <observation moodCode="EVN" classCode="OBS"> <templateId root= "216.840.1.650168.10..22.4.2" /> <id nullFlavor="NA" /> < code codeSystem="local" code="CL" displayName="CHLORIDE" /> < statusCode code="completed" /> <effectiveTime value="" /> <value unit="mmol/L" xsi:type="PQ" value="100" /> < referenceRange> <observationRange> <text>98-110</text> </observationRange> </referenceRange> </observation> </component> <component> <observation moodCode="EVN" classCode ="OBS"> <templateId root="16.840.1.145854.10...4.2" /> < id nullFlavor="NA" /> <code codeSystem="local" code="CO2" displayName= "CARBON DIOXIDE" /> <statusCode code="completed" /> < effectiveTime value="" /> <value unit="mmol/L" xsi:type="PQ " value="28" /> <referenceRange> <observationRange> <text>21-32</text> </observationRange> </ referenceRange> </observation> </component> <component> <observation moodCode="EVN" classCode="OBS"> <templateId root= "16.840.1.498748.10..22.4.2" /> <id nullFlavor="NA" /> < code codeSystem="local" code="CAION" displayName="CALCIUM IONIZED" /> < statusCode code="completed" /> <effectiveTime value="" /> <value unit="mg/dL" xsi:type="PQ" value="4.7" /> < referenceRange> <observationRange> <text>4.5-5.3</text> </observationRange> </referenceRange> </observation > </component> </organizer> </entry> <entry> <organizer moodCode= "EVN" classCode="BATTERY"> <templateId root="2.16.840.1.120381.10..22.4.1 " /> <id nullFlavor="NA" /> <code codeSystem="local" code="iTROPI" displayName="TROPONIN I BEDSIDE" /> <statusCode code="completed" /> < component> <observation moodCode="EVN" classCode="OBS"> < templateId root="2.16.840.1.883465.10...4.2" /> <id nullFlavor="NA " /> <code codeSystem="local" code="CMETHOD" displayName="METHOD" /> <statusCode code="completed" /> <effectiveTime value= "670590359551" /> <value unit="" xsi:type="PQ" value="Bedside" /> <referenceRange> <observationRange> <text /> </observationRange> </referenceRange> </observation> </component> <component> <observation moodCode="EVN" classCode="OBS "> <templateId root="2.16.840.1.058484.10..22.4.2" /> <id nullFlavor="NA" /> <code codeSystem="local" code="TROPI" displayName= "TROPONIN I" /> <statusCode code="completed" /> < effectiveTime value="763530888081" /> <value unit="ng/mL" xsi:type="PQ " value="< 0.04" /> <referenceRange> <observationRange> <text>< 0.11</text> </observationRange> </ referenceRange> </observation> </component> </organizer> </entry > <entry> <organizer moodCode="EVN" classCode="BATTERY"> <templateId root="2.16.840.1.000055.10..22.4.1" /> <id nullFlavor="NA" /> <code codeSystem="local" code="STREPA" displayName="STREP THROAT SCREEN (GROUP A) - STREP THROAT CULTURE (GROUP A)" /> <statusCode code="completed" /> < component> <observation moodCode="EVN" classCode="OBS"> < templateId root="2.16.840.1.670092.10..22.4.2" /> <id nullFlavor="NA " /> <code codeSystem="local" code="MB" displayName="Microbiology" /> <statusCode code="completed" /> <effectiveTime value= "383569969694" /> <value xsi:type="ST" value="<pre><b>STREP THROAT SCREEN (GROUP A) - STREP THROAT CULTURE (GROUP A)</b> See BelowSTREP THROAT SCREEN (GROUP A)(F) Vero Date/Time: 09/09/2017 16:55 Cj Date/Time: 09/12/2017 12:00SOURCE: THROATSPEC DESC: GROUP A STREPNEGATIVELOMA [facility] [place], [place] [address]See BelowSTREP THROAT CULTURE (GROUP A)(F) Vero Date/Time: 09/09/2017 16: 55 Cj Date/Time: 09/12/2017 12:00SOURCE: THROATSPEC DESC: NNO GROUP A STREPTOCOCCUS ISOLATEDSANFORD HILLSBOR[facility]ENTER[address] [place] [id number]</pre>" /> <referenceRange> < observationRange> <text /> </observationRange> </referenceRange> </observation> </component> </organizer> </ entry> <entry> <organizer moodCode="EVN" classCode="BATTERY"> < templateId root="2.16.840.1.013700...22.4.1" /> <id nullFlavor="NA" /> <code codeSystem="local" code="CBCWD" displayName="CBC With Platelet and Differential" /> <statusCode code="completed" /> <component> < observation moodCode="EVN" classCode="OBS"> <templateId root= "11.24.840.1.152205...4.2" /> <id nullFlavor="NA" /> < code codeSystem="local" code="ABASR" displayName="Absolute Basophils" /> <statusCode code="completed" /> <effectiveTime value="" /> <value unit="10*3/uL" xsi:type="PQ" value="0.01" /> < referenceRange> <observationRange> <text>0.00-0.20</text > </observationRange> </referenceRange> </observation > </component> <component> <observation moodCode="EVN" classCode="OBS"> <templateId root="840.1.838401.07.28.22.4.2" /> <id nullFlavor="NA" /> <code codeSystem="local" code="AEOSR" displayName="Absolute Eosinophils" /> <statusCode code="completed" /> <effectiveTime value="" /> <value unit="10*3/uL" xsi:type="PQ" value="0.08" /> <referenceRange> < observationRange> <text>0.00-0.50</text> </ observationRange> </referenceRange> </observation> </ component> <component> <observation moodCode="EVN" classCode="OBS"> <templateId root="[id number]" /> <id nullFlavor="NA" /> <code codeSystem="local" code="ALYMR" displayName= "Absolute Lymphocytes" /> <statusCode code="completed" /> < effectiveTime value="" /> <value unit="10*3/uL" xsi:type= "PQ" value="2.68" /> <referenceRange> <observationRange> <text>0.80-3.30</text> </observationRange> </ referenceRange> </observation> </component> <component> <observation moodCode="EVN" classCode="OBS"> <templateId root= "216.840.1.344897.10..22.4.2" /> <id nullFlavor="NA" /> < code codeSystem="local" code="AMONR" displayName="Absolute Monocytes" /> <statusCode code="completed" /> <effectiveTime value="" /> <value unit="10*3/uL" xsi:type="PQ" value="0.27" /> < interpretationCode codeSystem="local" code="*" /> <referenceRange> <observationRange> <text>0.30-1.00</text> </ observationRange> </referenceRange> </observation> </ component> <component> <observation moodCode="EVN" classCode="OBS"> <templateId root="16.840.1.091018.10.22.4.2" /> <id nullFlavor="NA" /> <code codeSystem="local" code="ASEGR" displayName= "Absolute Neutrophils" /> <statusCode code="completed" /> < effectiveTime value="" /> <value unit="10*3/uL" xsi:type= "PQ" value="3.81" /> <referenceRange> <observationRange> <text>1.90-7.00</text> </observationRange> </ referenceRange> </observation> </component> <component> <observation moodCode="EVN" classCode="OBS"> <templateId root= "216.840.1.677256.10.20.22.4.2" /> <id nullFlavor="NA" /> < code codeSystem="local" code="BASOR" displayName="Basophils" /> < statusCode code="completed" /> <effectiveTime value="" /> <value unit="%" xsi:type="PQ" value="0" /> <referenceRange > <observationRange> <text>0-2</text> </ observationRange> </referenceRange> </observation> </ component> <component> <observation moodCode="EVN" classCode="OBS"> <templateId root="216.840.1.869278.10.22.4.2" /> <id nullFlavor="NA" /> <code codeSystem="local" code="EOSR" displayName= "Eosinophils" /> <statusCode code="completed" /> < effectiveTime value="" /> <value unit="%" xsi:type="PQ " value="1" /> <referenceRange> <observationRange> <text>0-4</text> </observationRange> </referenceRange> </observation> </component> <component> <observation moodCode="EVN" classCode="OBS"> <templateId root= "16.840.1.477032.10.2022.4.2" /> <id nullFlavor="NA" /> < code codeSystem="local" code="HCT" displayName="HCT" /> <statusCode code="completed" /> <effectiveTime value="" /> < value unit="%" xsi:type="PQ" value="38.3" /> <referenceRange> <observationRange> <text>37.0-47.0</text> </ observationRange> </referenceRange> </observation> </ component> <component> <observation moodCode="EVN" classCode="OBS"> <templateId root="216.840.1.769495.10..4.2" /> <id nullFlavor="NA" /> <code codeSystem="local" code="HGB" displayName="HGB " /> <statusCode code="completed" /> <effectiveTime value= "[id number]" /> <value unit="g/dL" xsi:type="PQ" value="12.3" /> <referenceRange> <observationRange> <text>12.0- 16.0</text> </observationRange> </referenceRange> </ observation> </component> <component> <observation moodCode= "EVN" classCode="OBS"> <templateId root="11.24.840.1.781765.07.28.224.2 " /> <id nullFlavor="NA" /> <code codeSystem="local" code= "IMGA" displayName="Immature Granulocytes" /> <statusCode code= "completed" /> <effectiveTime value="[id number]" /> <value unit="%" xsi:type="PQ" value="0.1" /> <referenceRange> < observationRange> <text>0.0-1.0</text> </ observationRange> </referenceRange> </observation> </ component> <component> <observation moodCode="EVN" classCode="OBS"> <templateId root="11.24.840.1.509943...4.2" /> <id nullFlavor="NA" /> <code codeSystem="local" code="LYMPR" displayName= "Lymphocytes" /> <statusCode code="completed" /> < effectiveTime value="" /> <value unit="%" xsi:type="PQ " value="39" /> <referenceRange> <observationRange> <text>20-46</text> </observationRange> </ referenceRange> </observation> </component> <component> <observation moodCode="EVN" classCode="OBS"> <templateId root= "216.840.1.263503.10..22.4.2" /> <id nullFlavor="NA" /> < code codeSystem="local" code="MCH" displayName="MCH" /> <statusCode code="completed" /> <effectiveTime value="" /> < value unit="pg" xsi:type="PQ" value="28.4" /> <referenceRange> <observationRange> <text>27.0-32.0</text> </ observationRange> </referenceRange> </observation> </ component> <component> <observation moodCode="EVN" classCode="OBS"> <templateId root="216.840.1.354644...4.2" /> <id nullFlavor="NA" /> <code codeSystem="local" code="MCHC" displayName= "MCHC" /> <statusCode code="completed" /> <effectiveTime value ="" /> <value unit="g/dL" xsi:type="PQ" value="32.1" /> <referenceRange> <observationRange> <text>32.0- 36.0</text> </observationRange> </referenceRange> </ observation> </component> <component> <observation moodCode= "EVN" classCode="OBS"> <templateId root="216.840.1.111231.10.20.22.4.2 " /> <id nullFlavor="NA" /> <code codeSystem="local" code="MCV " displayName="MCV" /> <statusCode code="completed" /> < effectiveTime value="" /> <value unit="fL" xsi:type="PQ" value="88.5" /> <referenceRange> <observationRange> <text>82.0-99.0</text> </observationRange> </ referenceRange> </observation> </component> <component> <observation moodCode="EVN" classCode="OBS"> <templateId root= "11.24.840.1.844717.10.20.22.4.2" /> <id nullFlavor="NA" /> < code codeSystem="local" code="MONOR" displayName="Monocytes" /> < statusCode code="completed" /> <effectiveTime value="" /> <value unit="%" xsi:type="PQ" value="4" /> <referenceRange > <observationRange> <text>4-11</text> </ observationRange> </referenceRange> </observation> </ component> <component> <observation moodCode="EVN" classCode="OBS"> <templateId root="11.24.840.1.876356.10.20.22.4.2" /> <id nullFlavor="NA" /> <code codeSystem="local" code="MPV" displayName="MPV " /> <statusCode code="completed" /> <effectiveTime value= "[id number]" /> <value unit="fL" xsi:type="PQ" value="9.7" /> <referenceRange> <observationRange> <text>9.4-12.4</ text> </observationRange> </referenceRange> </ observation> </component> <component> <observation moodCode= "EVN" classCode="OBS"> <templateId root="11.24.840.1.364851.07.28.22.4.2 " /> <id nullFlavor="NA" /> <code codeSystem="local" code= "SEGR" displayName="Neutrophils" /> <statusCode code="completed" /> <effectiveTime value="" /> <value unit="%" xsi: type="PQ" value="56" /> <referenceRange> <observationRange> <text>51-75</text> </observationRange> </ referenceRange> </observation> </component> <component> <observation moodCode="EVN" classCode="OBS"> <templateId root= "216.840.1.250834.07.28.22.4.2" /> <id nullFlavor="NA" /> < code codeSystem="local" code="NRBCA" displayName="Nucleated RBC Automated" /> <statusCode code="completed" /> <effectiveTime value= "" /> <value unit="/100WBC" xsi:type="PQ" value="0.0" /> <referenceRange> <observationRange> <text /> </observationRange> </referenceRange> </observation> </component> <component> <observation moodCode="EVN" classCode= "OBS"> <templateId root="216.840.1.545885.07.28.22.4.2" /> < id nullFlavor="NA" /> <code codeSystem="local" code="PLT" displayName= "Platelet Count" /> <statusCode code="completed" /> < effectiveTime value="" /> <value unit="K/uL" xsi:type="PQ" value="272" /> <referenceRange> <observationRange> <text>150-400</text> </observationRange> </ referenceRange> </observation> </component> <component> <observation moodCode="EVN" classCode="OBS"> <templateId root= "16.840.1.144013.10..22.4.2" /> <id nullFlavor="NA" /> < code codeSystem="local" code="RBC" displayName="RBC" /> <statusCode code="completed" /> <effectiveTime value="" /> < value unit="10*6/uL" xsi:type="PQ" value="4.33" /> <referenceRange> <observationRange> <text>4.00-5.20</text> </ observationRange> </referenceRange> </observation> </ component> <component> <observation moodCode="EVN" classCode="OBS"> <templateId root="11.24.840.1.090287...22.4.2" /> <id nullFlavor="NA" /> <code codeSystem="local" code="RDW" displayName="RDW " /> <statusCode code="completed" /> <effectiveTime value= "" /> <value unit="%" xsi:type="PQ" value="13.3" /> <referenceRange> <observationRange> <text>11.5- 14.5</text> </observationRange> </referenceRange> </ observation> </component> <component> <observation moodCode= "EVN" classCode="OBS"> <templateId root="11.24.840.1.667527.10.20.22.4.2 " /> <id nullFlavor="NA" /> <code codeSystem="local" code= "WBCIR" displayName="WBC" /> <statusCode code="completed" /> < effectiveTime value="" /> <value unit="K/uL" xsi:type="PQ" value="6.9" /> <referenceRange> <observationRange> <text>4.8-10.8</text> </observationRange> </ referenceRange> </observation> </component> </organizer> </entry > <entry> <organizer moodCode="EVN" classCode="BATTERY"> <templateId root="11.24.840.1.774510.10..22.4.1" /> <id nullFlavor="NA" /> <code codeSystem="local" code="TROP" displayName="Troponin" /> <statusCode code= "completed" /> <component> <observation moodCode="EVN" classCode= "OBS"> <templateId root="840.1.237085.07.28.22.4.2" /> < id nullFlavor="NA" /> <code codeSystem="local" code="TROP" displayName= "Troponin" /> <statusCode code="completed" /> <effectiveTime value="369870793388" /> <value unit="ng/mL" xsi:type="PQ" value="< 0.05" /> <referenceRange> <observationRange> < text><0.06</text> </observationRange> </referenceRange> </observation> </component> </organizer> </entry> <entry> < organizer moodCode="EVN" classCode="BATTERY"> <templateId root= "11.24.840.1.677744.22.4.1" /> <id nullFlavor="NA" /> <code codeSystem="local" code="CMP" displayName="Comprehensive Metabolic Panel (CMP)" /> <statusCode code="completed" /> <component> <observation moodCode="EVN" classCode="OBS"> <templateId root= "11.24.840.1.411534.10..22.4.2" /> <id nullFlavor="NA" /> < code codeSystem="local" code="ALB" displayName="Albumin" /> < statusCode code="completed" /> <effectiveTime value="745731357902" /> <value unit="g/dL" xsi:type="PQ" value="4.0" /> < referenceRange> <observationRange> <text>3.5-4.8</text> </observationRange> </referenceRange> </observation > </component> <component> <observation moodCode="EVN" classCode="OBS"> <templateId root="11.24.840.1.578538.10.20.22.4.2" /> <id nullFlavor="NA" /> <code codeSystem="local" code="ALP" displayName="Alkaline Phosphatase" /> <statusCode code="completed" /> <effectiveTime value="017479105834" /> <value unit="U/L" xsi: type="PQ" value="83" /> <referenceRange> <observationRange> <text>26-104</text> </observationRange> </ referenceRange> </observation> </component> <component> <observation moodCode="EVN" classCode="OBS"> <templateId root= "11.24.840.1.210067.10.20.22.4.2" /> <id nullFlavor="NA" /> < code codeSystem="local" code="ALT" displayName="ALT (SGPT)" /> < statusCode code="completed" /> <effectiveTime value="466830611966" /> <value unit="U/L" xsi:type="PQ" value="14" /> <referenceRange > <observationRange> <text>14-54</text> </ observationRange> </referenceRange> </observation> </ component> <component> <observation moodCode="EVN" classCode="OBS"> <templateId root="840.1.621842.10.22.4.2" /> <id nullFlavor="NA" /> <code codeSystem="local" code="AGAP" displayName= "Anion Gap" /> <statusCode code="completed" /> <effectiveTime value="140466587190" /> <value unit="mEq/L" xsi:type="PQ" value="9" /> <referenceRange> <observationRange> <text>3-20 </text> </observationRange> </referenceRange> </ observation> </component> <component> <observation moodCode= "EVN" classCode="OBS"> <templateId root="216.840.1.496974.07.28.22.4.2 " /> <id nullFlavor="NA" /> <code codeSystem="local" code="AST " displayName="AST (SGOT)" /> <statusCode code="completed" /> <effectiveTime value="552757044458" /> <value unit="U/L" xsi:type="PQ" value="16" /> <referenceRange> <observationRange> <text>15-41</text> </observationRange> </referenceRange > </observation> </component> <component> <observation moodCode="EVN" classCode="OBS"> <templateId root= "216.840.1.747709.22.4.2" /> <id nullFlavor="NA" /> < code codeSystem="local" code="BILIT" displayName="Bilirubin Total" /> < statusCode code="completed" /> <effectiveTime value="464726211101" /> <value unit="mg/dL" xsi:type="PQ" value="0.8" /> < referenceRange> <observationRange> <text>0.2-1.2</text> </observationRange> </referenceRange> </observation > </component> <component> <observation moodCode="EVN" classCode="OBS"> <templateId root="216.840.1.280742..22.4.2" /> <id nullFlavor="NA" /> <code codeSystem="local" code="BUN" displayName="BUN" /> <statusCode code="completed" /> < effectiveTime value="858513189828" /> <value unit="mg/dL" xsi:type="PQ " value="5" /> <referenceRange> <observationRange> <text>4-20</text> </observationRange> </referenceRange > </observation> </component> <component> <observation moodCode="EVN" classCode="OBS"> <templateId root= "16.840.1.061411.07.28.22.4.2" /> <id nullFlavor="NA" /> < code codeSystem="local" code="CA" displayName="Calcium" /> <statusCode code="completed" /> <effectiveTime value="716594427561" /> < value unit="mg/dL" xsi:type="PQ" value="9.3" /> <referenceRange> <observationRange> <text>8.6-10.0</text> </ observationRange> </referenceRange> </observation> </ component> <component> <observation moodCode="EVN" classCode="OBS"> <templateId root="11.24.840.1.606081.10.22.4.2" /> <id nullFlavor="NA" /> <code codeSystem="local" code="CL" displayName= "Chloride" /> <statusCode code="completed" /> <effectiveTime value="341918783770" /> <value unit="mEq/L" xsi:type="PQ" value="103" / > <referenceRange> <observationRange> <text>99- 109</text> </observationRange> </referenceRange> </ observation> </component> <component> <observation moodCode= "EVN" classCode="OBS"> <templateId root="16.840.1.139726.10.4.2 " /> <id nullFlavor="NA" /> <code codeSystem="local" code="CO2 " displayName="CO2" /> <statusCode code="completed" /> < effectiveTime value="322404268330" /> <value unit="mEq/L" xsi:type="PQ " value="25" /> <referenceRange> <observationRange> <text>22-32</text> </observationRange> </ referenceRange> </observation> </component> <component> <observation moodCode="EVN" classCode="OBS"> <templateId root= "11.24.840.1.170888.07.28.22.4.2" /> <id nullFlavor="NA" /> < code codeSystem="local" code="CREAT" displayName="Creatinine" /> < statusCode code="completed" /> <effectiveTime value="160076072880" /> <value unit="mg/dL" xsi:type="PQ" value="0.54" /> < referenceRange> <observationRange> <text>0.44-1.03</text > </observationRange> </referenceRange> </observation > </component> <component> <observation moodCode="EVN" classCode="OBS"> <templateId root="11.24.840.1.490515...4.2" /> <id nullFlavor="NA" /> <code codeSystem="local" code="GLOB" displayName="Globulin" /> <statusCode code="completed" /> < effectiveTime value="103091676574" /> <value unit="g/dL" xsi:type="PQ" value="3.6" /> <referenceRange> <observationRange> <text>1.9-4.3</text> </observationRange> </ referenceRange> </observation> </component> <component> <observation moodCode="EVN" classCode="OBS"> <templateId root= "11.24.840.1.818158.10..22.4.2" /> <id nullFlavor="NA" /> < code codeSystem="local" code="GLU" displayName="Glucose" /> < statusCode code="completed" /> <effectiveTime value="838684348993" /> <value unit="mg/dL" xsi:type="PQ" value="99" /> < referenceRange> <observationRange> <text>70-100</text> </observationRange> </referenceRange> </observation> </component> <component> <observation moodCode="EVN" classCode ="OBS"> <templateId root="11.24.840.1.850864.10...4.2" /> < id nullFlavor="NA" /> <code codeSystem="local" code="K" displayName= "Potassium" /> <statusCode code="completed" /> <effectiveTime value="109828616782" /> <value unit="mEq/L" xsi:type="PQ" value="3.3" / > <interpretationCode codeSystem="local" code="*" /> < referenceRange> <observationRange> <text>3.6-5.1</text> </observationRange> </referenceRange> </observation > </component> <component> <observation moodCode="EVN" classCode="OBS"> <templateId root="11.24.840.1.057824.10..22.4.2" /> <id nullFlavor="NA" /> <code codeSystem="local" code="TP" displayName="Protein" /> <statusCode code="completed" /> < effectiveTime value="857787168577" /> <value unit="g/dL" xsi:type="PQ" value="7.6" /> <referenceRange> <observationRange> <text>6.1-7.9</text> </observationRange> </ referenceRange> </observation> </component> <component> <observation moodCode="EVN" classCode="OBS"> <templateId root= "11.24.840.1.220738.07.28.224.2" /> <id nullFlavor="NA" /> < code codeSystem="local" code="NA" displayName="Sodium" /> <statusCode code="completed" /> <effectiveTime value="990778047574" /> < value unit="mEq/L" xsi:type="PQ" value="137" /> <referenceRange> <observationRange> <text>136-144</text> </ observationRange> </referenceRange> </observation> </ component> </organizer> </entry> <entry> <organizer moodCode="EVN" classCode="BATTERY"> <templateId root="11.24.840.1.336779.07.28.22.4.1" /> <id nullFlavor="NA" /> <code codeSystem="local" code="GFR" displayName ="eGFR" /> <statusCode code="completed" /> <component> < observation moodCode="EVN" classCode="OBS"> <templateId root= "11.24.840.1.877960.07.28.22.4.2" /> <id nullFlavor="NA" /> < code codeSystem="local" code="GFR" displayName="eGFR" /> <statusCode code="completed" /> <effectiveTime value="941229141705" /> < value unit="mL/min" xsi:type="PQ" value=">60" /> <referenceRange> <observationRange> <text>>60</text> </ observationRange> </referenceRange> </observation> </ component> </organizer> </entry> <entry> <organizer moodCode="EVN" classCode="BATTERY"> <templateId root="11.24.840.1.066206.10.4.1" /> <id nullFlavor="NA" /> <code codeSystem="local" code="TSH" displayName ="TSH" /> <statusCode code="completed" /> <component> < observation moodCode="EVN" classCode="OBS"> <templateId root= "11.24.840.1.377584.10...4.2" /> <id nullFlavor="NA" /> < code codeSystem="local" code="TSH" displayName="TSH" /> <statusCode code="completed" /> <effectiveTime value="852420253881" /> < value unit="uIU/mL" xsi:type="PQ" value="1.30" /> <referenceRange> <observationRange> <text>0.35-5.50</text> </ observationRange> </referenceRange> </observation> </ component> </organizer> </entry> <entry> <organizer moodCode="EVN" classCode="BATTERY"> <templateId root="11.24.840.1.104870.10..4.1" /> <id nullFlavor="NA" /> <code codeSystem="local" code="LIPID" displayName="Lipid Panel" /> <statusCode code="completed" /> < component> <observation moodCode="EVN" classCode="OBS"> < templateId root="840.1.866779.10.20.22.4.2" /> <id nullFlavor="NA " /> <code codeSystem="local" code="CHR" displayName="Cardiac Risk" /> <statusCode code="completed" /> <effectiveTime value= "657457371729" /> <value unit="" xsi:type="PQ" value="7.7" /> <interpretationCode codeSystem="local" code="*" /> <referenceRange> <observationRange> <text>0.0-5.0</text> </ observationRange> </referenceRange> </observation> </ component> <component> <observation moodCode="EVN" classCode="OBS"> <templateId root="11.24.840.1.874191.10..22.4.2" /> <id nullFlavor="NA" /> <code codeSystem="local" code="CHOL" displayName= "Cholesterol" /> <statusCode code="completed" /> < effectiveTime value="539718321183" /> <value unit="mg/dL" xsi:type="PQ " value="292" /> <interpretationCode codeSystem="local" code="*" /> <referenceRange> <observationRange> <text>0-199</ text> </observationRange> </referenceRange> </ observation> </component> <component> <observation moodCode= "EVN" classCode="OBS"> <templateId root="11.24.840.1.166147.10..22.4.2 " /> <id nullFlavor="NA" /> <code codeSystem="local" code="HDL " displayName="HDL Cholesterol" /> <statusCode code="completed" /> <effectiveTime value="800556784068" /> <value unit="mg/dL" xsi: type="PQ" value="38" /> <interpretationCode codeSystem="local" code="* " /> <referenceRange> <observationRange> <text> 40-84</text> </observationRange> </referenceRange> </ observation> </component> <component> <observation moodCode= "EVN" classCode="OBS"> <templateId root="11.24.840.1.676571.10.20.22.4.2 " /> <id nullFlavor="NA" /> <code codeSystem="local" code="LDL " displayName="LDL Cholesterol" /> <statusCode code="completed" /> <effectiveTime value="396427067480" /> <value unit="mg/dL" xsi: type="PQ" value="199" /> <interpretationCode codeSystem="local" code="* " /> <referenceRange> <observationRange> <text> 0-130</text> </observationRange> </referenceRange> </ observation> </component> <component> <observation moodCode= "EVN" classCode="OBS"> <templateId root="11.24.840.1.360556.10..4.2 " /> <id nullFlavor="NA" /> <code codeSystem="local" code= "TRIG" displayName="Triglycerides" /> <statusCode code="completed" /> <effectiveTime value="194644655431" /> <value unit="mg/dL" xsi :type="PQ" value="275" /> <interpretationCode codeSystem="local" code= "*" /> <referenceRange> <observationRange> < text>0-149</text> </observationRange> </referenceRange> </observation> </component> <component> <observation moodCode="EVN" classCode="OBS"> <templateId root= "11.24.840.1.835903.10.20.22.4.2" /> <id nullFlavor="NA" /> < code codeSystem="local" code="VLDL" displayName="VLDL Cholesterol" /> < statusCode code="completed" /> <effectiveTime value="584009888377" /> <value unit="mg/dL" xsi:type="PQ" value="55" /> < interpretationCode codeSystem="local" code="*" /> <referenceRange> <observationRange> <text>0-28</text> </ observationRange> </referenceRange> </observation> </ component> </organizer> </entry> <entry> <organizer moodCode="EVN" classCode="BATTERY"> <templateId root="16.840.1.657564.10.22.4.1" /> <id nullFlavor="NA" /> <code codeSystem="local" code="HA1C" displayName="Hemoglobin A1C" /> <statusCode code="completed" /> < component> <observation moodCode="EVN" classCode="OBS"> < templateId root="16.840.1.937194.10..22.4.2" /> <id nullFlavor="NA " /> <code codeSystem="local" code="HA1C" displayName="Hemoglobin A1C" /> <statusCode code="completed" /> <effectiveTime value= "998108124257" /> <value unit="%" xsi:type="PQ" value="6.6" /> <interpretationCode codeSystem="local" code="*" /> < referenceRange> <observationRange> <text>4.1-5.6</text> </observationRange> </referenceRange> </observation > </component> </organizer> </entry> <entry> <organizer moodCode= "EVN" classCode="BATTERY"> <templateId root="16.840.1.778891..2022.4.1 " /> <id nullFlavor="NA" /> <code codeSystem="local" code="EAG" displayName="Estimated Average Glucose" /> <statusCode code="completed" /> <component> <observation moodCode="EVN" classCode="OBS"> < templateId root="2.16.840.1.819217.10..22.4.2" /> <id nullFlavor="NA " /> <code codeSystem="local" code="EAG" displayName="Estimated Average Glucose" /> <statusCode code="completed" /> < effectiveTime value="171856661031" /> <value unit="mg/dL" xsi:type="PQ " value="142.7" /> <referenceRange> <observationRange> <text /> </observationRange> </referenceRange> </observation> </component> </organizer> </entry> <entry> < organizer moodCode="EVN" classCode="BATTERY"> <templateId root= "216.840.1.350434.10..22.4.1" /> <id nullFlavor="NA" /> <code codeSystem="local" code="TROP" displayName="Troponin" /> <statusCode code= "completed" /> <component> <observation moodCode="EVN" classCode= "OBS"> <templateId root="216.840.1.751625.10..22.4.2" /> < id nullFlavor="NA" /> <code codeSystem="local" code="TROP" displayName= "Troponin" /> <statusCode code="completed" /> <effectiveTime value="424567306949" /> <value unit="ng/mL" xsi:type="PQ" value="< 0.05" /> <referenceRange> <observationRange> < text><0.06</text> </observationRange> </referenceRange> </observation> </component> </organizer> </entry> <entry> < organizer moodCode="EVN" classCode="BATTERY"> <templateId root= "840.1.557780.07.28.22.4.1" /> <id nullFlavor="NA" /> <code codeSystem="local" code="TROP" displayName="Troponin" /> <statusCode code= "completed" /> <component> <observation moodCode="EVN" classCode= "OBS"> <templateId root="840.1.577483.07.28.224.2" /> < id nullFlavor="NA" /> <code codeSystem="local" code="TROP" displayName= "Troponin" /> <statusCode code="completed" /> <effectiveTime value="730473193006" /> <value unit="ng/mL" xsi:type="PQ" value="< 0.05" /> <referenceRange> <observationRange> < text><0.06</text> </observationRange> </referenceRange> </observation> </component> </organizer> </entry> <entry> < organizer moodCode="EVN" classCode="BATTERY"> <templateId root= "840.1.879542.07.28.22.4.1" /> <id nullFlavor="NA" /> <code codeSystem="local" code="CBCND" displayName="CBC With Platelet No Differential" /> <statusCode code="completed" /> <component> <observation moodCode="EVN" classCode="OBS"> <templateId root= "840.1.535568.07.28.22.4.2" /> <id nullFlavor="NA" /> < code codeSystem="local" code="HCT" displayName="HCT" /> <statusCode code="completed" /> <effectiveTime value="" /> < value unit="%" xsi:type="PQ" value="37.2" /> <referenceRange> <observationRange> <text>37.0-47.0</text> </ observationRange> </referenceRange> </observation> </ component> <component> <observation moodCode="EVN" classCode="OBS"> <templateId root="11.24.840.1.287100.10.22.4.2" /> <id nullFlavor="NA" /> <code codeSystem="local" code="HGB" displayName="HGB " /> <statusCode code="completed" /> <effectiveTime value= "" /> <value unit="g/dL" xsi:type="PQ" value="11.6" /> <interpretationCode codeSystem="local" code="*" /> < referenceRange> <observationRange> <text>12.0-16.0</text > </observationRange> </referenceRange> </observation > </component> <component> <observation moodCode="EVN" classCode="OBS"> <templateId root="11.24.840.1.441294.07.28.22.4.2" /> <id nullFlavor="NA" /> <code codeSystem="local" code="MCH" displayName="MCH" /> <statusCode code="completed" /> < effectiveTime value="" /> <value unit="pg" xsi:type="PQ" value="28.2" /> <referenceRange> <observationRange> <text>27.0-32.0</text> </observationRange> </ referenceRange> </observation> </component> <component> <observation moodCode="EVN" classCode="OBS"> <templateId root= "11.24.840.1.093903.07.28.22.4.2" /> <id nullFlavor="NA" /> < code codeSystem="local" code="MCHC" displayName="MCHC" /> <statusCode code="completed" /> <effectiveTime value="" /> < value unit="g/dL" xsi:type="PQ" value="31.2" /> <interpretationCode codeSystem="local" code="*" /> <referenceRange> < observationRange> <text>32.0-36.0</text> </ observationRange> </referenceRange> </observation> </ component> <component> <observation moodCode="EVN" classCode="OBS"> <templateId root="216.840.1.454728.07.28.224.2" /> <id nullFlavor="NA" /> <code codeSystem="local" code="MCV" displayName="MCV " /> <statusCode code="completed" /> <effectiveTime value= "" /> <value unit="fL" xsi:type="PQ" value="90.5" /> <referenceRange> <observationRange> <text>82.0-99.0< /text> </observationRange> </referenceRange> </ observation> </component> <component> <observation moodCode= "EVN" classCode="OBS"> <templateId root="216.840.1.383305.10.4.2 " /> <id nullFlavor="NA" /> <code codeSystem="local" code="MPV " displayName="MPV" /> <statusCode code="completed" /> < effectiveTime value="" /> <value unit="fL" xsi:type="PQ" value="9.8" /> <referenceRange> <observationRange> <text>9.4-12.4</text> </observationRange> </ referenceRange> </observation> </component> <component> <observation moodCode="EVN" classCode="OBS"> <templateId root= "11.24.840.1.160513.10.2022.4.2" /> <id nullFlavor="NA" /> < code codeSystem="local" code="PLT" displayName="Platelet Count" /> < statusCode code="completed" /> <effectiveTime value="" /> <value unit="K/uL" xsi:type="PQ" value="254" /> < referenceRange> <observationRange> <text>150-400</text> </observationRange> </referenceRange> </observation > </component> <component> <observation moodCode="EVN" classCode="OBS"> <templateId root="16.840.1.563583.22.4.2" /> <id nullFlavor="NA" /> <code codeSystem="local" code="RBC" displayName="RBC" /> <statusCode code="completed" /> < effectiveTime value="" /> <value unit="10*6/uL" xsi:type= "PQ" value="4.11" /> <referenceRange> <observationRange> <text>4.00-5.20</text> </observationRange> </ referenceRange> </observation> </component> <component> <observation moodCode="EVN" classCode="OBS"> <templateId root= "11.24.840.1.266651.10.20.22.4.2" /> <id nullFlavor="NA" /> < code codeSystem="local" code="RDW" displayName="RDW" /> <statusCode code="completed" /> <effectiveTime value="" /> < value unit="%" xsi:type="PQ" value="13.6" /> <referenceRange> <observationRange> <text>11.5-14.5</text> </ observationRange> </referenceRange> </observation> </ component> <component> <observation moodCode="EVN" classCode="OBS"> <templateId root="11.24.840.1.031246.10.20.22.4.2" /> <id nullFlavor="NA" /> <code codeSystem="local" code="WBCIR" displayName= "WBC" /> <statusCode code="completed" /> <effectiveTime value= "[id number]" /> <value unit="K/uL" xsi:type="PQ" value="6.3" /> <referenceRange> <observationRange> <text>4.8-10.8< /text> </observationRange> </referenceRange> </ observation> </component> </organizer> </entry> <entry> <organizer moodCode="EVN" classCode="BATTERY"> <templateId root= "11.24.840.1.851018.10..22.4.1" /> <id nullFlavor="NA" /> <code codeSystem="local" code="RENAL" displayName="Renal Function Panel" /> < statusCode code="completed" /> <component> <observation moodCode= "EVN" classCode="OBS"> <templateId root="11.24.840.1.945301.10.20.22.4.2 " /> <id nullFlavor="NA" /> <code codeSystem="local" code="ALB " displayName="Albumin" /> <statusCode code="completed" /> < effectiveTime value="[id number]" /> <value unit="g/dL" xsi:type="PQ" value="3.7" /> <referenceRange> <observationRange> <text>3.5-4.8</text> </observationRange> </ referenceRange> </observation> </component> <component> <observation moodCode="EVN" classCode="OBS"> <templateId root= "11.24.840.1.676159.22.4.2" /> <id nullFlavor="NA" /> < code codeSystem="local" code="AGAP" displayName="Anion Gap" /> < statusCode code="completed" /> <effectiveTime value="" /> <value unit="mEq/L" xsi:type="PQ" value="8" /> <referenceRange > <observationRange> <text>3-20</text> </ observationRange> </referenceRange> </observation> </ component> <component> <observation moodCode="EVN" classCode="OBS"> <templateId root="11.24.840.1.802303.07.28.22.4.2" /> <id nullFlavor="NA" /> <code codeSystem="local" code="BUN" displayName="BUN " /> <statusCode code="completed" /> <effectiveTime value= "" /> <value unit="mg/dL" xsi:type="PQ" value="9" /> <referenceRange> <observationRange> <text>4-20</text > </observationRange> </referenceRange> </observation > </component> <component> <observation moodCode="EVN" classCode="OBS"> <templateId root="11.24.840.1.347606.1022.4.2" /> <id nullFlavor="NA" /> <code codeSystem="local" code="CA" displayName="Calcium" /> <statusCode code="completed" /> < effectiveTime value="" /> <value unit="mg/dL" xsi:type="PQ " value="9.0" /> <referenceRange> <observationRange> <text>8.6-10.0</text> </observationRange> </ referenceRange> </observation> </component> <component> <observation moodCode="EVN" classCode="OBS"> <templateId root= "216.840.1.423930.10..4.2" /> <id nullFlavor="NA" /> < code codeSystem="local" code="CL" displayName="Chloride" /> < statusCode code="completed" /> <effectiveTime value="" /> <value unit="mEq/L" xsi:type="PQ" value="106" /> < referenceRange> <observationRange> <text>99-109</text> </observationRange> </referenceRange> </observation> </component> <component> <observation moodCode="EVN" classCode ="OBS"> <templateId root="11.24.840.1.153378.10.4.2" /> < id nullFlavor="NA" /> <code codeSystem="local" code="CO2" displayName= "CO2" /> <statusCode code="completed" /> <effectiveTime value= "" /> <value unit="mEq/L" xsi:type="PQ" value="27" /> <referenceRange> <observationRange> <text>22-32</ text> </observationRange> </referenceRange> </ observation> </component> <component> <observation moodCode= "EVN" classCode="OBS"> <templateId root="11.24.840.1.386899.10..4.2 " /> <id nullFlavor="NA" /> <code codeSystem="local" code= "CREAT" displayName="Creatinine" /> <statusCode code="completed" /> <effectiveTime value="" /> <value unit="mg/dL" xsi: type="PQ" value="0.68" /> <referenceRange> <observationRange > <text>0.44-1.03</text> </observationRange> </ referenceRange> </observation> </component> <component> <observation moodCode="EVN" classCode="OBS"> <templateId root= "16.840.1.641426.22.4.2" /> <id nullFlavor="NA" /> < code codeSystem="local" code="GLU" displayName="Glucose" /> < statusCode code="completed" /> <effectiveTime value="" /> <value unit="mg/dL" xsi:type="PQ" value="121" /> < interpretationCode codeSystem="local" code="*" /> <referenceRange> <observationRange> <text>70-100</text> </ observationRange> </referenceRange> </observation> </ component> <component> <observation moodCode="EVN" classCode="OBS"> <templateId root="16.840.1.639911.07.28.22.4.2" /> <id nullFlavor="NA" /> <code codeSystem="local" code="PHOS" displayName= "Phosphorus" /> <statusCode code="completed" /> < effectiveTime value="" /> <value unit="mg/dL" xsi:type="PQ " value="5.5" /> <interpretationCode codeSystem="local" code="*" /> <referenceRange> <observationRange> <text>2.4-4.7 </text> </observationRange> </referenceRange> </ observation> </component> <component> <observation moodCode= "EVN" classCode="OBS"> <templateId root="11.24.840.1.462337.07.28.22.4.2 " /> <id nullFlavor="NA" /> <code codeSystem="local" code="K" displayName="Potassium" /> <statusCode code="completed" /> < effectiveTime value="[id number]" /> <value unit="mEq/L" xsi:type="PQ " value="3.3" /> <interpretationCode codeSystem="local" code="*" /> <referenceRange> <observationRange> <text>3.6-5.1 </text> </observationRange> </referenceRange> </ observation> </component> <component> <observation moodCode= "EVN" classCode="OBS"> <templateId root="840.1.264196.07.28.22.4.2 " /> <id nullFlavor="NA" /> <code codeSystem="local" code="NA " displayName="Sodium" /> <statusCode code="completed" /> < effectiveTime value="" /> <value unit="mEq/L" xsi:type="PQ " value="141" /> <referenceRange> <observationRange> <text>136-144</text> </observationRange> </ referenceRange> </observation> </component> </organizer> </entry > <entry> <organizer moodCode="EVN" classCode="BATTERY"> <templateId root="840.1.090013.07.28.22.4.1" /> <id nullFlavor="NA" /> <code codeSystem="local" code="GFR" displayName="eGFR" /> <statusCode code= "completed" /> <component> <observation moodCode="EVN" classCode= "OBS"> <templateId root="840.1.561947.22.4.2" /> < id nullFlavor="NA" /> <code codeSystem="local" code="GFR" displayName= "eGFR" /> <statusCode code="completed" /> <effectiveTime value ="[id number]" /> <value unit="mL/min" xsi:type="PQ" value=">60" / > <referenceRange> <observationRange> <text>&gt ;60</text> </observationRange> </referenceRange> </ observation> </component> </organizer> </entry></section> Encounters ACCT No. Visit Date/Time Discharge Status Pt. Type Provider Facility Loc./Unit Complaint [id number] 06/04/2013 12:29:00 06/04/2013 13:48:00 DIS Emergency Angela SAEED, [facility] [id number] 02/16/2013 08:50:00 02/16/2013 12:38:00 DIS Emergency Angela SAEED, [facility] [id number] 02/14/2018 14:47:00 02/15/2018 13:29:00 DIS Outpatient Young Armendariz [facility] J5E CHest Pain/SOB/DM [id number] 07/18/2016 15:34:00 07/18/2016 17:15:00 DIS Emergency Wagner Bowen [facility] on [facility] ED Back Pain [id number] 02/16/2018 05:18:02 Document Registration [id number] 02/15/2018 05:18:27 Document Registration [id number] 02/15/2018 05:18:26 Document Registration [id number] 07/19/2016 05:18:47 Document Registration [id number] 09/09/2017 16:20:00 09/09/2017 17:27:00 DIS Emergency Kvng Tavares DO [facility] W.EDW [id number] 08/24/2013 20:39:00 08/24/2013 22:02:00 DIS Emergency Ortega SAEED, Andi Rivas [facility] W.EDW [id number] 05/25/2013 02:29:00 05/25/2013 03:37:00 DIS Emergency Fabian SAEED, [facility] W.EDW [id number] 09/09/2012 14:57:00 09/09/2012 17:05:00 [facility] [id number] 05/23/2012 11:27:00 05/23/2012 13:44:[id number] 03/15/2018 00:00:00 Document Registration [id number] 04/29/2017 08:45:00 Document Registration [id number] 04/29/2017 08:45:00 Document Registration [id number] 04/29/2017 00:00:00 Document Registration [id number] 11/08/2015 20:11:00 11/08/2015 22:35:00 DIS Emergency Ethan SAEED, [facility] E.ED
[2018-04-29] MEDS ORDERED: VENL-48 (03:53)
[2018-04-29] MEDS ORDERED: KETOROLAC 30 MG/ML VIAL IVP ONE (04:30)
--- NOTE | 2018-04-29 04:34 | ED Upper Extremity ---
General Chief Complaint: Upper Extremity Stated Complaint: L ARM PAIN Nursing Triage Note: c/o L arm pain. starting monday. patient reports pain going down to hand and up to shoulder. patient reports being evaluated here and having x-ray done 1 day prior. patient reports was taking NSAIDs without relief, came back and got script for [place] but the pharmacies were closed. Nursing Sepsis Screen: No Definite Risk Source: patient History of Present Illness Date Seen by Provider: Apr 29, 2018 Time Seen by Provider: 04:00 Initial Comments PT ARRIVES VIA POV C/O SEVERE PAIN IN LEFT ARM SINCE MONDAY NIGHT 04/27/18 PAIN STARTED IN LEFT ELBOW AND GOES ALL UP AND DOWN ENTIRE LEFT ARM FROM SHOULDER TO HAND HAS SLIGHT TINGLING IN LEFT HAND PAIN IS WORSE WITH MOVEMENTS, AND CANNOT SLEEP DUE TO SEVERE PAIN--PAIN IS PROGRESSIVELY GETTING WORSE NO MOTOR DEFICITS NO KNOWN INJURY OR UNUSUAL ACTIVITY NO HISTORY OF SIMILAR NO NECK OR JAW PAIN NO CHEST PAIN OR SHORTNESS OF BREATH NO DIZZINESS NO PALPITATIONS + NAUSEA + SWEATS SEEN IN ER YESTERDAY FOR THIS PROBLEM AND XRAYS WERE DONE AND DID NOT SHOW ANY ACUTE PROCESS WAS TOLD TO TAKE NSAIDS, CAME BACK TO ER LATER AND GOT RX FOR HYDROCODONE, BUT DID NOT FILL IT PHARMACIES WERE CLOSED TOOK NAPROXEN EARLIER THIS EVENING WITHOUT RELIEF STATES PAIN WAS 3-4/10 YESTERDAY, AND IS "10 PLUS" NOW PT ADMITS THAT SHE DOES NOT HAVE ANY TOLERANCE FOR PAIN AT ALL. PT IS HERE VISITING FROM [facility]--GOT HERE YESTERDAY PT STATES SHE HAS A ROUTINE APPOINTMENT WITH HER DR IN [place] [facility] ON Monday Allergies and Home Medications Allergies Coded Allergies: Penicillins (Verified Allergy, Unknown, 04/28/18) aspirin (Verified Allergy, Unknown, 04/28/18) Home Medications Metformin HCl 500 Mg Tablet, 500 MG PO DAILY, (Reported) Patient Home Medication List Home Medication List Reviewed: Yes Constitutional: see HPI, diaphoresis EENTM: no symptoms reported Respiratory: no symptoms reported Cardiovascular: no symptoms reported Gastrointestinal: see HPI, nausea Genitourinary: no symptoms reported Musculoskeletal: see HPI Skin: no symptoms reported Psychiatric/Neurological: See HPI Past Flnfcvk-Wrtzhh-Wvlarq Hx Patient Social History Alcohol Use: Rarely Uses 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) Smoking Status: Current Everyday Smoker (< 1 PPD) Type Used: Cigarettes Recent Foreign Travel: No Contact w/Someone Who Travel: No Recent Infectious Disease Expo: No Recent Hopitalizations: No Past Medical History Surgeries: Yes ( X 3; HYST/BSO; MENISCUS REPAIR X 3--EACH KNEE; RIGHT TOTAL KNEE REPLACEMENT; LEFT PARTIAL KNEE REPLACEMENT) Section, Hysterectomy, Joint Replacement, Orthopedic Respiratory: No Cardiac: Yes High Cholesterol Neurological: No 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 oz. 154.255754fl; BMI Method:Stated General Appearance: no apparent distress, obese, other (SOMEWHAT DRAMATIC, CRYING, HOLDING LEFT ARM) Neck: non-tender, full range of motion, supple, normal inspection Cardiovascular: normal peripheral pulses, regular rate, rhythm, no edema, no JVD, no murmur Respiratory: chest non-tender, normal breath sounds, no respiratory distress, no accessory muscle use Gastrointestinal: normal bowel sounds, non tender, soft Back: normal inspection, no CVA tenderness, no vertebral tenderness Shoulder: non-tender Elbow/Forearm: Left (MARKED TENDERNESS OVER LEFT PROXIMAL/LATERAL FOREARM AND LATERAL EPICONDYLE OF ELBOW, AND ADJACENT MUSCLES. 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, no motor/sensory deficits, alert, oriented x 3 Skin: normal color, warm/dry; No rash Progress/Results/Core Measures Results/Orders Lab Results Laboratory Tests Test 04/29/18 04:40 Range/Units White Blood Count 7.1 4.3-11.0 10^3/uL Red Blood Count 4.29 L 4.35-5.85 10^6/uL Hemoglobin 12.8 11.5-16.0 G/DL Hematocrit 38 35-52 % Mean Corpuscular Volume 89 80-99 FL Mean Corpuscular Hemoglobin 30 25-34 PG Mean Corpuscular Hemoglobin Concent 33 32-36 G/DL Red Cell Distribution Width 13.1 10.0-14.5 % Platelet Count 286 130-400 10^3/uL Mean Platelet Volume 9.5 7.4-10.4 FL Neutrophils (%) (Auto) 57 42-75 % Lymphocytes (%) (Auto) 36 12-44 % Monocytes (%) (Auto) 6 0-12 % Eosinophils (%) (Auto) 1 0-10 % Basophils (%) (Auto) 0 0-10 % Neutrophils # (Auto) 4.0 1.8-7.8 X 10^3 Lymphocytes # (Auto) 2.5 1.0-4.0 X 10^3 Monocytes # (Auto) 0.4 0.0-1.0 X 10^3 Eosinophils # (Auto) 0.1 0.0-0.3 10^3/uL Basophils # (Auto) 0.0 0.0-0.1 10^3/uL Prothrombin Time 13.6 12.2-14.7 SEC INR Comment 1.0 0.8-1.4 Activated Partial Thromboplast Time 33 24-35 SEC Sodium Level 140 135-145 MMOL/L Potassium Level 3.7 3.6-5.0 MMOL/L Chloride Level 106 98-107 MMOL/L Carbon Dioxide Level 24 21-32 MMOL/L Anion Gap 10 5-14 MMOL/L Blood Urea Nitrogen 11 7-18 MG/DL Creatinine 0.68 0.60-1.30 MG/DL Estimat Glomerular Filtration Rate > 60 BUN/Creatinine Ratio 16 Glucose Level 153 H 70-105 MG/DL Calcium Level 9.7 8.5-10.1 MG/DL Magnesium Level 2.0 1.8-2.4 MG/DL Total Bilirubin 0.7 0.1-1.0 MG/DL Aspartate Amino Transf (AST/SGOT) 14 5-34 U/L Alanine Aminotransferase (ALT/SGPT) 12 0-55 U/L Alkaline Phosphatase 87 40-136 U/L Troponin I < 0.30 <0.30 NG/ML Total Protein 7.5 6.4-8.2 GM/DL Albumin 4.3 3.2-4.5 GM/DL My Orders Orders - IVA BRIGGS DO Cbc With Automated Diff (04/29/18 03:59) Comprehensive Metabolic Panel (04/29/18 03:59) Magnesium (04/29/18 03:59) Protime With Inr (04/29/18 03:59) Partial Thromboplastin Time (04/29/18 03:59) Troponin I (04/29/18 03:59) Saline Lock/Iv-Start (04/29/18 03:59) Ekg Tracing (04/29/18 03:59) Monitor-Rhythm Ecg Trace Only (04/29/18 03:59) Ketorolac Injection (Toradol Injection) (04/29/18 04:30) Chest 1 View, Ap/Pa Only (04/29/18 04:27) Rx-Hydrocodone/Apap 5-325 Mg (Rx-Vicodin (04/29/18 05:45) Medications Given in ED Current Medications Medications Dose Ordered Sig/Palmer Route Start Time Stop Time Status Last Admin Dose Admin Acetaminophen/ Hydrocodone Bitart 1 ea Q4H PRN PO 04/29/18 05:45 04/29/18 05:48 DC 04/29/18 05:47 1 EA Ketorolac Tromethamine 30 mg ONCE ONCE IVP 04/29/18 04:30 04/29/18 04:31 DC 04/29/18 04:50 30 MG Vital Signs/I&O 04/29/18 04/29/18 03:49 05:48 Temp 98.4 98.4 Pulse 84 84 Resp 18 18 B/P (MAP) 182/102 (128) 164/84 (128) Pulse Ox 99 99 Blood Pressure Mean: 128 Progress Progress Note : Progress Note PAIN EASED BUT NOT COMPLETELY GONE AT DISMISSAL PT RESTING MUCH MORE COMFORTABLY AND NO LONGER CRYING AT DISMISSAL Initial ECG Impression Date: Apr 29, 2018 Initial ECG Impression Time: 04:22 Initial ECG Rate: 74 Initial ECG Rhythm: Normal Sinus Initial ECG Comparisson: No Previous ECG Available Diagnostic Imaging Comments CXR--NO ACUTE PROCESS, PENDING RADIOLOGIST REVIEW Reviewed: Reviewed by Me Departure Impression Primary Impression: LEFT ELBOW AND FOREARM PAIN Additional Impressions: Left elbow tendonitis Left lateral epicondylitis Disposition: 01 HOME, SELF-CARE Condition: Improved Departure-Patient Inst. Referrals: NO,LOCAL PHYSICIAN (PCP/Family) Primary Care Physician Patient Instructions: Lateral Epicondylitis (DC), Lateral Epicondylitis Exercises, Tendonitis (DC) Add. Discharge Instructions: TAKE NAPROXEN 500 MG TWICE A DAY GET PRESCRIPTION FOR HYDROCODONE FILLED THIS MORNING AND TAKE PRESCRIBED ICE AND / OR HEAT TO AREA AT 20 MINUTE INTERVALS WEAR ELBOW SUPPORT FOR COMFORT FOLLOW UP WITH YOUR DR ON MONDAY FOR FURTHER CARE All discharge instructions reviewed with patient and/or family. Voiced understanding. Images Extremities-Upper 1 - Severe, Tenderness IVA BRIGGS DO Apr 29, 2018 04:34
[2018-04-29 04:50] LABS: BASOPHILS % (AUTO) 0 % (0-10); EOSINOPHILS # (AUTO) 0.1 10^3/uL (0.0-0.3); EOSINOPHILS % (AUTO) 1 % (0-10); HEMATOCRIT 38 % (35-52); HEMOGLOBIN 12.8 G/DL (11.5-16.0); LYMPHOCYTES # (AUTO) 2.5 X 10^3 (1.0-4.0); LYMPHOCYTES % (AUTO) 36 % (12-44); MEAN CORPUSCULAR HEMOGLOBIN 30 PG (25-34); MEAN CORPUSCULAR HGB CONC 33 G/DL (32-36); MEAN CORPUSCULAR VOLUME 89 FL (80-99); MEAN PLATELET VOLUME 9.5 FL (7.4-10.4); MONOCYTES # (AUTO) 0.4 X 10^3 (0.0-1.0); MONOCYTES % (AUTO) 6 % (0-12); NEUTROPHILS % (AUTO) 57 % (42-75); PLATELET COUNT 286 10^3/uL (130-400); RED BLOOD COUNT 4.29 10^6/uL (4.35-5.85); RED CELL DISTRIBUTION WIDTH 13.1 % (10.0-14.5); WHITE BLOOD COUNT 7.1 10^3/uL (4.3-11.0)
[2018-04-29 05:04] LABS: PROTHROMBIN TIME PATIENT 13.6 SEC (12.2-14.7)
[2018-04-29 05:09] LABS: ALANINE AMINOTRANSFERASE 12 U/L (0-55); ALBUMIN 4.3 GM/DL (3.2-4.5); ALKALINE PHOSPHATASE 87 U/L (40-136); BILIRUBIN,TOTAL 0.7 MG/DL (0.1-1.0); BUN/CREATININE RATIO 16; CALCIUM 9.7 MG/DL (8.5-10.1); CARBON DIOXIDE 24 MMOL/L (21-32); CHLORIDE 106 MMOL/L (98-107); CREATININE SERUM 0.68 MG/DL (0.60-1.30); GFR ESTIMATED > 60; GLUCOSE 153 MG/DL (70-105); POTASSIUM 3.7 MMOL/L (3.6-5.0); SODIUM 140 MMOL/L (135-145); TOTAL PROTEIN 7.5 GM/DL (6.4-8.2)
[2018-04-29] MEDS ORDERED: RX-HYDROCODONE/APAP 5/325 MG #4 TAB PK PO PRN (05:45)
[2018-04-29 05:48] VITALS: BP 164/84
--- NOTE | 2018-04-29 06:25 | Diagnostic Imaging Report ---
EXAMINATION: Chest radiograph, portable AP view. DATE: April 29, 2018 at 0437 hours. INDICATION: 43-year-old female, left arm pain. COMPARISON: February 14, 2018. FINDINGS: Heart size and mediastinal contours are unremarkable. There is no identified pneumothorax. There is mild elevation of the right hemidiaphragm similar to the comparison exam. There are minimal streaky opacities in the right lung base which are unchanged and likely reflect mild scarring and/or atelectasis. There is no identified interval focal airspace consolidation. There is no large pleural effusion. There are mild bilateral acromioclavicular degenerative changes. IMPRESSION: 1. No identified acute cardiopulmonary abnormality. Dictated by: Dictated on workstation # [id number]
== END 2018-04-29 05:48 | disposition home or self-care (01) ==
LOC: EDUNIT# 03:40 → ER 03:41
DX: M77.12 Lateral epicondylitis, left elbow (principal); E78.00 Pure hypercholesterolemia, unspecified; E66.9 Obesity, unspecified; E11.9 Type 2 diabetes mellitus without complications; F17.210 Nicotine dependence, cigarettes, uncomplicated; Z87.59 Personal history of other complications of pregnancy, childbirth and the puerperium; Z90.710 Acquired absence of both cervix and uterus; Z68.43 Body mass index [BMI] 50.0-59.9, adult; Z96.653 Presence of artificial knee joint, bilateral; Z88.0 Allergy status to penicillin; Z79.82 Long term (current) use of aspirin; Z79.84 Long term (current) use of oral hypoglycemic drugs
CPT/HCPCS: 36415; 71045; 80053; 83735; 84484; 85025; 85610; 85730; 93005; 93041; 96374